=== PATIENT | female | born 1960 | race Caucasian/White ===

== ENCOUNTER 2025-04-16 14:17 | Outpatient (AMB) | payer MEDICAID, SELFPAY ==
--- OUTSIDE RECORDS SUMMARY | 2024-03-18 09:31 | XMS_ITS | Encounter Summary ---
Author Organization [facility] Address [address] [place] [address] Care Team Providers Care Salvationist Name Role Phone Lu Ibrahim MD Primary Care Prov ider Encounter Details Date Type Department Care Team (Late st Contact Info) Description 03/18/2024 10:31 AM EDT Hospital Encounter TH HISTORIC ENCOUNTERS EASTERN CONVERSION ONLY Social History Tobacco Use Types Packs/Day Years Used Date Smoking Tobacco: Never Smokeless Tobacco: Never Alcohol Use Standard Drinks/Week Comments Yes 0 (1 standard drink = 0.6 oz pur e alcohol) rare Housing Instability Answer Date Recorde d Are you worried that in the next 2 months you may not have stable housing? No 03/19/2025 Food Access & Nutrition Answer Date Rec orded Do you have access to a vari ety of food including fruits and vegetables? Yes 03/19/2025 Access to Healthcare Answer Date Record ed Within the last 3 months, ho w many times did you visit the emergency department for your medical care? 1 03/19/2025 Health Literacy Answer Date Recorded How often do you need to hav e someone help you when you read instructions, pamphlets, or other written material from your doctor or pharmacy? Never 03/19/2025 Caregiver: How often do you need to have someone help you when you read instructions, pamphlets, or other written material from your doctor or pharmacy? Not on file 03/19/2025 Financial Risk Answer Date Recorded How hard is it for you to pa y for the very basics like food, housing, medical care, and air conditioning / heating? Not very hard 03/19/2025 Transportation Answer Date Recorded Has the lack of transportati on kept you from meetings, work, or from getting things needed for daily living? No Has the lack of transportati on kept you from medical appointments or from getting medications? No 03/19/2025 Social Isolation Answer Date Recorded How often do you feel lonely or isolated from those around you? Not asked 03/19/2025 Food Risk Answer Date Recorded Within the past 12 months we worried whether our food would run out before we got money to buy more. Not asked 03/19/2025 Within the past 12 months th e food we bought just didn't last and we didn't have money to get more. Never true 03/19/2025 Dependent Care Answer Date Recorded Do you need help finding or paying for care for your loved ones. For example, child psychometrist or elderly care for an older adult? No 03/19/2025 Education Answer Date Recorded Do you think completing more education or training, like finishing a GED, going to college, or learning a trade, would be helpful for you? N/A 03/19/2025 Employment and Income Answer Date Recor ded During the last four weeks, have you been actively looking for work? No 03/19/2025 Living Situation Answer Date Recorded What is your living situation? Unrecognized valu e 03/19/2025 Interpersonal Safety Answer Date Record ed Physical Abuse Unrecognized value 04/13/2025 Verbal Abuse Unrecognized value 04/13/2025 Comments No Sex and Gender Information Value Date Recorded Sex Assigned at Female 04/01/2024 7:11 AM EST Legal Sex Female 8:40 PM EST Gender Identity Female 04/01/2024 7:11 AM EST Sexual Orientation Not on file documented as of this encounter Last Filed Vital Signs Vital Sign Reading Time Taken Comments Blood Pressure - - Pulse - - Temperature - - Respiratory Rate - - Oxygen Saturation - - Inhaled Oxygen Concentration - - Weight 96.2 kg (212 lb) 07/30/2023 9:08 AM EST Height 167.6 cm (5' 6 ) 07/30/2023 9:08 AM EST Body Mass Index 34.22 07/30/2023 9:08 AM EST documented in this encounter Functional Status * Calculated C-SSRS Risk Score (Lifetime/Recent) Answer Date of Assessment Author No Risk Indicated 04/05/2025 8:22 AM Lisa Lester, RN * [place] Suicide Severity Rating Scale (Screener/Recent Self-Report) Question Answer Date of Assessment Author 1. Wish to be (Past 1 Month) No 025 8:22 AM Lisa Lester, RN 2. Non-Specific Active Suici kinsey Thoughts (Past 1 Month) No 04/05/2025 8:22 AM Lisa Lester, RN 6. Suicidal Behavior (Lifetime) No 8:22 AM Lisa Lester, RN documented as of this encounter Progress Notes * Historical, Notes Results - 03/18/2024 10:30 AM EDT Patient arrives ambulatory to unit for a port flush. Patient sent in an urgent message to Dr. Souza regarding SOB that she's experienced the last 6 months. Patient feels that it could be anemia related, requesting to have labs drawn. Patient has a f/u appt with Dr. Souza on 03/31. Orders per Dr. Souza; cbcd, ferritan and iron studies. Lab results will be discussed at time of visit. Port accessed, +BR. Labs drawn per physician order. Port flushed per protocol. Next appt scheduled. Patient discharged stable, with steady gait. documented in this encounter Plan of Treatment Upcoming Encounters Date Type Department Care Team (Late st Contact Info) Description 04/17/2025 9:30 AM EST Appointment [facility] Center [address] [phone] 04/22/2025 10:30 AM EST Office Visit Adult Medicine [address] [phone] Lu Ibrahim MD [address] [place] [address] 07/01/2025 8:30 AM EST Office Visit Adult [address] [phone] Lu Ibrahim MD [address] [place] [address] 08/27/2025 8:45 AM EDT Office Visit [facility] Hematology Oncology [address] [place] [phone] Oswald Souza MD [address] [place] [address] documented as of this encounter Visit Diagnoses Not on filedocumented in this encounter Care Teams Salvationist Relationship Specialty Start Date End Date Lu Ibrahim MD PCP - General Internal Medicine 12/26/21 04/21/24 documented as of this encounter
--- OUTSIDE RECORDS SUMMARY | 2025-04-13 10:00 | XMS_ITS | Encounter Summary ---
Author Organization [facility] Address [address] [place] [address] Care Team Providers Care Chief Operator Synthesis Name Role Phone Lu Ibrahim MD Primary Care Prov ider Reason for Visit * Reason Comments Hospital Follow[facility] Encounter Details Date Type Department Care Team (Late st Contact Info) Description 04/13/2025 10:00 AM EST Office Visit Adult Medicine [address] [phone] Lu Ibrahim MD [address] [place] [address] Hospital discharge follow-up (Primary Dx); Complicated migraine; Positive Lyme disease serology; Brooks's palsy; Secondary malignant neoplasm of other specified sites (CMS/HCC V24, CMS/HCC V28); Moderate major depression (CMS/HCC V24, CMS/HCC V28) Social History Tobacco Use Types Packs/Day Years Used Date Smoking Tobacco: Never Smokeless Tobacco: Never Tobacco Cessation:Counseling Given: Not Answered Alcohol Use Standard Drinks/Week Comments Yes 0 [...] care for your loved ones. For example, teacher early childhood development or elderly care for an older adult? [...] Sign Reading Time Taken Comments Blood Pressure 117/75 04/13/2025 9:43 AM EST Pulse 79 04/13/2025 9:43 AM EST Temperature 36.6 C (97.9 F) 04/13/2025 9:43 AM EST Respiratory Rate 15 04/13/2025 9:43 AM EST Oxygen Saturation 99% 04/13/2025 9:43 AM EST Inhaled Oxygen Concentration - - Weight 100 kg (220 lb 12.8 oz) 04/13/2025 9:43 A M EST Height 167.6 cm (5' 6 ) 04/13/2025 9:43 AM EST Body Mass Index 35.64 04/13/2025 9:43 AM EST documented in this encounter Functional Status * Are you deaf or do you have serious difficulty hearing? Answer Date of Assessment Author No 04/04/2025 7:55 AM Sharla Gauthier RN * Are you blind or do you have serious difficulty seeing, even when wearing glasses? Answer Date of Assessment Author No 04/04/2025 7:55 AM Sharla Gauthier RN * Do you have serious difficulty walking or climbing stairs? Answer Date of Assessment Author No 04/04/2025 7:55 AM Sharla Gauthier RN * Do you have serious difficulty dressing or bathing? Answer Date of Assessment Author No 04/04/2025 7:55 AM Sharla Gauthier RN * Because of a physical, mental, or emotional condition, do you have serious difficulty doing errandsalone such as visiting the doctor? Answer Date of Assessment Author No 04/04/2025 7:55 AM Sharla Gauthier RN documented as of this encounter Mental Status * Because of a physical, mental, or emotional condition, do you have serious difficulty concentrating, remembering, or making decisions? (5 years old or older) Answer Entry Date Author No 04/04/2025 7:55 AM EST Sharla Love RN documented in this encounter Ordered Prescriptions Prescription Sig Dispense Quantity Refills Last Filled Start Date End Date doxycycline (VIBRAMYCIN) 100 mg capsule Take 1 capsule (100 mg total) by mouth 2 (two) times a day for 14 days. Take with at least 8 ounces (large glass) of water, do not lie down for 30 minutes after. Administer 2 hours before or after multivitamins, antacids, or other products containing polyvalent cations (i.e., calcium, iron, magnesium, selenium, zinc). 28 each 04/13/2025 documented in this encounter Progress Notes * Lu Ibrahim MD - 04/13/2025 10:00 AM ESTAssociated Problem(s): Secondary malignant neoplasm of other specified sites (CMS/HCC V24, CMS/HCC V 28) Patient with advance left breast malignancy. Initially there was concerned for metastatic disease given her neurological symptoms, however no evidence of it. * Lu Ibrahim MD - 04/13/2025 10:00 AM ESTAssociated Problem(s): Moderate major depression (CMS/HCC V24, CMS/HCC V28) Positive screening for depression. She is already established with and follows regularly. Continue Fluoxetine 10mg, Lorazepam as needed. * Lu Ibrahim MD - 04/13/2025 10:00 AM EST Images from the original note were not included. TRANSITIONAL CARE MANAGEMENT NOTE Meenakshi Bowden is a 64 y.o. (: 1960) female presents today for a transitional care appointment. The patient was discharged with a diagnosis of: complicated migraine with aura. Admit Date: Apr 05 Discharge Date: Apr 07 Date of Service: 04/13/2025 Facility: [facility] Date patient was contacted/or attempted to be contacted: 04/08/2025 (Unless visit is 2 days from discharge) The discharge summary and/or Transitional Care Management documentation was reviewed. As per ER notes, patient with a metastatic breast cancer, DVT, anxiety/depression, [facility], drooling and dysarthria. On evaluation came back she was found to have dysarthria. CT brain, MRI brain, MRI orbit/face/neck, head neck CT angiography with no acute abnormalities. Blood tests wnl, with the exception of lyme test that reported positive IgG, neg IgM. She does not remember any tick bite or recent exposure to outdoors. No fever or chills. She was evaluated by neurology, considered a complicated Migraine. Discharged home after deemed stable. Recommended to follow up with PCP and neurology. Comes today for a follow up. Dysarthria is persistent and some numbness on the left side of the tongue. Pending apt with neurology. No new symptoms. The following portions of the patient's history were reviewed by a provider in this encounter and updated as appropriate: Allergies[1] Current Outpatient Medications Medication Instructions apixaban (ELIQUIS) 2.5 mg, oral, 2 times daily anvojpu-hltbiokzieeii-fddjrxrf (EXCEDRIN MIGRAINE) 250-250-65 mg per tablet 1 tablet, Every 8 hoursPRN bisacodyL (DULCOLAX) 5 mg EC tablet Take 2 tablets by mouth right before beginning bowel prep. See instructions provided by the office calcium carbonate-vitamin D3 (Calcium 600 + D,3,) 600 mg-5 mcg (200 unit) per tablet 1 tablet, Daily diphenhydrAMINE (BENADRYL) 25 mg, Every 6 hours PRN diphenhydrAMINE-zinc acetate (BENADRYL) cream Apply topically 3 (three) times a day as needed for itching. doxycycline (VIBRAMYCIN) 100 mg, oral, 2 times daily, Take with at least 8 ounces (large glass) of water, do not lie down for 30 minutes after. Administer 2 hours before or after multivitamins, antacids, or other products containing polyvalent cations (i.e., calcium, iron, magnesium, selenium, zinc). FLUoxetine (PROZAC) 10 mg, oral, Daily letrozole (FEMARA) 2.5 mg, oral, Daily lidocaine-prilocaine (EMLA) 2.5-2.5 % cream Topical, As needed LORazepam (ATIVAN) 0.5 mg, oral, 2 times daily PRN, for anxiety meclizine (ANTIVERT) 25 mg, oral, 3 times daily PRN netvbreo-mgh-podn-FA-vit K-lut (Centrum Silver Women) 8 mg iron-400 mcg-50 mcg tablet Take by mouth. OMEGA-3 FATTY ACIDS ORAL Take by mouth. palbociclib (IBRANCE) 100 mg, oral, Daily, Take days 1-21 followed by 7 days off, repeat every 28 days. polyethylene glycol (Golytely) 236-22.74-6.74 -5.86 gram solution Take 4L by mouth once for one dose. May substitue any PEG. Starting at 2PM the day before your procedure drink 1 8oz glasses at your own pace until you complete half of the gallon. Finish 2nd half of the gallon at 8PM. rosuvastatin (CRESTOR) 10 mg, oral, Daily Depression Screening Over the last 2 weeks, how often have you been bothered by little interest or pleasure in doing things?: (Patient-Rptd) More than half the days Over the last 2 weeks, how often have you been bothered by feeling down, depressed, or hopeless?: (Patient-Rptd) Several days Depression Risk: (Patient-Rptd) 3 PHQ9 Full Set of Questions Over the last 2 weeks, how often have you been bothered by little interest or pleasure in doing things?: (Patient-Rptd) More than half the days Over the last 2 weeks, how often have you been bothered by feeling down, depressed, or hopeless?: (Patient-Rptd) Several days Over the last 2 weeks, how often have you been bothered by trouble falling or staying asleep, or sleeping too much?: (Patient-Rptd) Several days Over the last 2 weeks, how often have you been bothered by feeling tired or having little energy?: (Patient-Rptd) More than half the days Over the last 2 weeks, how often have you been bothered by poor appetite or overeating? : (Patient-Rptd) More than half the days Over the last 2 weeks, how often have you been bothered by feeling bad about yourself -- or that you are a failure or have let yourself or your family down?: (Patient-Rptd) Several days Over the last 2 weeks, how often have you been bothered by trouble concentrating on things, such asreading the newspaper or watching television?: (Patient-Rptd) Several days Over the last 2 weeks, how often have you been bothered by moving or speaking so slowly that other people could have noticed? Or the opposite -- being so fidgety or restless that you have been movingaround a lot more than usual?: (Patient-Rptd) Not at all Over the last 2 weeks, how often have you been bothered by thoughts that you would be better off or of hurting yourself in some way?: (Patient-Rptd) Not at all PHQ -9 Depression Risk Score: (Patient-Rptd) 10 Screening Result: (Patient-Rptd) Positive Risk Category: (Patient-Rptd) Moderate BP 117/75 Pulse 79 Temp 36.6 ??C (97.9 ??F) (Temporal) Resp 15 Ht 1.676 m (66 ) Wt 100 kg(220 lb 12.8 oz) BMI 35.64 kg/m?? SpO2: 99 % Physical Exam Vitals reviewed. Constitutional: Appearance: Normal appearance. Cardiovascular: Rate and Rhythm: Normal rate and regular rhythm. Heart sounds: Normal heart sounds. Pulmonary: Effort: Pulmonary effort is normal. Breath sounds: Normal breath sounds. Musculoskeletal: General: No swelling. Normal range of motion. Cervical back: Neck supple. Skin: General: Skin is warm. Neurological: Mental Status: She is alert. Comments: Dysartria and mild facial droop Assessment & Plan Hospital discharge follow-up Patient admitted to the hospital for an episode of dysarthria and facial droop. Images did not showany acute process. Blood tests unremarkable with the exception of Lyme test, positive for IgG, negative for IgM. No hx of exposure, and no other symptoms. Neurology evaluated her, considered a complicated migraine. She was discharged after deemed stable. Comes today for follow up, dysarthria is persistent and numbness on the left side of her tongue. Mild facial deviation. She will see neurology. We discussed about the lyme test, that could represent an old infection, but at this point is hard to know. Will recheck new levels in 2 weeks to confirm. However given her symptoms, we decided to start treatment with Doxycycline for 2 weeks. Will test for OSWALDO, and she would like her B12 levels tested. Order was placed today. Complicated migraine As above Positive Lyme disease serology As above Brooks's palsy As above Orders: Vitamin B2; Future OSWALDO IFA with titer and pattern; Future Borrelia burgdorferi antibody; Future Secondary malignant neoplasm of other specified sites ([facility] V24, [facility] V28) Patient with advance left breast malignancy. Initially there was concerned for metastatic disease given her neurological symptoms, however no evidence of it. Moderate major depression ([facility] V24, [facility] V28) Positive screening for depression. She is already established with and follows regularly. Continue Fluoxetine 10mg, Lorazepam as needed. The complexity of medical decision making for this patient's transitional care is moderate. As part of the TCM, I have: Reviewed discharge information, I.e.: discharge summary or jmktrfktts-hm-kjyd documents, Reviewed the patient's need for, or follow-up on, diagnostic tests and treatments,Educated the patient, family, guardian, or caregiver, and Established or re-establish referrals andarrange needed community resources Advance Care Planning Advance care planning is the process of planning for future medical care in case you are unable to make your own medical decisions. It involves choosing a health care franchise sales representative and reviewing future health care directives. The patient Advance Directives: does have advance directives and/or surrogate decision maker.. Lu Dickerson MD ADULT MEDICINE [address] [address] Dept: [phone] Dept [1] Allergies Allergen Reactions Adhesive Tape-Silicones Other Penicillins Hives Sulfa (Sulfonamide Antibiotics) Hives Vicodin [Hydrocodone-Acetaminophen] Other documented in this encounter Plan of Treatment Upcoming Encounters Date Type Department Care Team (Late st Contact Info) Description 04/17/2025 9:30 AM EST Appointment [facility] Center [address] [place] [phone] 04/22/2025 10:30 AM EST Office Visit Adult [address] [phone] Lu Ibrahim MD [address] [place] [address] 07/01/2025 8:30 AM EST Office Visit [address] [phone] Lu Ibrahim MD [address] [place] [address] 08/27/2025 8:45 AM EDT Office Visit [facility] Hematology Oncology [address] [place] [phone] Oswald Souza MD [address] [place] [address] Pending Results Name Type Priority Associated Diagnoses Date /Time Vitamin B2 Lab Routine Brooks's palsy 04/13/2025 11:42 AM EST Scheduled Orders Name Type Priority Associated Diagnoses Orde r Schedule Vitamin B2 Lab Routine Brooks's palsy 1 Occurrences starting 04/13/2025 until 04/13/2026 Borrelia burgdorferi antibody Lab Routine Brooks's palsy Expected: 04/27/2025, Expires: 04/13/2026 documented as of this encounter Results * OSWALDO IFA with titer and pattern (04/13/2025 11:42 AM EST) OSWALDO Negative Negative 04/14/2025 12:05 PM EST [facility] Comment:OSWALDO performed by ind irect immunofluorescence (IFA) using HEp-2 substrate. 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 ([facility] V24, [facility] V28) Moderate major depression ([facility] V24, [facility] V28) Major depressive disorder, single episode, moderate documented in this encounter Discontinued Medications Medication Sig Discontinue Reason Start Date End Da te calcium carbonate-vitamin D3 600 mg-20 mcg (800 unit) tablet TAKE 1 TABLET BY MOUTH THREE TIMES A DAY 03/03/2025 04/13/2025 documented as of this encounter Additional Health Concerns Active Problems Noted Date Diagnosed Date Autogenerated Problem 04/13/2025 Assessment Noted Time PHQ-9 Depression Total Score: 10 025 9:18 AM EST documented as of this encounter Care Teams Chief Operator Synthesis Relationship Specialty Start Date End Date Lu Ibrahim MD [address] [place] [address] PCP - General Internal Medicine 04/02/25 documented as of this encounter
--- OUTSIDE RECORDS SUMMARY | 2025-04-13 11:40 | XMS_ITS | Encounter Summary ---
Author Organization [facility] Address [address] [place] [address] Care Team Providers Care Solar Energy System Installer Helper Name Role Phone Lu Ibrahim MD Primary Care Prov ider Encounter Details Date Type Department Care Team (Late st Contact Info) Description 04/13/2025 11:40 AM EST Lab Draw Station - [address] [place] [phone] Brooks's palsy Social History Tobacco Use Types Packs/Day Years [...] Record ed Within the last 3 months, arturo w many times did you visit the [...] for your loved ones. For example, child welfare social worker or elderly care for an older adult? [...] on file documented as of this encounter Functional Status * Are you [...] Entry Date Author No 04/04/2025 7:55 AM Sharla Gauthier RN documented in this encounter Plan of Treatment Upcoming Encounters Date Type Department Care Team (Late st Contact Info) Description 04/17/2025 9:30 AM EST Appointment [facility] [address] [place] [phone] 04/22/2025 10:30 AM EST Office Visit Adult Medicine [address] [phone] Lu Ibrahim MD [address] [place] [address] 07/01/2025 8:30 AM EST Office Visit Adult Medicine [address] [phone] Lu Ibrahim MD [address] [place] [address] 08/27/2025 8:45 AM EDT Office Visit [facility] Hematology Oncology [address] [place] [phone] Oswald Souza MD [address] [place] [address] Pending Results Name Type Priority Associated Diagnoses Date /Time Vitamin B2 Lab Routine Brooks's palsy 04/13/2025 11:42 AM EST documented as of this encounter Procedures Procedure Name Priority Date/Time Associated Diagnosis Comments OSWALDO IFA WITH TITER AND PATTERN Routine 04/13/2025 11:42 AM EST Brooks's palsy documented in this encounter Results * OSWALDO IFA with titer and pattern (04/13/2025 11:42 AM EST) OSWALDO Negative Negative 04/14/2025 12:05 PM EST [facility] Comment:OSWALDO performed by ind irect immunofluorescence (IFA) using HEp-2 substrate. Blood Venous blood specimen / Unknown Venipuncture / Unknown 04/13/2025 11:42 AM EST 04/13/2025 11:57 AM EST us Lu Ibrahim MD LAB BLOOD ORDERABL ES Final Result [facility] [address] [place] [address], documented in this encounter Visit Diagnoses Diagnosis Brooks's palsy documented in this encounter Additional Health Concerns Active Problems Noted Date Diagnosed Date Autogenerated Problem 04/13/2025 Assessment Noted Time PHQ-9 Depression Total Score: 10 025 9:18 AM EST documented as of this encounter Care Teams Solar Energy System Installer Helper Relationship Specialty Start Date End Date Lu Ibrahim MD [address] [place] [phone] PCP - General Internal Medicine 04/02/25 documented as of this encounter
--- OUTSIDE RECORDS SUMMARY | 2025-04-13 12:27 | XMS_ITS | Encounter Summary ---
Author Organization [facility] Address [address] [place] [address] Care Team Providers Care Alterations Sewer Name Role Phone Lu Ibrahim MD Primary Care Prov ider Reason for Referral * Hospital - Outpatient (Routine) - Authorized Specialty Diagnoses / Procedures Referred By Contac t Referred To Contact Diagnoses Anemia, unspecified type Procedures EGD Anesthesia - MAC; [facility] Betito Dawson MD [address] [place] [phone] Phone: tel: fax: [facility] Referral ID Status Reason Start Date Expiration Date V isits Requested Visits Authorized [id number] Authorized 04/13/2025 04/13/2026 1 1 * Hospital - Outpatient (Routine) - Authorized Specialty Diagnoses / Procedures Referred By Contac t Referred To Contact Diagnoses Anemia, unspecified type Procedures COLONOSCOPY Anesthesia - MAC; [facility] Betito Dawson MD [address] [place] [phone] Phone: tel: fax: [facility] Referral ID Status Reason Start Date Expiration Date V isits Requested Visits Authorized [id number] Authorized 04/13/2025 04/13/2026 1 1 Reason for Visit * Hospital - Outpatient (Routine) - Authorized Specialty Diagnoses / Procedures Referred By Contac t Referred To Contact Diagnoses Anemia, unspecified type Procedures EGD Anesthesia - MAC; [facility] Betito Dawson MD [address] [address] Phone: tel: fax: [facility] Referral ID Status Reason Start Date Expiration Date V isits Requested Visits Authorized [id number] Authorized 04/13/2025 04/13/2026 1 1 Encounter Details Date Type Department Care Team (Latest Contact Info) Description 04/13/2025 12:27 PM EST Hospital Encounter [facility] Endoscopy [address] [place] [address] Betito Dawson MD [address] [address] Anemia, unspecified type Social History Tobacco Use Types Packs/Day Years [...] care for your loved ones. For example, childbirth and infant care teacher or elderly care for an older adult? [...] Sign Reading Time Taken Comments Blood Pressure 128/75 04/13/2025 1:51 PM EST Pulse 78 04/13/2025 1:51 PM EST Temperature 36.8 C (98.2 F) 04/13/2025 1:31 PM EST Respiratory Rate 16 04/13/2025 1:51 PM EST Oxygen Saturation 99% 04/13/2025 1:51 PM EST Inhaled Oxygen Concentration - - Weight 99.8 kg (220 lb) 04/13/2025 12:44 PM EST Height 167.6 cm (5' 6 ) 04/13/2025 12:44 PM EST Body Mass Index 35.51 04/13/2025 12:44 PM EST documented in this encounter Functional Status [...] Sharla Gauthier RN documented in this encounter Progress Notes * Micaela Perdomo RN - 04/13/2025 1:21 PM EST Colonoscopy complete at 1323 EGD started at 1326 documented in this encounter H&P Notes * Betito Dawson MD - 04/13/2025 3:00 PM EST Pre-Op Diagnosis: Melena, anemia, FH colon cancer Proposed Procedure: colon and EGD Performing Surgeon/MD/Endoscopist: Betito Dawson MD Medical/History: Medical History[1]Surgical History[2] Medications/Allergies: Prior to Admission medications Medication Sig Start Date End Date Taking? Authorizing Provider calcium carbonate-vitamin D3 (Calcium 600 + D,3,) 600 mg-5 mcg (200 unit) per tablet Take 1 tablet by mouth 1 (one) time each day. Yes Historical Provider, FLUoxetine (PROzac) 10 mg capsule Take 1 capsule (10 mg total) by mouth 1 (one) time each day. 01/13/25 Yes Lu Ibrahim MD letrozole (FEMARA) 2.5 mg tablet TAKE 1 TABLET BY MOUTH 1 TIME EACH DAY. 12/01/24 Yes Oswald Souza MD apquocwd-pmc-oyja-FA-vit K-lut (Centrum Silver Women) 8 mg iron-400 mcg-50 mcg tablet Take by mouth. Yes Historical Provider, palbociclib (IBRANCE) 100 mg Take 1 tablet (100 mg total) by mouth 1 (one) time each day. Take days1-21 followed by 7 days off, repeat every 28 days. 03/11/25 Yes Oswald Souza MD rosuvastatin (CRESTOR) 10 mg tablet TAKE 1 TABLET BY MOUTH ONCE A DAY 02/24/25 Yes Serenity Chatman MD apixaban (ELIQUIS) 2.5 mg tablet Take 1 tablet (2.5 mg total) by mouth 2 (two) times a day. Historical Provider, hrnxoik-nwdhqrnplnsvg-xwaqnhrr (EXCEDRIN MIGRAINE) 250-250-65 mg per tablet Take 1 tablet by mouth every 8 (eight) hours if needed for headaches. 03/25/25 Historical Provider, bisacodyL (DULCOLAX) 5 mg EC tablet Take 2 tablets by mouth right before beginning bowel prep. See instructions provided by the office 04/02/25 Betito Dawson MD diphenhydrAMINE (BENADRYL) 25 mg capsule Take 1 capsule (25 mg total) by mouth every 6 hours as needed. Historical Provider, diphenhydrAMINE-zinc acetate (BENADRYL) cream Apply topically 3 (three) times a day as needed for itching. Historical Provider, doxycycline (VIBRAMYCIN) 100 mg capsule Take 1 capsule (100 mg total) by mouth 2 (two) times a day for 14 days. Take with at least 8 ounces (large glass) of water, do not lie down for 30 minutes after. Administer 2 hours before or after multivitamins, antacids, or other products containing polyvalent cations (i.e., calcium, iron, magnesium, selenium, zinc). 04/13/25 04/27/25 Lu Ibrahim MD lidocaine-prilocaine (EMLA) 2.5-2.5 % cream Apply topically if needed for mild pain. 12/01/24 Oswald Riggs MD LORazepam (ATIVAN) 0.5 mg tablet Take 1 tablet (0.5 mg total) by mouth 2 (two) times a day if needed for anxiety. for anxiety 03/30/25 Lu Dickerson MD meclizine (ANTIVERT) 25 mg tablet Take 1 tablet (25 mg total) by mouth 3 (three) times a day if needed for dizziness. 04/14/24 Lu Ibrahim MD OMEGA-3 FATTY ACIDS ORAL Take by mouth. Historical Provider, polyethylene glycol (Golytely) 236-22.74-6.74 -5.86 gram solution Take 4L by mouth once for one dose. May substitue any PEG. Starting at 2PM the day before your procedure drink 1 8oz glasses at your own pace until you complete half of the gallon. Finish 2nd half of the gallon at 8PM. 04/02/25 Betito Dawson MD apixaban (Eliquis) 2.5 mg tablet Take 1 tablet (2.5 mg total) by mouth 2 (two) times a day. 03/30/2511 Lu Ibrahim MD calcium carbonate-vitamin D3 600 mg-20 mcg (800 unit) tablet TAKE 1 TABLET BY MOUTH THREE TIMES A DAY Patient taking differently: Take 1 each by mouth 2 (two) times a day. 03/03/25 04/13/25 Lu Ibrahim MD Patient Age:64 y.o. Vitals: Vitals: 04/13/25 1244 BP: 131/75 Pulse: 78 Resp: 16 Temp: 37.2 ??C (98.9 ??F) SpO2: 98% Physical Exam: Mental Status: Clear HEENT: WNL Heart: WNL Lungs: WNL Abdomen: WNL Extremities: WNL Neuro: WNL Labs: Imaging: Diagnosis/Plan: Colonoscopy and EGD [1] Past Medical History: Diagnosis Date Allergic rhinitis 06/18/2017 DX:Allergic rhinitis Anxiety and depression DX:Anxiety and depression At high risk for breast cancer 10/30/2017 DX:At high risk for breast cancer Breast cancer ([facility] V24, [facility] V28) Congenital renal anomaly DX:Congenital renal anomaly; COMMENT: Hydronephrosis Depression DX:Depression DVT (deep venous thrombosis) ([facility] V24, [facility] V28) Elevated liver enzymes 01/17/2022 DX:Elevated liver enzymes Endometrial cancer ([facility] V24, [facility] V28) Exercise-induced asthma DX:Exercise-induced asthma Family history of breast cancer DX:Family history of breast cancer Hemorrhoids DX:Hemorrhoids Lichen sclerosus DX:Lichen sclerosus [2] Past Surgical History: Procedure Laterality Date BLADDER SUSPENSION PROCEDURE: HISTORICAL BLADDER SUSPENSION OTHER SURGICAL HISTORY Left PROCEDURE: HISTORY OTHER; COMMENT: L breast ductectomy OTHER SURGICAL HISTORY Left 07/08/2013 PROCEDURE: MO LAPAROSCOPY SURG PYELOPLASTY; COMMENT: robotic assisted left pyeloplasty for UPJ obstruction STEREOTACTIC CORE BIOPSY Left documented in this encounter Procedure Notes * Zhang Reynaga RN - 04/13/2025 3:00 PM EST Pt alert and oriented Tolerating po intake well Md bedside to speak with pt Call [facility] All belongings returned to pt documented in this encounter Plan of Treatment Upcoming Encounters Date Type Department Care Team (Late st Contact Info) Description 04/17/2025 9:30 AM EST Appointment [facility] [address] [place] [address] [address] [place] [phone] 04/22/2025 10:30 AM EST Office Visit [address] [phone] Lu Ibrahim MD [address] [place] [address] 07/01/2025 8:30 AM EST Office Visit [address] [phone] Lu Ibrahim MD [address] [place] [address] 08/27/2025 8:45 AM EDT Office Visit [facility] Hematology Oncology [address] [place] [phone] Oswald Souza MD [address] [place] [address] documented as of this encounter Procedures Procedure Name Priority Date/Time Associated Diagnosis Comments COLONOSCOPY Routine 04/13/2025 1:30 PM EST Anemia, unspecified type EGD Routine 04/13/2025 1:30 PM EST Anemia, unspecified type documented in this encounter Results * EGD Anesthesia - MAC; [facility] (04/13/2025 1:30 PM EST) Anatomical Region Laterality Modality Endoscopy 04/13/2025 1:24 PM EST Impressions 04/13/2025 1:30 PM EST - Normal esophagus. - Normal stomach. - Normal examined duodenum. - No specimens collected. Recommendation: - Continue present medications. Narrative 04/13/2025 1:30 PM EST [facility] GI Patient Name: Meenakshi Bowden Procedure Date: 04/13/2025 1:24 PM Date of : 1960 Age: 64 Room: ROOM 15 Gender: Female Note Status: Finalized Attending MD: Betito Dawson MD, Procedure Date No Time: 04/13/2025 Procedure: Upper GI endoscopy Indications: Melena, Anemia Providers: Betito Dawson MD Referring MD: Betito Dawson MD Medicines: Propofol per Anesthesia Complications: No immediate complications. Estimated Blood Loss: Estimated blood loss: none. Procedure: Pre-Anesthesia Assessment: - ASA Grade Assessment: III - A patient with severe systemic disease. After obtaining informed consent, the endoscope was passed under direct vision. Throughout the procedure, the patient's blood pressure, pulse, and oxygen saturations were monitored continuously.The Olympus Gastroscope was introduced through the mouth, and advanced to the second part of duodenum. The upper GI endoscopy was accomplished without difficulty. The patient tolerated the procedure well. Findings: The esophagus was normal. The stomach was normal. The examined duodenum was normal. Procedure Code(s): --- Professional --- 84412, Esophagogastroduodenoscopy, flexible, transoral; diagnostic, including collection of specimen(s) by brushing or washing, when performed (separate procedure) Diagnosis Code(s): --- Professional --- K92.1, Melena (includes Hematochezia) D64.9, Anemia, unspecified CPT copyright 2020 [employer]. All rights reserved. The codes documented in this report are preliminary and upon office machine inspector review may be revised to meet current compliance requirements. Betito Dawson MD 04/13/2025 1:30:22 PM This report has been signed electronically.Betito Dawson MD Number of Addenda: 0 Note Initiated On: 04/13/2025 1:24 PM Scope In: Scope Out: Endoscopy Department at [facility] - [address] [place] [phone] Procedure Note Betito Dawson MD - 04/13/2025 [facility] GI Patient Name: Meenakshi Bowden Procedure Date: 04/13/2025 1:24 PM Date of : 1960 Age: 64 Room: ROOM 15 Gender: Female Note Status: Finalized Attending MD: Betito Dawson MD, Procedure Date No Time: 04/13/2025 Procedure: Upper GI endoscopy Indications: Melena, Anemia Providers: Betito Dawson MD Referring MD: Betito Dawson MD Medicines: Propofol per Anesthesia Complications: No immediate complications. Estimated Blood Loss: Estimated blood loss: none. Procedure: Pre-Anesthesia Assessment: - ASA Grade Assessment: III - A patient with severe systemic disease. After obtaining informed consent, the endoscope was passed under direct vision. Throughout theprocedure, the patient's blood pressure, pulse, and oxygen saturations were monitored continuously.The Olympus Gastroscope was introduced through the mouth, and advanced to the second part of duodenum. The upperGI endoscopy was accomplished without difficulty. The patient tolerated the procedure well. Findings: The esophagus was normal. The stomach was normal. The examined duodenum was normal. Procedure Code(s): --- Professional --- 62086, Esophagogastroduodenoscopy, flexible, transoral; diagnostic, including collection of specimen(s) by brushing or washing, when performed (separate procedure) Diagnosis Code(s): --- Professional --- K92.1, Melena (includes Hematochezia) D64.9, Anemia, unspecified CPT copyright 2020 [employer]. All rights reserved. The codes documented in this report are preliminary and upon office machine inspector reviewmay be revised to meet current compliance requirements. Betito Dawson MD 04/13/2025 1:30:22 PM This report has been signed electronically.Betito Dawson MD Number of Addenda: 0 Note Initiated On: 04/13/2025 1:24 PM Scope In: Scope Out: Endoscopy Department at [facility] - [address] [place] [phone] IMPRESSION: - Normal esophagus. - Normal stomach. - Normal examined duodenum. - No specimens collected. Recommendation: - Continue present medications. us Betito Dwason MD GI~PROCEDURE ORDERABLES Fin al Result * COLONOSCOPY Anesthesia - MAC; [facility] (04/13/2025 1:30 PM EST) Anatomical Region Laterality Modality Endoscopy 04/13/2025 1:04 PM EST Impressions 04/13/2025 1:24 PM EST - Preparation of the colon was fair. - The entire examined colon is normal on direct and retroflexion views. - No specimens collected. Recommendation: - Repeat colonoscopy in 5 years for screening purposes. Narrative 04/13/2025 1:24 PM EST [facility] Patient Name: Meenakshi Bowden Procedure Date: 04/13/2025 1:04 PM Date of : 1960 Age: 64 Room: ROOM 15 Gender: Female Note Status: Finalized Attending MD: Betito Dawson MD, Procedure Date No Time: 04/13/2025 Procedure: Colonoscopy Indications: Screening in patient at increased risk: Family history of 1st-degree relative with colorectal cancer before age 60 years Providers: Betito Dawson MD Referring MD: Betito Dawson MD Medicines: Propofol per Anesthesia Complications: No immediate complications. Estimated Blood Loss: Estimated blood loss: none. Procedure: Pre-Anesthesia Assessment: - ASA Grade Assessment: III - A patient with severe systemic disease. After I obtained informed consent, the scope was passed under direct vision. Throughout the procedure, the patient's blood pressure, pulse, and oxygen saturations were monitored continuously.The Colonoscope was introduced through the anus and advanced to the cecum, identified by appendiceal orifice and ileocecal valve. The colonoscopy was performed without difficulty. The patient tolerated the procedure well. The quality of the bowel preparation was adequate and fair. Findings: The perianal and digital rectal examinations were normal. The entire examined colon appeared normal on direct and retroflexion views. Procedure Code(s): --- Professional --- G0105, Colorectal cancer screening; colonoscopy on individual at high risk Diagnosis Code(s): --- Professional --- Z80.0, Family history of malignant neoplasm of digestive organs CPT copyright 2020 [employer]. All rights reserved. The codes documented in this report are preliminary and upon office machine inspector review may be revised to meet current compliance requirements. Betito Dawson MD 04/13/2025 1:24:31 PM This report has been signed electronically.Betito Dawson MD Number of Addenda: 0 Note Initiated On: 04/13/2025 1:04 PM Scope In: Scope Out: Endoscopy Department at [facility] - [address] [place] [phone] Procedure Note Betito Dawson MD - 04/13/2025 [facility] GI Patient Name: Meenakshi Bowden Procedure Date: 04/13/2025 1:04 PM Date of : 1960 Age: 64 Room: ROOM 15 Gender: Female Note Status: Finalized Attending MD: Betito Dawson MD, Procedure Date No Time: 04/13/2025 Procedure: Colonoscopy Indications: Screening in patient at increased risk: Familyhistory of 1st-degree relative with colorectal cancerbefore age 60 years Providers: Betito Dawson MD Referring MD: Betito Dawson MD Medicines: Propofol per Anesthesia Complications: No immediate complications. Estimated Blood Loss: Estimated blood loss: none. Procedure: Pre-Anesthesia Assessment: - ASA Grade Assessment: III - A patient with severe systemic disease. After I obtained informed consent, the scope was passed under direct vision. Throughout theprocedure, the patient's blood pressure, pulse, and oxygen saturations were monitored continuously.The Colonoscope was introduced through the anus and advanced to the cecum, identified by appendiceal orifice and ileocecal valve. The colonoscopy was performed without difficulty. The patient tolerated the procedure well. The quality of the bowel preparation was adequate and fair. Findings: The perianal and digital rectal examinations were normal. The entire examined colon appeared normal on direct and retroflexion views. Procedure Code(s): --- Professional --- G0105, Colorectal cancer screening; colonoscopy on individual at high risk Diagnosis Code(s): --- Professional --- Z80.0, Family history of malignant neoplasm of digestive organs CPT copyright 2020 [employer]. All rights reserved. The codes documented in this report are preliminary and upon office machine inspector reviewmay be revised to meet current compliance requirements. Betito Dawson MD 04/13/2025 1:24:31 PM This report has been signed electronically.Betito Dawson MD Number of Addenda: 0 Note Initiated On: 04/13/2025 1:04 PM Scope In: Scope Out: Endoscopy Department at [facility] - [address] [place] [phone] IMPRESSION: - Preparation of the colon was fair. - The entire examined colon is normal on direct and retroflexion views. - No specimens collected. Recommendation: - Repeat colonoscopy in 5 years for screeningpurposes. us Betito Dawson MD GI~PROCEDURE ORDERABLES Fin al Result documented in this encounter Visit Diagnoses Diagnosis Anemia, unspecified type documented in this encounter Historical Medications * This list may reflect changes made after this encounter. apixaban (ELIQUIS) 2.5 mg tablet Take 1 tablet (2.5 mg total) by mouth 2 (two) times a day. calcium carbonate-vitamin D3 (Calcium 600 + D,3,) 600 mg-5 mcg (200 unit) per tablet Take 1 tablet by mouth 1 (one) time each day. added in this encounter Orders Discharge Count Last Ordered Date First Orde red Date DISCHARGE PATIENT 1 04/13/2025 documented in this encounter Additional Health Concerns Active Problems Noted Date Diagnosed Date Autogenerated Problem 04/13/2025 Assessment Noted Time PHQ-9 Depression Total Score: 10 025 9:18 AM EST documented as of this encounter Care Teams Alterations Sewer Relationship Specialty Start Date End Date Lu Ibrahim MD [address] [place] [phone] PCP - General Internal Medicine 04/02/25 documented as of this encounter
--- OUTSIDE RECORDS SUMMARY | 2025-04-13 13:02 | XMS_ITS | Encounter Summary ---
Author Organization [facility] Address [address] [place] [address] Care Team Providers Care Market Survey Representative Name Role Phone Lu Ibrahim MD Primary Care Prov ider Encounter Details Date Type Department Care Team (Late st Contact Info) Description 04/13/2025 1:02 PM EST Anesthesia Event [facility] [address] [place] [address] Dominique Madrigal MD [address] [place] [address] Shraddha Elizabeth CRNA [address] [place] [address] Anesthesia Record Procedure Summary Procedure Name Responsible Anesthesiologist Anesthesia Start Time Anesthesia Stop Time COLONOSCOPY Dominique Madrigal MD 04/13/25 1302 1335 Events Date Time Event Comment 04/13/2025 1300 1302 In Room 1302 An Start 1302 An Start Data The patient wa s reevaluated immediately before moderate or deep sedation use and before anesthesia induction. 1316 Anesthesia Ready 1330 Out of Room 1335 an stop data 1335 Handoff to RN I completed my handoff to the receiving nurse during which we: 1. Identified the patient 2. Identified the responsible provider 3. Reviewed the pertinent medical history 4. Discussed the surgical course 5. Reviewed intra-op anesthesia management and issues during anesthesia 6. Set expectations for post-procedure period 7. Allowed opportunity for questions and acknowledgement of understanding. 1335 An Stop Meds Name Total propofol (DIPRIVAN) injection 10 mg/mL 3 00 mg lidocaine PF (XYLOCAINE-MPF) local injec tion 2% 100 mg lactated Ringer's infusion 300 mL * Agents No agents on file. * Blood No blood administrations on file. Lines, Drains, and Airways Type Details Placement Removal Implantable Port Single Lumen 06/29/21; 1443; Right; Chest; Jonh Page MD; Chest 06/29/21 1443 by Jqaueline Sainz RN Peripheral IV Placement Date: 04/13/25; Placement Time: 1246; Catheter Size: 20 G; Orientation: Anterior, Proximal, Right; Location: Forearm; Insertion Attempts: 1; Patient Tolerance: Tolerated well; Removal Date: 04/13/25; Removal Time: 1358 04/13/25 1246 by Lani Capone RN 04/13/25 1358 by Zhang Reynaga RN documented in this encounter Social History Tobacco Use Types Packs/Day Years [...] for your loved ones. For example, child care counselor or elderly care for an older adult? [...] Assessment Author No 04/04/2025 7:55 AM Sharla Gauthier, RN * Are you blind or do [...] documented in this encounter Progress Notes * Dominique Madrigal MD - 04/13/2025 3:03 PM EST Patient: Meenakshi Bowden Procedure Summary Date: 04/13/25 Room / Location: [facility] Anesthesia Start: 1302 Anesthesia Stop: 1335 Procedures: COLONOSCOPY EGD Diagnosis: Anemia, unspecified type (Screening in patient at increased risk/FH 1st-deg rel with colon cancer < 60 yo) (Melena) (Anemia) Scheduled Providers: Betito Dawson MD; Tyrone Patel MD Responsible Provider: Dominique Madrigal MD Anesthesia Type: MAC ASA Status: 3 Anesthesia Plan: MAC Last Vitals: Vitals Value Taken Time BP 128/75 04/13/25 13:51 Temp 36.8 ??C (98.2 ??F) 04/13/25 13:31 Pulse 78 04/13/25 13:51 Resp 16 04/13/25 13:51 SpO2 99 % 04/13/25 13:51 Pain Score: 0 - No pain Anesthesia Post Evaluation Patient location during evaluation: PACU Patient participation: complete - patient participated Level of consciousness: awake Pain management: adequate Airway patency: patent Anesthetic complications: no Cardiovascular status: acceptable Respiratory status: acceptable Hydration status: acceptable Comments: Patient seen and evaluated prior to discharge from PACU. Note may have been written at a later time due to clinical necessity. Nausea: No Vomiting: No No notable events documented. 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 V28) Clinical information reviewed: Allergies Meds OB Status Anesthesia Plan ASA 3 Anesthesia Plan: MAC Anesthesia Risks Discussed serious complications Induction method: intravenous Anesthetic plan and risks discussed with patient. Anesthesia Plan discussed with attending. Anesthesia Evaluation Airway Mallampati: III Thyromental distance: > 3 finger breadths Neck ROM: full Dental - normal exam Pulmonary breath sounds clear to auscultation (+) asthma Cardiovascular Rhythm: regular Rate: normal Neuro/Psych (+) CVA (ruled out) Comments: H/o recurrent DVT aphasia Mental Status: alert and oriented GI/Hepatic/Renal (+) chronic renal disease Endo/Other Abdominal PONV RISK SCORE: 2 Vitals: 04/13/25 1244 BP: 131/75 Pulse: 78 Resp: 16 Temp: 37.2 ??C (98.9 ??F) TempSrc: Temporal SpO2: 98% Weight: 99.8 kg (220 lb) Height: 1.676 m (66 ) SpO2 Readings from Last 1 Encounters: 04/13/25 98% WBC Date Value Ref Range Status 04/06/2025 3.1 (L) 4.8 - 10.8 K/mcL Final RBC Date Value Ref Range Status 04/06/2025 2.90 (L) 3.80 - 4.80 M/mcL Final Hemoglobin Date Value Ref Range Status 04/06/2025 10.5 (L) 11.5 - 16.0 g/dL Final Hematocrit Date Value Ref Range Status 04/06/2025 31.0 (L) 35.0 - 47.0 % Final Platelets Date Value Ref Range Status 04/06/2025 163 130 - 400 K/mcL Final MCV Date Value Ref Range Status 04/06/2025 106.9 (H) 79.0 - 98.0 FL Final Allergies[1] STOP BANG: No data recorded NPO Status: No data recorded [1] Allergies Allergen Reactions Adhesive Tape-Silicones Other Penicillins Hives Sulfa (Sulfonamide Antibiotics) Hives Vicodin [Hydrocodone-Acetaminophen] Other documented in this encounter Plan of Treatment Upcoming Encounters Date Type Department Care Team (Late st Contact Info) Description 04/17/2025 9:30 AM EST Appointment [facility] [address] [place] [phone] 04/22/2025 10:30 AM EST Office Visit Adult Medicine [address] [phone] Lu Ibrahim MD [address] [place] [address] 07/01/2025 8:30 AM EST Office Visit Adult [address] [phone] Lu Ibrahim MD [address] [place] [address] 08/27/2025 8:45 AM EDT Office Visit [facility] [address] [place] [phone] Oswald Souza MD [address] [place] [phone] documented as of this encounter Visit Diagnoses Not on filedocumented in this encounter Administered Medications Inactive Administered Medications - up to 3 most recent administrations Medication Order MAR Action Action Date Dose Rate Site lactated Ringer's infusion intravenous, Continuous PRN, Starting on Sun04/13/25 at 1301, Anesthesia Intraprocedure New Bag 04/13/2025 1:01 PM EST lidocaine (PF) (XYLOCAINE-MPF) 2 % injection injection, As needed, Starting on Sun04/13/25 at 1313, Anesthesia Intraprocedure Given 04/13/2025 1:18 PM EST 50 mg Given 04/13/2025 1:13 PM EST 50 mg propofoL (DIPRIVAN) injection intravenous, As needed, Starting on Sun04/13/25 at 1313, Anesthesia Intraprocedure Given 04/13/2025 1:[address] 100 mg Given 04/13/2025 1:18 PM EST 100 mg Given 04/13/2025 1:13 PM EST 100 mg documented in this encounter Additional Health Concerns Active Problems Noted Date Diagnosed Date Autogenerated Problem 04/13/2025 Assessment Noted Time PHQ-9 Depression Total Score: 10 025 9:18 AM EST documented as of this encounter Care Teams Market Survey Representative Relationship Specialty Start Date End Date Lu Ibrahim MD [address] [place] [phone] PCP - General Internal Medicine 04/02/25 documented as of this encounter
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
--- OUTSIDE RECORDS SUMMARY | 2025-04-16 19:42 | XMS_ITS | Encounter Summary ---
Author Organization [facility] Address [address] [address] [facility] [address] [place] [address] Phone Care Team Providers Care International Flight Attendant Name Role Phone Katrin Vivas MD Unavailable [phone] Cyndee Young MD, MPH Unavailable [phone] Rashida Weber MD Unavailable [phone] Oswald Souza MD Unavailable [phone] Katrin Mcgrath EPIDEMIOLOGIST Unavailable [phone] Lu Gomes MD Primary Care Prov ider Mary Ann Aiken MD Unavailable [phone] [address] PATROL DEPUTY SHERIFF Unavailable [phone] Reed Barnett DMD Unavailable [phone] Pacheco Whatley MD Unavailable [phone] Ulices Santana MD Unavailable Encounter Details Date Type Department Care Team (Late st Contact Info) Description 12/13/2022 Procedure Pass [facility], Ct Scan - [address] [address] Social History Tobacco Use Types Packs/Day Years Used Date Smoking Tobacco: Never Child or Family Care Answer Date Record ed Do you have problems with on e of the following making it difficult for you to work, study, or receive health care? No 09/01/2021 Education Answer Date Recorded Are you interested in help w ith more adult education (for example, completing high school, GED, job training, learning the [place] language, technical skills, or developing parenting skills)? No 09/01/2021 Are you concerned about learning? Not on file 09/01/2021 No 09/01/2021 Yes 09/01/2021 Food Answer Date Recorded Within the past 6 months we worried whether our food would run out before we got money to buy more. Never True 09/01/2021 Within the past 6 months the food we bought just didn't last and we didn't have enough money to get more. Never True Residential Stability Answer Date Recor ded What is your housing situation today? I have nato bell 09/01/2021 How many times have you move d in the past 12 months? Zero (I did not move) 09/01/2021 Paying for Meds Answer Date Recorded Do you have trouble paying for medicines? No 09/01/2021 Paying Utility Bills Answer Date Record ed Do you have trouble paying your heating or elect ricity bill? Yes 09/01/2021 Transportation Answer Date Recorded Has the lack of transportati on kept you from medical appointments or from getting medications? No 09/01/2021 Unemployment Answer Date Recorded Are you currently unemployed or working on a part-time or temporary basis, and looking for work? No 09/01/2021 Digital Access Answer Date Recorded No 10/20/2022 No 10/20/2022 No 10/20/2022 Reliable internet access at home? Not on file 10/20/2022 Device with a working camera? Not on file Comments Unknown Sex and Gender Information Value Date Recorded Sex Assigned at Female 07/01/2024 9:29 AM EST Legal Sex Female 9:12 AM EST Gender Identity Female 07/01/2024 9:29 AM EST Sexual Orientation Not on file documented as of this encounter Plan of Treatment Upcoming Encounters Date Type Department Care Team ([facility] st Contact Info) Description 06/09/2025 10:00 AM EST Office Visit [facility] Urology [address] [facility] [address] [place] [phone] Karolina Greco MD [address] [place] [phone] [email or web address] documented as of this encounter Visit Diagnoses Not on filedocumented in this encounter Care Teams International Flight Attendant Relationship Specialty Start Date End Date Lu Gomes MD [address] [place] [address] PCP - General Unknown Provider Specialty 03/29/22 Katrin Vivas MD [address] [place] [address] General Surgery 07/13/21 03/29/23 Cyndee Young MD, MPH [address] [place] [phone] [email or web address] 07/13/21 Rashida Weber MD [address] [place] [address] [email or web address] Surgeon Urology 07/21/21 Oswald Souza MD [address] [place] [phone] [email or web address] Internal Medicine 10/21/21 Katrin Mcgrath EPIDEMIOLOGIST [address] [place] [address] [place] [address] [email or web address] Medical Oncology 03/08/22 Mary Ann Aiken MD [address] [place] [address] Pulmonary Disease 10/16/[address], [facility] [address] [place] [address] [email or web address] Medical Oncology 02/19/23 Reed Barnett DMD [address] [place] [address] 03/30/23 Pacheco Whatley MD [address] [place] [address] Cardiology 03/30/23 Ulices Santana MD [address] [place] [address] [email or web address] Psychiatrist Psychiatry 04/09/23 documented as of this encounter Additional Source Comments The information contained in this document represents components of the legal health record. It is not the complete legal health record.[facility]
--- OUTSIDE RECORDS SUMMARY | 2025-04-16 19:42 | XMS_ITS | Clinical Summary ---
Author Organization [facility] Address [address] [address] Phone Care Team Providers Care Inspecting Engineer Name Role Phone Cyndee Young MD, MPH Unavailable [phone] Rashida Weber MD Unavailable [phone] Oswald Souza MD Unavailable DigeroniKatrin gomez W NANNY/HOUSEHOLD MANAGER Unavailable [phone] Lu Gomes MD Primary Care Prov ider Mary Ann Aiken MD Unavailable Sarina Cr RAIL SWITCH OPERATOR Unavailable Reed Barnett DMD Unavailable [phone] Pacheco Whatley MD Unavailable [phone] Ulices Santana MD Unavailable Allergies Active Allergy Reactions Criticality Noted Date Comments Adhesive 08/19/2021 Penicillins Hives 07/15/2021 Sulfa (Sulfonamide Antibiotics) Hives 06/28 Hydrocodone-Acetaminophen Rash Low 08/19/2021 Medications LORazepam (ATIVAN) 0.5 MG tablet Take 0.5 mg by mouth daily as needed. 2 Active aspirin-acetami nophen-caffeine (EXCEDRIN MIGRAINE) 250-250-65 mg per tablet Take 1 tablet by mouth every 6 (six) hours as needed for pain (specific location in comments). Active naproxen sodium (ALEVE) 220 MG tablet Take 220 mg by mouth every 12 (twelve) hours as needed for pain (specific location in comments). Active albuterol 90 mcg/actuation inhaler Inhale 2 puffs into the lungs every 6 (six) hours as needed for wheezing or shortness of breath/dyspnea . Active valACYclovir (VALTREX) 500 MG tablet Take 500 mg by mouth 2 (two) times a day as needed. 2 Active letrozole (FEMARA) 2.5 mg tabletIndicatio ns:Invasive lobular carcinoma of breast in female Take 1 tablet (2.5 mg total) by mouth daily. 90 tablet 3 3 Active rosuvastatin (CRESTOR) 5 MG tablet Take 1 tablet by mouth every morning. 3 Active ELIQUIS 2.5 mg Take 1 tablet by mouth 2 (two) times a day. 3 Active magnesium-alum- simeth(MAALOX)- diphenhydramine -lidocaine (MIRACLE MOUTHWASH) oral/mucosal solution 1:1:1 Swish and spit 5-10 mL every 4 (four) hours as needed. 15 minutes before meals. 240 mL 2 3 Active b complex vitamins capsule Take 1 capsule by mouth daily. Active palbociclib (IBRANCE) 100 mg tabletIndicatio ns:Invasive lobular carcinoma of breast in female Take 1 tablet (100 mg total) by mouth daily. Take one pill daily for 21 days followed by seven day rest then repeat. 21 tablet 11 4 Active FLUoxetine (PROZAC) 10 MG capsule Take 1 capsule (10 mg total) by mouth daily. 90 capsule 1 5 Active Active Problems Patient Care Coordination No te Formatting of this note migh t be different from the original. Pt is VERY anxious with needles and port access. Prefers to recline in chair. She has specific countdown routine for port access. She reports she is sensitive to adhesives, no specifics given. Gauze and paper tape dsg used over steri strips to stabilize port. Problem Noted Date Diagnosed Date Acute deep vein thrombosis (DVT) of right perone al vein 11/25/2021 Invasive lobular carcinoma of breast in female 0 07/13/2021 Encounters Date Type Department Care Team Description 03/13/2025 Ancillary Orders DF IMG OUTSIDE IMG [address] [place] [address] Cyndee Young MD, MPH 03/13/2025 Ancillary Orders DF IMG OUTSIDE IMG [address] [place] [address] Cyndee Young MD, MPH 03/04/2025 12:05 AM EDT Ancillary Procedure DF IMG OUTSIDE IMG [address] [place] [address] Cyndee Young MD, MPH 03/04/2025 Ancillary Procedure DF IMG OUTSIDE IMG [address] [place] [address] Cyndee Young MD, MPH from Last 3 Months Social History Tobacco Use Types Packs/Day Years Used Date Smoking Tobacco: Never Child or Family Care Answer Date Record ed Do you have problems with on e of the following making it difficult for you to work, study, or receive health care? No 09/01/2021 Education Answer Date Recorded Are you interested in more education? Not on shaka e 09/04/2023 Are you concerned about learning? Not on file 09/04/2023 No 09/04/2023 No 09/04/2023 Food Answer Date Recorded Within the past [...] your housing situation today? I have nato sing 09/01/2021 How many times have you move [...] with a working camera? Not on file Intimate Partner Violence Answer Date R ecorded Denied Basic Needs Not on file 04/08/2023 In the past 12 months have y ou been in a relationship with a person who hurts, threatens, or tries to control you? No 04/08/2023 Worried food would run out Not on file 04/08 In the past 12 months have y ou been in a relationship with a person who hurts, threatens, or tries to control you? No 04/08/2023 Comments Unknown Sex and Gender Information Value Date Recorded Sex Assigned at Female 07/01/2024 9:29 AM EST Legal Sex Female 9:12 AM EST Gender Identity Female 07/01/2024 9:29 AM EST Sexual Orientation Not on file Last Filed Vital Signs Vital Sign Reading Time Taken Comments Blood Pressure 122/78 03/30/2023 9:00 AM EDT Pulse 62 12/13/2022 10:23 AM EDT Temperature 36.7 C (98.1 F) 03/30/2023 9:00 AM EDT Respiratory Rate 18 03/30/2023 9:00 AM EDT Oxygen Saturation 100% 03/30/2023 9:00 AM EDT Inhaled Oxygen Concentration - - Weight 87.6 kg (193 lb 2 oz) 03/30/2023 9:00 AM EDT Height 167.3 cm (5' 5.87 ) 12/13/2022 10:23 AM E DT dfci Body Mass Index 31.3 12/13/2022 10:23 AM EDT Plan of Treatment Upcoming Encounters Date Type Department Care Team ([facility] st Contact Info) Description 06/09/2025 10:00 AM EST Office Visit [facility] Urology [facility] [address] [place] [address] Karolina Greco MD [address] [place] [address] [email or web address] Health Maintenance Due Date Last Done Comments HEPATITIS C SCREENING 1980 HIV ONE-TIME SCREENING (18-65 YEARS) 1980 SMOKING STATUS SCREENING (Once After 26 Yrs) 1988 COLOGUARD 2007 COLONOSCOPY 2007 COLORECTAL CANCER SCREENING 2007 FIT TEST 2007 FOBT 2007 SIGMOIDOSCOPY 2007 VIRTUAL COLONOSCOPY 2007 PNEUMOCOCCAL VACCINES (50+ years) (2 of 2 - PCV) 01/23/2023 01/23/2022 CREATININE LEVEL 03/26/2024 03/26/2023, , 08/07/2022, Additional history exists DEPRESSION SCREENING 04/08/2024 04/08/2023, 04/08/20 23 COVID-19 VACCINE ( season) 2025 11/09/2021, 06/08/2021, 07/20/2020, Additional history exists PAP SMEAR 05/05/2025 05/05/2022 SCREENING FOR DIABETES 03/26/2026 03/26/2023 MAMMOGRAM 03/04/2027 03/04/2025, 1012/2024, 03/04/2025, Additional history exists LIPID PANEL 05/06/2029 05/06/2024, 12/27, 01/16/2022, Additional history exists Adult Td,Tdap Booster 09/21/2030 09/21/2020, 002 RSV VACCINE (1 - 1-dose 75+ series) 2037 HEPATITIS A VACCINES Aged Out 07/22/2012, 06/28/19 10 No longer eligible based on patient's age to complete this topic ZOSTER VACCINES Completed 12/31/2023, 09/26/2023 INFLUENZA VACCINE Completed 03/09/2025, , 02/06/2023, Additional history exists HIB VACCINES Aged Out No longer eligi ble based on patient's age to complete this topic MENINGOCOCCAL VACCINES (ACWY) Aged Out No longer eligible based on patient's age to complete this topic MENINGOCOCCAL VACCINES (B) Aged Out N o longer eligible based on patient's age to complete this topic Medical Devices Not on file Procedures Procedure Name Priority Date/Time Associated Diagnosis Comments BI MAMMOGRAM OUTSIDE (NO INTERPRETATION) Routine 03/04/2025 12:05 AM EDT BI US BREAST OUTSIDE (NO INTERPRETATION) Routine 03/04/2025 12:00 AM EDT OUTSIDE IMAGING 03/04/2025 COMPREHENSIVE METABOLIC PANEL (CMP) Routine 03/26/2023 8:00 AM EDT Postmastectomy lymphangiosarcoma syndrome, unspecified laterality LIPID PANEL Routine 09/15/2021 10:03 AM EDT Invasive lobular carcinoma of breast in female from Last 3 Months or Most Recently Relevant to Health Maintenance Results * Mammogram Outside (No Interpretation) (03/04/2025 12:05 AM EDT) Other Narrative [facility] - 03/13/2025 12:35 PM EDT This study is for PACS storage only and not for interpretation. Cyndee Young MD, MPH IMG OUTSIDE IMAGING W/OUT I NTERPRETATION Final Result Performing Organization Address [facility] de Phone Number [email or web address] * Outside Imaging Report Only (03/04/2025) us Scanning Interface Provider IMG XR CHEST Nichole l Result * US Breast Outside (No Interpretation) (03/04/2025 12:00 AM EDT) Other Narrative [facility] - 03/13/2025 12:34 PM EDT This study is for PACS storage only and not for interpretation. Cyndee Young MD, MPH IMG OUTSIDE IMAGING W/OUT I NTERPRETATION Final Result Performing Organization Address [facility] Co de Phone Number [facility] * Comprehensive metabolic panel (03/26/2023 8:00 AM EDT) SODIUM 138 133 - 146 mmol/L [facility] POTASSIUM 4.0 3.3 - 5.1 mmol/L [facility] CHLORIDE 101 96 - 108 mmol/L [facility] CO2 26 21 - 35 mmol/L [facility] BUN 19 6 - 19 mg/dL [facility] CREATININE 1.00 0.5 - 1.5 mg/dL [facility] GLUCOSE 74 70 - 99 mg/dL [facility] ALBUMIN 4.3 3.9 - 4.8 g/dL [facility] TOTAL PROTEIN 7.7 6.5 - 8.0 g/dL [facility] CALCIUM 9.8 8.4 - 10.3 mg/dL [facility] ALKALINE PHOSPHATASE 48 39 - 117 U/L [facility] TOTAL BILIRUBIN 0.6 0.0 - 1.2 mg/dL [facility] AST 29 0 - 37 U/L [facility] ALT 19 0 - 40 U/L [facility] GLOBULIN 3.4 1 - 4.8 g/dL [facility] EGFR 64 >59 mL/min/1.7 3m2 [facility] Comment:Estimated glomerular filtration rate calculated using the CKD-EPI refit equation. ANION GAP 15 10 - 20 mmol/L [facility] Blood 03/26/2023 8:00 AM EDT 03/26/2023 8:03 AM EDT Oswald Souza MD LAB BLOOD BKR ORDERABLES Final Result [facility] [address] [place] [address] * (ABNORMAL) Lipid panel (09/15/2021 10:03 AM EDT) HDL 61 mg/dL [facility] Comment: Interpretation <40 mg/dL: Low HDL cholesterol (major risk factor for CHD) Greater than or equal to 60 mg/dL: High HDL cholesterol ( negative risk factor for CHD) HDL - cholesterol is affected by a number of factors, e.g. smoking, excerise, hormones, sex and age. CHOLESTEROL 158 0 - 240 mg/dL [facility] TRIGLYCERIDES 76 30 - 160 mg/dL [facility] LDL 82 50 - 129 mg/dL [facility] Comment: LDL levels in terms of risk for coronary heart disease: <100 mg/dL: Optimal 100-129 mg/dL: Near or above optimal 130-159 mg/dL: Borderline high 160-189 mg/dL: High >190 mg/dL: Very High CARDIAC RISK RATIO 2.6(L) 3.3 - 4.4 [facility] Blood 09/15/2021 10:0 3 AM EDT 09/15/2021 10:07 AM EDT us Cyndee Young MD, MPH LAB BLOOD BKR ORDERABLES Fi nal Result [facility] [address] [place] [address] from Last 3 Months or Most Recently Relevant to Health Maintenance [place] [address] [place] [address] MEDICARE PART A & B [place] & [place] & [place]IC[place] & [place] PART A & B [employer] [facility] MEDICARE PART A & B Care Teams Inspecting Engineer Relationship Specialty Start Date End Date Lu Gomes MD [address] [place] [address] PCP - General Unknown Provider Specialty 03/29/22 Cyndee Young MD, MPH [address] [place] [address] [email or web address] Medical Oncology 07/13/21 Rashida Weber MD [address] [place] [address] Surgeon Urology 07/21/21 Oswald Souza MD [address] [place] [address] [email or web address] Internal Medicine 10/21/21 Katrin Mcgrath CNP [address] [place] [address] [email or web address] Nurse Practitioner Medical Oncology 03/08/22 Mary Ann Aiken MD [address] [place] [address] Pulmonary Disease 10/16/22 Sarina Cr [address] [address] [email or web address] Strand And Binder Controller Medical Oncology 02/19/23 Reed Barnett DMD [address] [place] [address] 03/30/23 Pacheco Whatley MD [address] [place] [address] Cardiology 03/30/23 Ulices Santana MD [facility] [address] [place] [address] [email or web address] Psychiatrist Psychiatry 04/09/23 Additional Source Comments The information contained in this document represents components of the legal health record. It is not the complete legal health record.[facility]
--- OUTSIDE RECORDS SUMMARY | 2025-04-16 19:42 | XMS_ITS | Encounter Summary ---
Author Organization [facility] Address [address] [address] Phone Care Team Providers Care Senior Cyber Security Analyst Name Role Phone OrtegaKatrin MD Unavailable [phone] Cyndee Young MD, MPH Unavailable [phone] Rashida Weber MD Unavailable [phone] Osawld Souza MD Unavailable [phone] Katrin Mcgrath BULLET ASSEMBLY PRESS OPERATOR Unavailable [phone] Lu Gomes MD Primary Care Prov ider Mary Ann Aiken MD Unavailable Sarina Cr WOUND NURSE Unavailable [phone] Reed Barnett DMD Unavailable [phone] Pacheco Whatley MD Unavailable [phone] Ulices Santana MD Unavailable Encounter Details Date Type Department Care Team (Late st Contact Info) Description 12/13/2022 Ancillary Orders Outside Imaging Cyndee Young MD, MPH [address] [place] [address] [email or web address] Social History Tobacco Use Types Packs/Day Years [...] high school, GED, job training, learning the [place] language, technical skills, or developing parenting skills)? [...] Care Team (Late st Contact Info) Description 06/09/2025 10:00 AM EST Office Visit [facility] [address] [place] [address] Karolina Greco MD [address] [place] [address] [email or web address] documented as of this encounter Results * CT Face Outside (No Interpretation) (06/14/2022 12:00 AM EST) Other Narrative [facility] - 12/13/2022 10:24 AM EDT This study is for PACS storage only and not for interpretation. us Cyndee Young MD, MPH IMG OUTSIDE IMAGING W/OUT I NTERPRETATION Final Result [facility] documented in this encounter Visit Diagnoses Not on filedocumented in this encounter Care Teams Senior Cyber Security Analyst Relationship Specialty Start Date End Date Lu Gomes MD [address] [place] [address] PCP - General Unknown Provider Specialty 03/29/22 Katrin Vivas MD [address] [place] [address] General Surgery 07/13/21 03/29/23 Cyndee Young MD, MPH [address] [place] [address] [email or web address] Medical Oncology 07/13/21 Rashida Weber MD [address] [place] [address] Surgeon Urology 07/21/21 Oswald Souza MD [address] [place] [address] [email or web address] Medicine 10/21/21 Katrin Mcgrath CNP [address] [place] [address] [email or web address] Nurse Practitioner Medical Oncology 03/08/22 Mary Ann Aiken MD [address] [place] [address] Pulmonary Disease 10/16/22 Sarina Cr, [address] [address] [email or web address] Meat Stuffer Medical Oncology 02/19/23 Reed Barnett DMD [address] [facility] [address] [place] [address] 03/30/23 Pacheco Whatley MD [address] [place] [address] Cardiology 03/30/23 Ulices Santana MD [address] [place] [address] [place] [address] [email or web address] Psychiatrist Psychiatry 04/09/23 documented as of this encounter Additional Source Comments The information contained in this document represents components of the legal health record. It is not the complete legal health record.[facility]
--- OUTSIDE RECORDS SUMMARY | 2025-04-16 19:42 | XMS_ITS | Encounter Summary ---
Author Organization [facility] Address [address] [address] Phone Care Team Providers Care Gasser Machine Operator Name Role Phone Cyndee Young MD, MPH Unavailable [phone] Rashida Weber MD Unavailable [phone] Oswald Souza MD Unavailable [phone] Katrin Mcgrath SHUTTLER CAR Unavailable [phone] Lu Gomes MD Primary Care Prov ider Mary Ann Aiken MD Unavailable [phone] Sarina Cr MECHANICAL COMMISSIONING ENGINEER Unavailable [phone] Reed Barnett DMD Unavailable [phone] Pacheco Whatley MD Unavailable [phone] Ulices Santana MD Unavailable [phone] Reason for Visit * Reason Comments Medication Refill Encounter Details Date Type Department Care Team (Late st Contact Info) Description 06/21/2023 [facility]ill [facility], [facility]ida [facility], [facility] [address] [facility] 4th [place] [address] Cyndee Young MD, MPH [address] [place] [address] [email or web address] Medication Refill Social History Tobacco Use Types Packs/Day Years [...] high school, GED, job training, learning the Niuean language, technical skills, or developing parenting skills)? [...] Description 06/09/2025 10:00 AM EST Office Visit [facility] Urology [address] [facility] [address] [place] [address] Karolina Greco MD [address] [place] [address] [email or web address] documented as of this encounter Visit Diagnoses Diagnosis Invasive lobular carcinoma of breast in female documented in this encounter Additional Health Concerns Assessment Noted Time PHQ-9 Depression Total Score: 9 04/08/20 23 9:06 PM EST PHQ-2 Depression Total Score: 3 04/08/20 23 9:06 PM EST documented as of this encounter Care Teams Gasser Machine Operator Relationship Specialty Start Date End Date Lu Gomes MD [address] [place] [address] PCP - General Unknown Provider Specialty 03/29/22 Cyndee Young MD, MPH [address] [place] [address] [email or web address] Medical Oncology 07/13/21 Rashida Weber MD [address] [place] [address] Surgeon Urology 07/21/21 Oswald Souza MD [address] [place] [address] [email or web address] Medicine 10/21/21 Katrin Mcgrath CNP [address] [place] [address] [email or web address] Nurse Practitioner Medical Oncology 03/08/22 Mary Ann Aiken MD [address] [place] [address] Pulmonary Disease 10/16/22 Sarina Cr, [address] [address] [email or web address] 234 beds at [facility] Liberal Arts And Humanities Chair Medical Oncology 02/19/23 Reed Barnett DMD [address] [place] [address] 03/30/23 Pacheco Whatley MD [address] [place] [address] Cardiology 03/30/23 Ulices Santana MD 60 [facility] 4[address] [place] [address] [email or web address] Psychiatrist Psychiatry 04/09/23 documented as of this encounter Additional Source Comments The information contained in this document represents components of the legal health record. It is not the complete legal health record.[facility]
--- OUTSIDE RECORDS SUMMARY | 2025-04-16 19:42 | XMS_ITS | Encounter Summary ---
Author Organization [facility] Address [address] [facility] [address] [place] [address] Phone Care Team Providers Care Wood Furniture Assembler Name Role Phone Katrin Vivas MD Unavailable [phone] Cyndee Young MD, MPH Unavailable [phone] Rashida Weber MD Unavailable [phone] Oswald Souza MD Unavailable Katrin Mcgrath RISK ADVISOR Unavailable [phone] Lu Gomes MD Primary Care Prov ider Mary Ann Aiken MD Unavailable [phone] Sarina rC METAL ENGINEERING PROCESS WORKER Unavailable [phone] Reed Barnett DMD Unavailable [phone] Pacheco Whatley MD Unavailable [phone] Ulices Sanatna MD Unavailable [phone] Encounter Details Date Type Department Care Team (Late st Contact Info) Description 11/07/2022 Procedure Pass [facility], Ct Scan - [address] [address] Social History Tobacco Use Types [...] high school, GED, job training, learning the Honduran language, technical skills, or developing parenting skills)? [...] Upcoming Encounters Date Type Department Care Team ([facility] st Contact Info) Description 06/09/2025 10:00 AM EST Office Visit [facility] Urology 4S [address] [facility] [address] [place] [address] Karolina Greco MD [address] [place] [address] [email or web address] documented as of this encounter Visit Diagnoses Not on filedocumented in this encounter Care Teams Wood Furniture Assembler Relationship Specialty Start Date End Date Lu Gomes MD [address] [place] [address] PCP - General Unknown Provider Specialty 03/29/22 Katrin Vivas MD [address] [place] [address] General Surgery 07/13/21 03/29/23 Cyndee Young MD, MPH [address] [place] [address] [email or web address] Medical Oncology 07/13/21 Rashida Weber MD [address] [place] [address] [email or web address] Surgeon Urology 07/21/21 Oswald Souza MD [address] [place] [address] [email or web address] Internal Medicine 10/21/21 Katrin Mcgrath RISK ADVISOR [address] [place] [address] [place] [address] [email or web address] Nurse Practitioner Medical Oncology 03/08/22 Mary Ann Aiken MD [address] [place] [address] Pulmonary Disease 10/16/22 Sarina Cr, [facility] [address] [place] [address] [email or web address] Wire Dropper Medical Oncology 02/19/23 Reed Barnett DMD [address] [place] [address] 03/30/23 Pacheco Whatley MD [address] [place] [address] Cardiology 03/30/23 Ulices Santana MD [address] [place] [address] [email or web address] Psychiatrist Psychiatry 04/09/23 documented as of this encounter Additional Source Comments The information contained in this document represents components of the legal health record. It is not the complete legal health record.[facility]
--- OUTSIDE RECORDS SUMMARY | 2025-04-16 19:42 | XMS_ITS | Encounter Summary ---
Author Organization [facility] Address [address] [facility] [address] [place] [address] Phone Care Team Providers Care Insole Taper Name Role Phone Katrin Vivas MD Unavailable [phone] Cyndee Young MD, MPH Unavailable [phone] Rashida Weber MD Unavailable [phone] Oswald Souza MD Unavailable Katrin Mcgrath CIVIL ENGINEERING DESIGN DRAFTSPERSON Unavailable [phone] Lu Gomes MD Primary Care Prov ider Mary Ann Aiken MD Unavailable Sarina Cr FINANCIAL MANAGER Unavailable [phone] Reed Barnett DMD Unavailable [phone] Pacheco Whatley MD Unavailable [phone] Ulices Santana MD Unavailable Encounter Details Date Type Department Care Team (Late st Contact Info) Description 12/13/2022 Procedure Pass [facility], Ct Scan - [address] [address] Social History Tobacco Use Types [...] high school, GED, job training, learning the Paraguayan language, technical skills, or developing parenting skills)? [...] Upcoming Encounters Date Type Department Care Team ([facility] st Contact Info) Description 06/09/2025 10:00 AM EST Office Visit [facility] Urology 4S [address] [facility] [address] [place] [address] Karolina Greco MD [address] [place] [address] [email or web address] documented as of this encounter Visit Diagnoses Not on filedocumented in this encounter Care Teams Insole Taper Relationship Specialty Start Date End Date Lu Gomes MD [address] [place] [address] PCP - General Unknown Provider Specialty 03/29/22 Katrin Vivas MD [address] [place] [address] General Surgery 07/13/21 03/29/23 Cyndee Young MD, MPH [address] [place] [address] [email or web address] Medical Oncology 07/13/21 Rashida Weber MD [address] [place] [address] [email or web address] Surgeon Urology 07/21/21 Oswald Souza MD [address] [place] [address] [email or web address] Internal Medicine 10/21/21 Katrin Mcgrath CIVIL ENGINEERING DESIGN DRAFTSPERSON [address] [place] [address] [place] [address] Sharee@[email or web address] Nurse Practitioner Medical Oncology 03/08/22 Mary Ann Aiken MD [address] [place] [address] Pulmonary Disease 10/16/22 Sarina Cr, [facility] [address] [place] [address] [email or web address] Contracts Law Professor Medical Oncology 02/19/23 Reed Barnett DMD [address] [place] [address] 03/30/23 Pacheco Whatley MD [address] [place] [address] Cardiology 03/30/23 Ulices Santana MD [address] [place] [address] [email or web address] Psychiatrist Psychiatry 04/09/23 documented as of this encounter Additional Source Comments The information contained in this document represents components of the legal health record. It is not the complete legal health record.[facility]
--- OUTSIDE RECORDS SUMMARY | 2025-04-16 19:42 | XMS_ITS | Encounter Summary ---
Author Organization [facility] Address [address] [address] Phone Care Team Providers Care Rn Medicare Name Role Phone Cyndee Young MD, MPH Unavailable [phone] Rashida Weber MD Unavailable [phone] Oswald Souza MD Unavailable Katrin Mcgrath CLINICAL THERAPIST Unavailable [phone] Lu Gomes MD Primary Care Prov ider Mary Ann Aiken MD Unavailable [phone] Sarina Cr AGRICULTURAL TECHNICAL OFFICER Unavailable [phone] Reed Barnett DMD Unavailable [phone] Pacheco Whatley MD Unavailable [phone] Ulices Santana MD Unavailable [phone] Encounter Details Date Type Department Care Team (Latest Contact Info) Description 09/04/2023 Transcribe Orders Virtual Department 30 [place] [address] Oswald Souza MD [address] [place] [address] Joel@ [email or web address] Malignant neoplasm of female breast, unspecified estrogen receptor status, unspecified laterality, unspecified site of breast (Primary Dx) Social History Tobacco Use Types Packs/Day Years [...] Description 06/09/2025 10:00 AM EST Office Visit [facility] Urology 4S [address] [place] [address] Karolina Greco MD [address] [place] [address] TRISTON@[email or web address] documented as of this encounter Visit Diagnoses Diagnosis Malignant neoplasm of female breast, unspecified estrogen receptor status, unspecified laterality, unspecified site of breast- Primary documented in this encounter Additional Health Concerns Assessment Noted Time PHQ-9 Depression Total Score: 9 04/08/20 23 9:06 PM EST PHQ-2 Depression Total Score: 3 04/08/20 23 9:06 PM EST documented as of this encounter Care Teams Rn Medicare Relationship Specialty Start Date End Date Lu Gomes MD [address] [place] [address] PCP - General Unknown Provider Specialty 03/29/22 Cyndee Young MD, MPH [address] [place] [address] [email or web address] Medical Oncology 07/13/21 Rashida Weber MD [address] [place] [address] Surgeon Urology 07/21/21 Oswald Souza MD [address] [place] [address] [email or web address] Internal Medicine 10/21/21 Katrin Mcgrath CNP [address] [place] [address] [email or web address] Nurse Practitioner Medical Oncology 03/08/22 Mary Ann Aiken MD [address] [place] [address] Pulmonary Disease 10/16/22 Sarina Cr, [facility] [address] [place] [address] [email or web address] Polarity Tester Medical Oncology 02/19/23 Reed Barnett DMD [address] [place] [address] 03/30/23 Pacheco Whatley MD [address] [place] [address] Cardiology 03/30/23 Ulices Santana MD [address] [place] [address] [place] [address] [email or web address] Psychiatrist Psychiatry 04/09/23 documented as of this encounter Additional Source Comments The information contained in this document represents components of the legal health record. It is not the complete legal health record.[facility]
--- OUTSIDE RECORDS SUMMARY | 2025-04-16 19:42 | XMS_ITS | Encounter Summary ---
Author Organization [facility] Address [address] [facility] [address] [place] [address] Phone Care Team Providers Care Manager Fast Food Name Role Phone Katrin Vivas MD Unavailable [phone] Cyndee Young MD, MPH Unavailable [phone] Rashida Weber MD Unavailable [phone] Oswald Souza MD Unavailable Katrin Mcgrath STREAM CONTROL OFFICER Unavailable [phone] Lu Gomes MD Primary Care Prov ider Mary Ann Aiken MD Unavailable Sarina Cr PHD INTERN Unavailable [phone] Reed Barnett DMD Unavailable [phone] Pacheco Whatley MD Unavailable [phone] Ulices Santana MD Unavailable [phone] Encounter Details Date Type Department Care Team (Late st Contact Info) Description 03/29/2022 Procedure Pass [facility], Ct Scan - [address] [address] Social History Tobacco Use Types [...] high school, GED, job training, learning the Solomon Islander language, technical skills, or developing parenting skills)? [...] basis, and looking for work? No 09/01/2021 Comments Unknown Sex and Gender Information Value Date Recorded Sex Assigned at Female 07/01/2024 9:29 AM EST Legal Sex Female 9:12 AM EST Gender Identity Female 07/01/2024 9:29 AM EST Sexual Orientation Not on file documented as of this encounter Plan of Treatment Upcoming Encounters Date Type Department Care Team (Late st Contact Info) Description 06/09/2025 10:00 AM EST Office Visit [facility] Urology [address] [facility] [address] [place] [address] Karolina Greco MD [address] [place] [address] [email or web address] documented as of this encounter Visit Diagnoses Not on filedocumented in this encounter Care Teams Manager Fast Food Relationship Specialty Start Date End Date Lu Gomes MD [address] [place] [address] PCP - General Unknown Provider Specialty 03/29/22 Katrin Vivas MD [address] [place] [address] General Surgery 07/13/21 03/29/23 Cyndee Young MD, MPH [address] [place] [address] [email or web address] Medical Oncology 07/13/21 Rashida Weber MD [address] [place] [address] [email or web address] [email or web address] Surgeon Urology 07/21/21 Oswald Souza MD [address] [place] [address] [email or web address] Internal Medicine 10/21/21 Katrin Mcgrath CNP [address] [place] [address] [place] [address] Sharee@[email or web address] Nurse Practitioner Medical Oncology 03/08/22 Mary Ann Aiken MD [address] [place] [address] Pulmonary Disease 10/16/22 Sarina rC, [address] [address] [email or web address] Capsule Filling Machine Operator Medical Oncology 02/19/23 Reed Barnett DMD [address] [place] [address] 03/30/23 Pacheco Whatley MD [address] [place] [address] Cardiology 03/30/23 Ulices Santana MD [address] [place] [address] [email or web address] Psychiatrist Psychiatry 04/09/23 documented as of this encounter Additional Source Comments The information contained in this document represents components of the legal health record. It is not the complete legal health record.[facility]
--- OUTSIDE RECORDS SUMMARY | 2025-04-16 19:42 | XMS_ITS | Encounter Summary ---
Author Organization [facility] Address [address] [address] Phone Care Team Providers Care Fruit Dumper Name Role Phone Juliánebenezervaldemar Katrin Pulido MD Unavailable [phone] Cyndee Young MD, MPH Unavailable [phone] Rashida Weber MD Unavailable [phone] Oswald Souza MD Unavailable [phone] Katrin Mcgrath HEARING OFFICER Unavailable [phone] Lu Gomes MD Primary Care Prov ider Mary Ann Aiken MD Unavailable [phone] Sarina Cr PHYSICAL METEOROLOGIST Unavailable [phone] Reed Barnett DMD Unavailable [phone] Pacheco Whatley MD Unavailable [phone] Ulices Santana MD Unavailable [phone] Encounter Details Date Type Department Care Team (Late st Contact Info) Description 12/13/2022 Ancillary Orders [facility], Rashida [facility], [facility] [place] [address] [facility], 9th [place] [address] Cyndee Young MD, MPH [address] [place] [phone] [email or web address] Social History Tobacco Use Types Packs/Day Years [...] high school, GED, job training, learning the [place] language, technical skills, or developing parenting skills)? [...] Description 06/09/2025 10:00 AM EST Office Visit [facility] Urology [address]S [address] [place] [address] Karolina Greco MD [address] [place] [address] [email or web address] documented as of this encounter Visit Diagnoses Not on filedocumented in this encounter Care Teams Fruit Dumper Relationship Specialty Start Date End Date Lu Gomes MD [address] [place] [address] PCP - General Unknown Provider Specialty 03/29/22 Katrin Vivas MD [address] [place] [address] General Surgery 07/13/21 03/29/23 Cyndee Young MD, MPH [address] [place] [address] [email or web address] .[facility] Medical Oncology 07/13/21 Rashida Weber MD [address] [place] [address] [email or web address] Surgeon Urology 07/21/21 Oswald Souza MD [address] [place] [address] [email or web address] Internal Medicine 10/21/21 Katrin Mcgrath, HEARING OFFICER [address] [place] [address] [place] [address] Sharee@[facility] Nurse Practitioner Medical Oncology 03/08/22 Mary Ann Aiken MD [address] [place] [address] Pulmonary Disease 10/16/22 Sarina Cr, [facility] 35 [place] [address] Kari@[facility] Director Of Patient Care Medical Oncology 02/19/23 Reed Barnett DMD [address] [address] 03/30/23 Pacheco Whatley MD [address] [place] [address] Cardiology 03/30/23 Ulices Santana MD [address] [place] [address] [email or web address] Psychiatrist Psychiatry 04/09/23 documented as of this encounter Additional Source Comments The information contained in this document represents components of the legal health record. It is not the complete legal health record.[facility]
--- OUTSIDE RECORDS SUMMARY | 2025-04-16 19:42 | XMS_ITS | Encounter Summary ---
Author Organization [facility] Address 399 [facility] [address] [place] [address] Phone Care Team Providers Care Shrimp Picker Name Role Phone Katrin Vivas MD Unavailable [phone] Cyndee Young MD, MPH Unavailable [phone] Rsahida Weber MD Unavailable [phone] Oswald Souza MD Unavailable Katrin Mcgrath SUPERVISOR RESPIRATORY Unavailable [phone] Lu Gomes MD Primary Care Prov ider Mary Ann Aiken MD Unavailable [phone] Sarina Cr CARBON CAPTURE POWER PLANT MANAGER Unavailable [phone] Reed Barnett DMD Unavailable [phone] Pacheco Whatley MD Unavailable [phone] Ulices Santana MD Unavailable Encounter Details Date Type Department Care Team (Late st Contact Info) Description 03/29/2022 Procedure Pass [facility], Ct Scan - [address] [address] Social History Tobacco Use Types [...] high school, GED, job training, learning the Greenlandic language, technical skills, or developing parenting skills)? [...] Description 06/09/2025 10:00 AM EST Office Visit [facility] Urology 1153 [facility] [address] [place] [address] Karolina Greco MD 45 [place] [address] [email or web address] documented as of this encounter Visit Diagnoses Not on filedocumented in this encounter Care Teams Shrimp Picker Relationship Specialty Start Date End Date Lu Gomes MD [address] [place] [address] PCP - General Unknown Provider Specialty 03/29/22 Katrin Vivas MD [address] [place] [address] General Surgery 07/13/21 03/29/23 Cyndee Young MD, MPH [address] [place] [address] [email or web address] Medical Oncology 07/13/21 Rashida Weber MD [address] [place] [address] [email or web address] Surgeon Urology 07/21/21 Oswald Souza MD [address] [place] [address] [email or web address] Medicine 10/21/21 Katrin Mcgrath CNP [address] [place] [address] [place] [address] Sharee@[email or web address] Nurse Practitioner Medical Oncology 03/08/22 Mary Ann Aiken MD [address] [place] [address] Pulmonary Disease 10/16/22 Sarina Cr, [address] [address] [email or web address]@[email or web address] Final Finisher Medical Oncology 02/19/23 Reed Barnett DMD [address] [place] [address] 03/30/23 Pacheco Whatley MD [address] [place] [address] Cardiology 03/30/23 Ulices Santana MD [address] [place] [address] [email or web address]@[email or web address] Psychiatrist Psychiatry 04/09/23 documented as of this encounter Additional Source Comments The information contained in this document represents components of the legal health record. It is not the complete legal health record.[facility]
--- OUTSIDE RECORDS SUMMARY | 2025-04-16 19:42 | XMS_ITS | Encounter Summary ---
Author Organization [facility] Address [address] [address] Phone Care Team Providers Care Stretch Box Tender Name Role Phone JuliánebeenzerKatrin aldrich MD Unavailable [phone] Cyndee Young MD, MPH Unavailable [phone] Rashida Weber MD Unavailable [phone] Oswald Souza MD Unavailable Katrin Mcgrath FACILITY MAINTENANCE TECHNICIAN Unavailable [phone] Lu Gomes MD Primary Care Prov ider Mary Ann Aiken MD Unavailable Sarina Cr ONLINE MARKETING STRATEGIST Unavailable [phone] Reed Barnett DMD Unavailable [phone] Pacheco Whatley MD Unavailable [phone] Ulices Santana MD Unavailable [phone] Encounter Details Date Type Department Care Team (Late st Contact Info) Description 03/21/2023 Transcribe Orders [facility] Specimen Processing 30 [place], [place] [id number] Unknown, Unknown, Social History Tobacco Use Types Packs/Day Years [...] high school, GED, job training, learning the Rwandan language, technical skills, or developing parenting skills)? [...] Upcoming Encounters Date Type Department Care Team ([facility] st Contact Info) Description 06/09/2025 10:00 AM EST Office [facility] Urology 4S 1153 [facility] [address] [place] [address] Karolina Greco MD [address] [place] [address] TRISTON@[email or web address] documented as of this encounter Visit Diagnoses Not on filedocumented in this encounter Care Teams Stretch Box Tender Relationship Specialty Start Date End Date Lu Gomes MD [address] [place] [address] PCP - General Unknown Provider Specialty 03/29/22 Katrin Vivas MD [address] [place] [address] General Surgery 07/13/21 03/29/23 Cyndee Young MD, MPH [address] [place] [address] [email or web address] Medical Oncology 07/13/21 Rashida Weber MD [address] [place] [address] [email or web address] Surgeon Urology 07/21/21 Oswald Souza MD [address] [place] [address] [email or web address] Internal Medicine 10/21/21 Katrin Mcgrath FACILITY MAINTENANCE TECHNICIAN [address] [place] [address] [place] [address] Sharee@[email or web address] Nurse Practitioner Medical Oncology 03/08/22 Mary Ann Aiken MD [address] [place] [address] Pulmonary Disease 10/16/22 Sarina Cr, [facility] 35 [place] [address] [email or web address] Supervisor Pigment Making Medical Oncology 02/19/23 Reed Barnett DMD [address] [place] [address] 03/30/23 Pacheco Whatley MD [address] [place] [address] Cardiology 03/30/23 Ulices Santana MD [address] [place] [address] Geovanny@[email or web address] Psychiatrist Psychiatry 04/09/23 documented as of this encounter Additional Source Comments The information contained in this document represents components of the legal health record. It is not the complete legal health record.[facility]
--- OUTSIDE RECORDS SUMMARY | 2025-04-16 19:43 | XMS_ITS | Encounter Summary ---
Author Organization [facility] Address [address] [place] [address] Care Team Providers Care Office 365 Consultant Name Role Phone Lu Ibrahim MD Primary Care Prov ider Reason for Visit * Reason Onset Date Comments Hospital Follow-up 04/08/2025 Encounter Details Date Type Department Care Team ([facility] st Contact Info) Description 04/08/2025 Telephone Adult Medicine [address] [phone] Marie Maier MA Social History Tobacco Use Types Packs/Day Years [...] your loved ones. For example, child care director or elderly care for an older adult? [...] Date Record ed Physical Abuse Unrecognized value 04/05/2025 Verbal Abuse Unrecognized value 04/05/2025 Comments No Sex and Gender Information Value [...] documented in this encounter Progress Notes * Terrie Raygoza RN - 04/09/2025 8:26 AM EST [facility] TCM apt. Changed to 04/13. Pt. Aware and agrees * ANDREEA Camacho - 04/09/2025 7:50 AM EST Please call this patient and find out if she can come in at 10 am on 04/13/2025 with PCP this is a TCM appointment. * Vangie Desir RN - 04/08/2025 11:13 AM EST Call to pt. Spoke to pt , recently d/c , was admitted on Sunday am, R/o stroke or Brain mets, Labs showed up for pos lyme disease, left facial paralysis Hx of kidney problems Also stage 4 breast ca. Had mri Ct both with contrast,and labs Has f/u with Dr Avitia on 04/16/25 No new scripts given Pt concerned should she be on a med until seen Antibiotic or steriod, Please advise Hosp booked for 04/22/25 * Marie Maier MA - 04/08/2025 10:34 AM EST Hospital/ER follow up appointment needed Hospital patient was treated at: [facility] Was this only an ER visit or was the patient admitted to the hospital? Admitted to the hospital/kept overnight Date of visit if ER visit only: If patient was admitted what was the date of discharge? 04/07/25 Reason/diagnosis for visit or stay: possible stroke/drooling/numb tongue When was the patient told to follow up?1-2 days Was visit or stay related to an injury? If yes, what was the date of injury (DOI)? No If yes, was the injury due to: Not 3rd democrat related documented in this encounter Plan of Treatment Upcoming Encounters Date Type Department Care Team (Late st Contact Info) Description 04/17/2025 9:30 AM EST Appointment [facility] [address] [place] [phone] 04/22/2025 10:30 AM EST Office Visit Adult Medicine [address] [phone] Lu Ibrahim MD [address] [place] [address] 07/01/2025 8:30 AM EST Office Visit Adult Medicine [address] [phone] Lu Ibrahim MD [address] [place] [address] 08/27/2025 8:45 AM EDT Office Visit [facility] Hematology Oncology [address] [place] [phone] Oswald Souza MD [address] [place] [address] documented as of this encounter Visit Diagnoses Not on filedocumented in this encounter Additional Health Concerns Assessment Noted Time PHQ-9 Depression Total Score: 9 03/30/20 11:48 AM EST documented as of this encounter Care Teams Office 365 Consultant Relationship Specialty Start Date End Date Lu Ibrahim MD [address] [place] [phone] PCP - General Internal Medicine 04/02/25 documented as of this encounter
--- OUTSIDE RECORDS SUMMARY | 2025-04-16 19:43 | XMS_ITS | Clinical Summary ---
Author Organization [facility] Address [address] [place] [address] Care Team Providers Care Plant Assigner Name Role Phone Lu Gomes MD Primary Care Prov ider Allergies Active Allergy Reactions Criticality Noted Date Comments Penicillins Hives 12/28/2017 Sulfa Antibiotics Hives 12/28/2017 Medications Medication Sig Dispensed Refills Start Date End Date Status acetaminophen (TYLENOL EXTRA STRENGTH) 500 MG tablet Take 1 tablet (500 mg total) by mouth every 6 (six) hours as needed. 0 Active apixaban (ELIQUIS) 2.5 MG TABS tablet Take 1 tablet (2.5 mg total) by mouth every 12 (twelve) hours. 0 Active Calcium Carb-Cholecalciferol (CALCIUM 600+D HIGH POTENCY PO) Take by mouth 3 (three) times a day. 0 Active Probiotic Product (PROBIOTIC DAILY PO) Take by mouth. 0 Active diphenhydrAMINE-zinc acetate (BENADRYL) cream Apply topically 3 (three) times a day as needed for itching. 0 Active Albuterol Sulfate 108 (90 Base) MCG/ACT AEPB Inhale 1 puff into the lungs every 4 (four) hours. 0 Active Multiple Vitamins-Minerals (CENTRUM SILVER 50+WOMEN PO) Take by mouth. 0 Active fluticasone-salmeter ol (Advair HFA) 230-21 MCG/ACT inhaler Inhale 2 puffs into the lungs 2 (two) times a day. 0 Active valACYclovir (VALTREX) 500 MG tablet Take 1 tablet (500 mg total) by mouth 2 (two) times a day. 14 tablet 0 06/20/2023 Active LORazepam (ATIVAN) 0.5 MG tablet Take 1 tablet (0.5 mg total) by mouth every 6 (six) hours as needed. 30 tablet 0 06/20/2023 Active FLUoxetine (PROzac) 10 MG capsule Take 1 capsule (10 mg total) by mouth daily. 0 Active rosuvastatin (CRESTOR) tablet 10 mg Take 1 tablet (10 mg total) by mouth daily. 0 Active B Qyzzfun-Elnlfh-IZ (B-COMPLEX PO) Take by mouth. 0 Active Walnut-3 Fatty Acids (OMEGA 3 PO) Take by mouth. 0 Active diphenhydrAMINE (BENADRYL) 25 mg capsule Take 1 capsule (25 mg total) by mouth every 6 (six) hours as needed for itching. 0 Active Palbociclib 100 MG TABSIndications:Prim chiara malignant neoplasm of breast with metastasis (HCC) Take 100 mg by mouth daily Days 1-21 followed by 7 day rest then repeat. 21 tablet 7 01/24/2024 Active letrozole (FEMARA) 2.5 MG tabletIndications:Pr imary malignant neoplasm of breast with metastasis (HCC) Take 1 tablet (2.5 mg total) by mouth daily 30 tablet 6 02/11/2024 Active lidocaine-prilocaine (EMLA) cream Apply topically as needed. 30 g 2 02/11/2024 Active Active Problems Problem Noted Date Diagnosed Date Primary malignant neoplasm of breast with metast asis 12/13/2021 Overview: Inactive diagnosis replaced for August 2022 IMO Load Family History Medical History Relation Name Comments Cancer Father Colon Cancer Cancer Mother Breast Cancer Relation Name Status Comments Father Mother Social History Tobacco Use Types Packs/Day Years Used Date Smoking Tobacco: Never Smokeless Tobacco: Never Alcohol Use Standard Drinks/Week Comments Yes 0 (1 standard drink = 0.6 oz pur e alcohol) Occasional Sex and Gender Information Value Date Recorded Sex Assigned at Female 10/20/2021 11:00 AM EDT Gender Identity Not on file Sexual Orientation Not on file Job Start Date Occupation Industry Not on file Not on file Not on file Last Filed Vital Signs Vital Sign Reading Time Taken Comments Blood Pressure 134/86 09/26/2023 11:05 AM EDT Pulse 66 09/26/2023 11:05 AM EDT Temperature 36.6 C (97.8 F) 09/26/2023 11:05 AM EDT Respiratory Rate 16 11/13/2022 10:11 AM EDT Oxygen Saturation 100% 09/26/2023 11:05 AM EDT Inhaled Oxygen Concentration - - Weight 96.2 kg (212 lb) 07/30/2023 9:08 AM EST Height 167.6 cm (5' 6 ) 07/30/2023 9:08 AM EST Body Mass Index 34.22 07/30/2023 9:08 AM EST Plan of Treatment Health Maintenance Due Date Last Done Comments Hepatitis C Screening 1962 COVID-19 Vaccine (#1) 1967 Depression Screening 1974 BMI Counseling 1980 Preventative Health Evaluation 1980 Cervical Cancer Screening (Pap Smear) 1983 Colon Cancer Screening (Colonoscopy) 2007 Breast Cancer Screening (Mammogram) 2012 Pneumococcal Vaccine (2 of 2 - PCV) 01/23/2023 01/23/2022 Shingrix-Zoster Vaccine (2 o f 2) 02/25/2024 12/31/2023 Influenza Vaccine (#1) 2025 2, 02/08/2021 DTap / Tdap / Td (3 - Td or Tdap) 09/21/2030 09/21/2020, 11/03/2011 RSV Adult > 60+ Yrs or (1 - 1-dose 75+ series) 2037 Hepatitis B Vaccines Completed 06/28/2009, 01/27/2009, 11/17/2008 RSV Ped < 20 months Aged Out No longe r eligible based on patient's age to complete this topic Care Teams Plant Assigner Relationship Specialty Start Date End Date Lu Gomes MD [address] [place] [address] PCP - General Internal Medicine 08/10/22
--- OUTSIDE RECORDS SUMMARY | 2025-04-16 19:43 | XMS_ITS | Encounter Summary ---
Author Organization [facility] Address [address] [address] Phone Care Team Providers Care Outsole Compressor Name Role Phone Katrin Vivas MD Unavailable [phone] Oswald Souza MD Unavailable [phone] Cyndee Young MD, MPH Unavailable [phone] Rashida Weber MD Unavailable [phone] Oswald Souza MD Unavailable [phone] Shelia Rodríguez MD Primary Care Provider [phone] Katrin Mcgrath ENVIRONMENTAL MAINTENANCE WORKER Unavailable [phone] Lu Gomes MD Primary Care Prov ider Mary Ann Aiken MD Unavailable [phone] Sarina Cr MOTION PICTURE PROJECTIONIST Unavailable [phone] Reed Barnett DMD Unavailable [phone] Pacheco Whatley MD Unavailable [phone] Ulices Santana MD Unavailable [phone] Encounter Details Date Type Department Care Team (Late st Contact Info) Description 01/27/2022 Procedure Pass [facility] [place], Ct Scan - [address] [id number] Social History Tobacco Use Types Packs/Day Years [...] high school, GED, job training, learning the Wallisian language, technical skills, or developing parenting skills)? [...] Upcoming Encounters Date Type Department Care Team ([facility] st Contact Info) Description 06/09/2025 10:00 AM EST Office Visit [facility] Urology [address] [facility] [address] [place] [phone] Karolina Greco MD [address] [place] [phone] [email or web address] documented as of this encounter Visit Diagnoses Not on filedocumented in this encounter Care Teams Outsole Compressor Relationship Specialty Start Date End Date Shelia Rodríguez MD [address] [place] [address] PCP - General Internal Medicine 01/27/22 03/28/22 Lu Gomes MD [address] [place] [phone] PCP - General Unknown Provider Specialty 03/29/22 Katrin Vivas MD [address] [place] [phone] General Surgery 07/13/21 03/29/23 Oswald Souza MD [address] [phone] [email or web address] 07/13/21 2 Cyndee Young MD, MPH [address] [place] [phone] [email or web address] Medical [email or web address] 07/13/21 Rashida Weber MD [address] [place] [address] [email or web address] Surgeon Urology 07/21/21 Oswald Souza MD [address] [address] [email or web address] Internal Medicine 10/21/21 Katrin Mcgrath CNP [address] [place] [address] [email or web address] Nurse Practitioner Medical Oncology 03/08/22 Mary Ann Aiken MD [address] [place] [address] Pulmonary Disease 10/16/22 Sarina Cr, [address] [address] [email or web address] [employer] Medical Oncology 02/19/23 Reed Barnett DMD [address] [place] [address] 03/30/23 Pacheco Whatley MD [address] [place] [address] Cardiology 03/30/23 Ulices Santana MD [address] [place] [address] [place] [address] [email or web address] Psychiatrist Psychiatry 04/09/23 documented as of this encounter Additional Source Comments The information contained in this document represents components of the legal health record. It is not the complete legal health record.[facility]
--- OUTSIDE RECORDS SUMMARY | 2025-04-16 19:43 | XMS_ITS | Encounter Summary ---
Author Organization [facility] Address [address] [place] [address] Care Team Providers Care Primary Clinician Name Role Phone Lu Ibrahim MD Primary Care Prov ider Encounter Details Date Type Department Care Team ([facility] st Contact Info) Description 04/13/2025 Results Follow-Up Gastroenterology - [address] [phone] Betito Dawson MD [address] [place] [phone] Social History Tobacco Use Types Packs/Day Years [...] for your loved ones. For example, child & adolescent psychiatrist or elderly care for an older adult? [...] Info) Description 04/17/2025 9:30 AM EST Appointment [facility] [address] [place] [phone] 04/22/2025 10:30 AM EST Office Visit Adult Medicine [address] [phone] Lu Ibrahim MD [address] [place] [address] 07/01/2025 8:30 AM EST Office Visit Adult Medicine [address] [phone] Lu Ibrahim MD [address] [place] [address] 08/27/2025 8:45 AM EDT Office Visit [facility] Hematology Oncology [address] [place] [phone] Oswald Souza MD [address] [place] [address] documented as of this encounter Visit Diagnoses Not on filedocumented in this encounter Additional Health Concerns Active Problems Noted Date Diagnosed Date Autogenerated Problem 04/13/2025 Assessment Noted Time PHQ-9 Depression Total Score: 10 025 9:18 AM EST documented as of this encounter Care Teams Primary Clinician Relationship Specialty Start Date End Date Lu Ibrahim MD [address] [place] [phone] PCP - General Internal Medicine 04/02/25 documented as of this encounter
--- OUTSIDE RECORDS SUMMARY | 2025-04-16 19:43 | XMS_ITS | Clinical Summary ---
Author Organization [facility] Address [address] [facility] [address] [place] [address] Care Team Providers Care Business Continuity Strategy Director Name Role Phone Unavailable Primary Care Provider Unavailabl e Allergies Active Allergy Reactions Criticality Noted Date Comments Denture Adhesive 08/19/2021 Hydrocodone-Acetaminophen Rash Low 08/19/2021 Penicillins Hives 12/28/2017 Sulfa Antibiotics Hives 12/28/2017 Medications apixaban (Eliquis) 5 MG tablet Take 1 tablet by mouth 2 times daily. 2 Active Calcium + Vitamin D3 600-10 MG-MCG tablet Take 1 tablet by mouth with breakfast, with lunch, and with evening meal. 2 Active diphenhydrAMINE -zinc acetate (BENADryl) cream Apply topically if needed in the morning, at noon, and at bedtime. Active Advair HFA 230-21 MCG/ACT inhaler Inhale 2 puffs 2 times daily. 2 Active letrozole (Femara) 2.5 MG chemo tablet Take 2.5 mg by mouth in the morning. 3 Active LORazepam (Ativan) 0.5 MG tablet Take 0.5 mg by mouth 2 times daily. 3 Active Ibrance 100 MG chemo tablet 3 Active rosuvastatin (Crestor) 5 MG tablet Take 5 mg by mouth in the morning. 3 Active valACYclovir (Valtrex) 500 MG tablet Take 500 mg by mouth 2 times daily. 2 Active Zoledronic Acid (Zometa) 4 MG injection Infuse 4 mg into a venous catheter. Active lidocaine (Xylocaine) 2 % solution USE 15 ML IN THE MOUTH OR THROAT IF NEEDED IN THE MORNING, AT NOON, IN THE EVENING, AND AT BEDTIME FOR MUCOSITIS. 100 mL Active Active Problems Problem Noted Date Diagnosed Date Traumatic ulcer of oral mucosa 01/30/2023 Social History Tobacco Use Types Packs/Day Years Used Date Smoking Tobacco: Never Smokeless Tobacco: Never Tobacco Cessation:Counseling Given: Not Answered Comments Unknown Sex and Gender Information Value Date Recorded Sex Assigned at Female 09/26/2022 1:16 PM EDT Legal Sex Female 1:12 PM EDT Gender Identity Female 09/26/2022 1:16 PM EDT Sexual Orientation Choose not to disclose 2022 1:16 PM EDT Last Filed Vital Signs Vital Sign Reading Time Taken Comments Blood Pressure 111/66 12/04/2022 3:51 PM EDT Pulse 77 12/04/2022 3:51 PM EDT Temperature - - Respiratory Rate - - Oxygen Saturation - - Inhaled Oxygen Concentration - - Weight - - Height - - Body Mass Index - - Plan of Treatment Health Maintenance Due Date Last Done Comments CT Colonography 1962 Colonoscopy 1962 Colorectal Cancer Screening 1962 Dental Oral Exam 1962 Dental X-Ray: Full Mouth 1962 Depression Screening 1962 FIT DNA/Cologuard 1962 FIT 1962 FOBT 1962 HIV Screening 1962 SDOH Screening 1962 Sigmoidoscopy 1962 Disability Screening 1962 Alcohol/Substance Use Screening 1974 Hepatitis C Screening 1980 Pap Smear 1983 Cervical Cancer Screening 1992 HPV/Cotest 1992 Pneumococcal Vaccine: 50+ Years (2 of 2 - PCV) 01/23/2023 01/23/2022 Dental Prophylaxis 04/08/2023 10/05/2022 Tobacco Screening 02/06/2024 02/05/2023 Dental X-Ray: Bitewings 02/07/2024 02/05/2023 COVID-19 Vaccine ( season) 2025 11/09/2021, 06/08/2021, 07/20/2020, Additional history exists Influenza Vaccine (#1) 2025 4, 02/06/2023, 01/18/2022, Additional history exists DTaP/Tdap/Td Vaccines (3 - Td or Tdap) 09/21/2030 09/21/2020, 11/03/2011, 05/28/2001 RSV Patients and Patients Aged 60 years or older (1 - 1-dose 75+ series) 2037 Hepatitis B Vaccines Completed 06/28/2009, 01/27/2009, 11/17/2008 Hepatitis A Vaccines Aged Out 07/22/2012, 06/28/19 10 No longer eligible based on patient's age to complete this topic Zoster Vaccines Completed 12/31/2023, 09/26/2023 HIB Vaccines Aged Out No longer eligi ble based on patient's age to complete this topic HPV Vaccines Aged Out No longer eligi ble based on patient's age to complete this topic IPV Vaccines Aged Out No longer eligi ble based on patient's age to complete this topic Meningococcal B Vaccine Aged Out No l onger eligible based on patient's age to complete this topic Meningococcal Vaccine Aged Out No pamela raleigh eligible based on patient's age to complete this topic RSV under 20 months Aged Out No longe r eligible based on patient's age to complete this topic Rotavirus Vaccines Aged Out No longer eligible based on patient's age to complete this topic Procedures Procedure Name Priority Date/Time Associated Diagnosis Comments BITEWING - SINGLE RADIOGRAPHIC IMAGE Routine 02/05/2023 1:00 PM EDT PROPHYLAXIS - ADULT Routine 10/05/2022 3 :00 PM EDT Periodontal disease from Last 3 Months or Most Recently Relevant to Health Maintenance [place] [address] [place] [address] STANDARD MEDICARE D[facility]AL-[facility] MEDICAID [facility] ADULT
--- OUTSIDE RECORDS SUMMARY | 2025-04-16 19:43 | XMS_ITS | Encounter Summary ---
Author Organization [facility], Address [address] [place] [address] Phone Care Team Providers Care Director Telecommunications Name Role Phone Lu Gomes MD Primary Care Provider + Encounter Details Date Type Department Care Team (Late st Contact Info) Description 11/27/2024 Documentation Only [facility], [address] [place] [address] [place], [place] [address] [place] [address] Social History Tobacco Use Types Packs/Day Years Used Date Smoking Tobacco: Never Assessed Comments Unknown Sex and Gender Information Value Date Recorded Sex Assigned at Not on file Legal Sex Female 3:30 PM EDT Gender Identity Not on file Sexual Orientation Not on file documented as of this encounter Plan of Treatment Not on file documented as of this encounter Visit Diagnoses Not on filedocumented in this encounter Care Teams Director Telecommunications Relationship Specialty Start Date [place] [phone] PCP - General 11/27/24 documented as of this encounter
--- OUTSIDE RECORDS SUMMARY | 2025-04-16 19:43 | XMS_ITS | Clinical Summary ---
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 neoplasm of digestive organs CPT copyright 2020 [employer]. All rights reserved. The codes documented in this report are preliminary and upon lease picker review may be revised to meet current compliance requirements. Betito Dawson MD 04/13/2025 1:24:31 PM This report has been signed electronically.Betito Dawson MD Number of Addenda: 0 Note Initiated On: 04/13/2025 1:04 PM Scope In: Scope Out: Endoscopy Department at [facility] - [address] [place] [phone] Procedure Note Betito Dawson MD - 04/13/2025 [facility] Patient Name: Alfred Wagner Procedure Date: 04/13/2025 1:04 PM Date of [...] neoplasm of digestive organs CPT copyright 2020 [employer]. All rights reserved. The codes documented in this report are preliminary and upon lease picker reviewmay be revised to meet current compliance requirements. Betito Dawson MD 04/13/2025 1:24:31 PM This report has been signed electronically.Betito Dawson MD Number of Addenda: 0 Note Initiated On: 04/13/2025 1:04 PM Scope In: Scope Out: Endoscopy Department at [facility] - [address] [place] [phone] IMPRESSION: - Preparation of the colon was fair. - The entire examined colon is normal on direct and retroflexion views. - No specimens collected. Recommendation: - Repeat colonoscopy in 5 years for screeningpurposes. us Betito Dawson MD GI~PROCEDURE ORDERABLES Fin al Result * EGD Anesthesia - MAC; [facility] ENDOSCOPY (04/13/2025 1:30 PM EST) Anatomical Region Laterality Modality Endoscopy 04/13/2025 1:24 PM EST Impressions 04/13/2025 1:30 PM EST - Normal esophagus. - Normal stomach. - Normal examined duodenum. - No specimens collected. Recommendation: - Continue present medications. Narrative 04/13/2025 1:30 PM EST [facility] Patient Name: Alfred Wagner Procedure Date: 04/13/2025 1:24 PM Date of [...] was normal. Procedure Code(s): --- Professional --- 98475, Esophagogastroduodenoscopy, flexible, transoral; diagnostic, including collection of specimen(s) by brushing or washing, when performed (separate procedure) Diagnosis Code(s): --- Professional --- K92.1, Melena (includes Hematochezia) D64.9, Anemia, unspecified CPT copyright 2020 [employer]. All rights reserved. The codes documented in this report are preliminary and upon lease picker review may be revised to meet current compliance requirements. Betito Dawson MD 04/13/2025 1:30:22 PM This report has been signed electronically.Betito Dawson MD Number of Addenda: 0 Note Initiated On: 04/13/2025 1:24 PM Scope In: Scope Out: Endoscopy Department at [facility] - [address] [place] [id number] Procedure Note Betito Dawson MD - 04/13/2025 [facility] Patient Name: Alfred Wagner Procedure Date: 04/13/2025 1:24 PM Date of [...] was normal. Procedure Code(s): --- Professional --- 73633, Esophagogastroduodenoscopy, flexible, transoral; diagnostic, including collection of specimen(s) by brushing or washing, when performed (separate procedure) Diagnosis Code(s): --- Professional --- Ariane92.1, Melena (includes Hematochezia) D64.9, Anemia, unspecified CPT copyright 2020 [employer]. All rights reserved. The codes documented in this report are preliminary and upon lease picker reviewmay be revised to meet current compliance requirements. Betito Dawson MD 04/13/2025 1:30:22 PM This report has been signed electronically.Betito Dawson MD Number of Addenda: 0 Note Initiated On: 04/13/2025 1:24 PM Scope In: Scope Out: Endoscopy Department at [facility] - [address] [place] [phone] IMPRESSION: - Normal esophagus. - Normal stomach. - Normal examined duodenum. - No specimens collected. Recommendation: - Continue present medications. Betito Dawson MD GI~PROCEDURE ORDERABLES Fin al Result * OSWALDO IFA with titer and pattern (04/13/2025 11:42 AM EST) OSWALDO Negative Negative 04/14/2025 12:05 PM EST [facility] Comment:OSWALDO performed by ind irect immunofluorescence (IFA) using HEp-2 substrate. Blood Venous blood specimen / Unknown Venipuncture / Unknown 04/13/2025 11:42 AM EST 04/13/2025 11:57 AM EST Lu Ibrahim MD LAB BLOOD ORDERABL ES Final Result [facility] [address] [place] [address], * ECG-Annotated (04/08/2025) Only the most recent of3 resultswithin the time period is included. us Provider Onbase ECG ORDERABLES Final Result * MR Orbit/Face/Neck wo and w Contrast (04/06/2025 3:35 PM EST) Anatomical Region Laterality Modality Head and Neck Magnetic Resonan ce 04/06/2025 4:39 PM EST Impressions 04/06/2025 4:41 PM EST 1. No significant abnormality of the orbits. -------- FINAL REPORT -------- Dictated By: Brianne Tamez Dictated Date: 04/06/2025 16:39 ET Assigned Physician: Brianne Tamez Reviewed and Electronically Signed By: Brianne Tamez Signed Date: 04/06/2025 16:41 ET Workstation ID: [id number] Transcribed By: Self Edit Transcribed Date: 04/06/2025 16:39 ET Narrative 04/06/2025 4:41 PM EST MRI OF THE ORBITS WITH AND WITHOUT CONTRAST: TECHNIQUE: Multiplanar multisequence MRI of the orbits was performed with and without intravenous contrast. HISTORY: CVA headache PRIORS: None. FINDINGS: ORBITS: The anterior and posterior chambers of the globes are intact. The retrobulbar fat is unremarkable. Extraocular muscles are unremarkable. OPTIC NERVES: The intracranial and extracranial portions of the optic nerves are within normal limits. Optic chiasm is within normal limits. No MRI evidence of optic neuritis identified. SOFT TISSUES: The superior ophthalmic veins are unremarkable. Remaining soft tissues are unremarkable. ENHANCEMENT: No suspicious enhancement identified. VISUALIZED PARANASAL SINUSES/MASTOIDS: Clear. OTHER FINDINGS: None. Procedure Note Brianne Tmaez MD - 04/06/2025 MRI OF THE ORBITS WITH AND WITHOUT CONTRAST: TECHNIQUE: Multiplanar multisequence MRI of the orbits was performed with and withoutintravenous contrast. HISTORY: CVA headache PRIORS: None. FINDINGS: ORBITS: The anterior and posterior chambers of the globes are intact.The retrobulbar fat is unremarkable. Extraocular muscles areunremarkable. OPTIC NERVES: The intracranial and extracranial portions of the opticnerves are within normal limits. Optic chiasm is within normal limits.No MRI evidence of optic neuritis identified. SOFT TISSUES: The superior ophthalmic veins are unremarkable. Remainingsoft tissues are unremarkable. ENHANCEMENT: No suspicious enhancement identified. VISUALIZED PARANASAL SINUSES/MASTOIDS: Clear. OTHER FINDINGS: None. IMPRESSION: 1. No significant abnormality of the orbits. -------- FINAL REPORT -------- Dictated By: Brianne Tamez Dictated Date: 04/06/2025 16:39 ET Assigned Physician: Brianne Tamez Reviewed and Electronically Signed By: Brianne Tamez Signed Date: 04/06/2025 16:41 ET Workstation ID: [id number] Transcribed By: Self Edit Transcribed Date: 04/06/2025 16:39 ET us Osmin Swan MD IMG MRI PROCEDURES Final Result * MR Brain w Contrast (04/06/2025 3:35 PM EST) Anatomical Region Laterality Modality Head and Neck Magnetic Resonan ce 04/06/2025 4:01 PM EST Impressions 04/06/2025 4:04 PM EST No metastatic disease. -------- FINAL REPORT -------- Dictated By: Brianne Tamez Dictated Date: 04/06/2025 16:01 ET Assigned Physician: Brianne Tamez Reviewed and Electronically Signed By: Brianne Tamez Signed Date: 04/06/2025 16:04 ET Workstation ID: [id number] Transcribed By: Self Edit Transcribed Date: 04/06/2025 16:01 ET Narrative 04/06/2025 4:04 PM EST HISTORY: ? metastasis at brainstem. headache. TECHNIQUE: Routine MRI of the brain with and without contrast. Contrast: 20mL Dotarem COMPARISON: None available. FINDINGS: No acute territorial infarct, mass effect, or intracranial hemorrhage. No significant white matter disease No hydrocephalus. Visualized paranasal sinuses are clear. Mastoid air cells are clear. No calvarial fracture. Orbits unremarkable. Procedure Note Brianne Tamez MD - 04/06/2025 HISTORY: ? metastasis at brainstem. headache. TECHNIQUE: Routine MRI of the brain with and without contrast. Contrast: 20mL Dotarem COMPARISON: None available. FINDINGS: No acute territorial infarct, mass effect, or intracranial hemorrhage. No significant white matter disease No hydrocephalus. Visualized paranasal sinuses are clear. Mastoid air cells are clear. No calvarial fracture. Orbits unremarkable. IMPRESSION: No metastatic disease. -------- FINAL REPORT -------- Dictated By: Brianne Tamez Dictated Date: 04/06/2025 16:01 ET Assigned Physician: Brianne Tamez Reviewed and Electronically Signed By: Brianne Tamez Signed Date: 04/06/2025 16:04 ET Workstation ID: [id number] Transcribed By: Self Edit Transcribed Date: 04/06/2025 16:01 ET us Sadie DORAN IMG MRI PROCEDURES Final Result * Occult blood stool, guaiac (04/06/2025 11:00 AM EST) Pathologist [facility] Occult Blood, Stool #1 Negative Negative 04/06/2025 11:47 AM EST [facility] Stool Rectum structure / Unknown Non-blood Collection / Unknown 04/06/2025 11:00 AM EST 04/06/2025 11:24 AM EST us Sadie DORAN LAB BODY FLUIDS AND STOOLS ORDE RABLES Final Result Performing Organization Address [facility]/ZIP Co de Phone Number [facility] [address] [place] [address], [place] [phone] * (ABNORMAL) Vitamin B12 and folate (04/06/2025 10:36 AM EST) Only the most recent of2 resultswithin the time period is included. [facility] Vitamin B-12 684 250 - 900 pcg/mL LAB CHEMISTRY METHOD 04/06/2025 12:15 PM [facility] Folate >20.0(H) 2.8 - 17.0 ng/ml LAB CHEMISTRY METHOD 04/06/2025 12:15 PM [facility] Blood Venous blood specimen / Unknown Venipuncture / Unknown 04/06/2025 10:36 AM EST 04/06/2025 11:19 AM EST us Sadie DORAN LAB BLOOD ORDERABLES Final Resu lt Performing Organization Address City/[facility]/ZIP Co de Phone Number [facility] [address] [place] [address], [place] [phone] * Lipid panel with reflex to direct LDL (04/06/2025 10:36 AM EST) Cholesterol 166 0 - 200 mg/dL LAB CHEMISTRY METHOD 04/06/2025 11:52 AM EST [facility] Triglycerides 80 0 - 150 mg/dL LAB CHEMISTRY METHOD 04/06/2025 11:52 AM [facility] HDL 65 >=40 mg/dL LAB CHEMISTRY METHOD 04/06/2025 11:52 AM EST [facility] LDL Calculated 85 0 - 100 mg/dL LAB CHEMISTRY METHOD 04/06/2025 11:52 AM [facility] Comment:Estimated LDL Calcul ated using equation: Total cholesterol - HDL cholesterol - (Triglycerides/5) VLDL Cholesterol Hussain 16 mg/dL LAB CHEMISTRY METHOD 04/06/2025 11:52 AM [facility] Non HDL Chol. (LDL+VLDL) 101 <145 mg/dL LAB CHEMISTRY METHOD 04/06/2025 11:52 AM [facility] Chol/HDL Ratio 2.6 0.0 - 4.4 LAB CHEMISTRY METHOD 04/06/2025 11:52 AM [facility] Blood Venous blood specimen / Unknown Venipuncture / Unknown 04/06/2025 10:36 AM EST 04/06/2025 11:19 AM EST Sadie DORAN LAB BLOOD ORDERABLES Final Resu lt [facility] [address] [place] [address], * Apolipoprotein B (04/06/2025 10:36 AM EST) Apolipoprotein B 75 55 - 125 mg/dL 04/09/2025 3:47 AM EST [facility] Comment: Test performed at [facility], [address] , [place] [phone] Felisa Castillo MD, PhD - [employer] Blood Venous blood specimen / Unknown Venipuncture / Unknown 04/06/2025 10:36 AM EST 04/06/2025 11:19 AM EST Sadie DORAN LAB BLOOD ORDERABLES Final Resu lt Performing Organization Address City/[facility]/ZIP Co de Phone Number [facility] [address] [place] [address] * Iron and TIBC (04/06/2025 10:36 AM EST) [facility] Iron 89 40 - 150 mcg/dL LAB CHEMISTRY METHOD 04/06/2025 11:52 AM EST [facility] TIBC 275 250 - 450 mcg/dL LAB CHEMISTRY METHOD 04/06/2025 11:52 AM EST [facility] Iron Saturation 32 15 - 50 % LAB CHEMISTRY METHOD 04/06/2025 11:52 AM EST [facility] Blood Venous blood specimen / Unknown Venipuncture / Unknown 04/06/2025 10:36 AM EST 04/06/2025 11:19 AM EST Sadie DORAN LAB BLOOD ORDERABLES Final Resu lt Performing Organization Address City/[facility]/ZIP Co de Phone Number [facility] [address] [place] [address], [place] [phone] * Reticulocyte count (04/06/2025 10:36 AM EST) Retic Ct Abs 0.048 0.030 - 0.090 M/mcL LAB HEMETOLOGY METHOD 04/06/2025 11:32 AM EST [facility] Retic Ct Pct 1.6 0.7 - 1.7 % LAB HEMETOLOGY METHOD 04/06/2025 11:32 AM EST [facility] Immature Retic Fract 12.5 2.3 - 15.9 % LAB HEMETOLOGY METHOD 04/06/2025 11:32 AM EST [facility] Reticulocyte Hemoglobin 40.2 >29.0 pcg LAB HEMETOLOGY METHOD 04/06/2025 11:32 AM [facility] Blood Venous blood specimen / Unknown Venipuncture / Unknown 04/06/2025 10:36 AM EST 04/06/2025 11:19 AM EST Sadie DORAN LAB BLOOD ORDERABLES Final Resu lt [facility] [address] [place] [address], * (ABNORMAL) Complete blood count (04/06/2025 10:36 AM EST) WBC 3.1(L) 4.8 - 10.8 K/mcL LAB HEMETOLOGY METHOD 04/06/2025 11:31 AM [facility] RBC 2.90(L) 3.80 - 4.80 M/mcL LAB HEMETOLOGY METHOD 04/06/2025 11:31 AM [facility] Hemoglobin 10.5(L) 11.5 - 16.0 g/dL LAB HEMETOLOGY METHOD 04/06/2025 11:31 AM [facility] Hematocrit 31.0(L) 35.0 - 47.0 % LAB HEMETOLOGY METHOD 04/06/2025 11:31 AM [facility] MCV 106.9(H) 79.0 - 98.0 FL LAB HEMETOLOGY METHOD 04/06/2025 11:31 AM [facility] MCH 36.2(H) 27.0 - 32.0 pcg LAB HEMETOLOGY METHOD 04/06/2025 11:31 AM [facility] MCHC 33.9 32.0 - 37.0 g/dL LAB HEMETOLOGY METHOD 04/06/2025 11:31 AM EST [facility] RDW 12.9 11.0 - 15.0 % LAB HEMETOLOGY METHOD 04/06/2025 11:31 AM EST [facility] Platelets 163 130 - 400 K/mcL LAB HEMETOLOGY METHOD 04/06/2025 11:31 AM EST [facility] MPV 9.0 7.0 - 11.0 FL LAB HEMETOLOGY METHOD 04/06/2025 11:31 AM EST [facility] NRBC 0.0 <1.0 % LAB HEMETOLOGY METHOD 04/06/2025 11:31 AM EST [facility] NRBC Absolute 0.00 <0.10 K/mcL LAB HEMETOLOGY METHOD 04/06/2025 11:31 AM EST [facility] Blood Venous blood specimen / Unknown Venipuncture / Unknown 04/06/2025 10:36 AM EST 04/06/2025 11:19 AM EST us Brenda Brown MD LAB BLOOD ORDERABLES Final Res ult [facility] [address] [place] [address], [place] [phone] * Transferrin (04/06/2025 10:36 AM EST) Transferrin 232 200 - 360 mg/dL 04/09/2025 3:27 AM EST [facility] Comment: Test performed at [facility], [address], [place] [address] Felisa Castillo MD, PhD - [employer] Blood Venous blood specimen / Unknown Venipuncture / Unknown 04/06/2025 10:36 AM EST 04/06/2025 11:19 AM EST us Sadie DORAN LAB BLOOD ORDERABLES Final Resu lt [facility] [address] [place] [address] * Lactate dehydrogenase (04/06/2025 10:36 AM EST) Pathologist [facility] LDH 225 120 - 246 unit/L LAB CHEMISTRY METHOD 04/06/2025 11:52 AM EST [facility] Blood Venous blood specimen / Unknown Venipuncture / Unknown 04/06/2025 10:36 AM EST 04/06/2025 11:19 AM EST Sadie DORAN LAB BLOOD ORDERABLES Final Resu lt [facility] [address] [place] [address], [place] [phone] * Homocysteine, total (04/06/2025 10:36 AM EST) [facility] Homocysteine 10.3 3.2 - 10.7 mcmol/L LAB CHEMISTRY METHOD 04/06/2025 12:15 PM EST [facility] Blood Venous blood specimen / Unknown Venipuncture / Unknown 04/06/2025 10:36 AM EST 04/06/2025 11:19 AM EST Sadie DORAN LAB BLOOD ORDERABLES Final Resu lt [facility] [address] [place] [address], [place] [phone] * Hemoglobin A1c (04/06/2025 10:36 AM EST) Pathologist [facility] Hemoglobin A1C 5.2 <6.5 % LAB CHEMISTRY METHOD 04/06/2025 5:07 PM EST [facility] Mean Bld Glu Estim. 103 mg/dL LAB CHEMISTRY METHOD 04/06/2025 5:07 PM EST [facility] Blood Venous blood specimen / Unknown Venipuncture / Unknown 04/06/2025 10:36 AM EST 04/06/2025 11:19 AM EST us Sadie DORAN LAB BLOOD ORDERABLES Final Resu lt Performing Organization Address [facility]/ZIP Co de Phone Number [facility] [address] [place] [address], [place] [phone] * Haptoglobin (04/06/2025 10:36 AM EST) Pathologist [facility] Haptoglobin 58 16 - 200 mg/dL LAB CHEMISTRY METHOD 04/06/2025 11:52 AM EST [facility] Blood Venous blood specimen / Unknown Venipuncture / Unknown 04/06/2025 10:36 AM EST 04/06/2025 11:19 AM EST us Sadie DORAN LAB BLOOD ORDERABLES Final Resu lt Performing Organization Address [facility] de Phone Number [facility] [address] [place] [address], [place] [phone] * Ferritin (04/06/2025 10:36 AM EST) [facility] Ferritin 166 8 - 252 ng/mL LAB CHEMISTRY METHOD 04/06/2025 12:15 PM EST [facility] Blood Venous blood specimen / Unknown Venipuncture / Unknown 04/06/2025 10:36 AM EST 04/06/2025 11:19 AM EST us Sadie DORAN LAB BLOOD ORDERABLES Final Resu lt Performing Organization Address [facility] de Phone Number [facility] [address] [place] [address], [place] [phone] * (ABNORMAL) Basic metabolic panel (04/06/2025 10:36 AM EST) Only the most recent of2 resultswithin the time period is included. [facility] Sodium 141 133 - 145 mmol/L LAB CHEMISTRY METHOD 04/06/2025 11:52 AM [facility] Potassium 3.8 3.5 - 5.5 mmol/L LAB CHEMISTRY METHOD 04/06/2025 11:52 AM [facility] Chloride 108 96 - 110 mmol/L LAB CHEMISTRY METHOD 04/06/2025 11:52 AM [facility] CO2 25 21 - 32 mmol/L LAB CHEMISTRY METHOD 04/06/2025 11:52 AM [facility] Anion Gap 8 3 - 11 LAB CHEMISTRY METHOD 04/06/2025 11:52 AM [facility] Glucose 116(H) 70 - 100 mg/dL LAB CHEMISTRY METHOD 04/06/2025 11:52 AM [facility] BUN 19 5 - 25 mg/dL LAB CHEMISTRY METHOD 04/06/2025 11:52 AM [facility] Creatinine 1.04 0.50 - 1.10 mg/dL LAB CHEMISTRY METHOD 04/06/2025 11:52 AM [facility] eGFR 61 >=60 mL/min/1. 73m2 LAB CHEMISTRY METHOD 04/06/2025 11:52 AM [facility] Comment:Calculation based on the Chronic Kidney Disease Epidemiology Collaboration (CKD-EPI) equation refit without adjustment for race. BUN/Creatinine Ratio 18.3 LAB CHEMISTRY METHOD 04/06/2025 11:52 AM [facility] Calcium 8.9 8.5 - 10.5 mg/dL LAB CHEMISTRY METHOD 04/06/2025 11:52 AM [facility] Blood Venous blood specimen / Unknown Venipuncture / Unknown 04/06/2025 10:36 AM EST 04/06/2025 11:19 AM EST us Brenda Brown MD LAB BLOOD ORDERABLES Final Res ult [facility] [address] [place] [address], * POCT Glucose, blood (04/05/2025 8:29 PM EST) Only the most recent of2 resultswithin the time period is included. Glucose POCT 98 70 - 100 mg/dL 04/05/2025 8:29 PM EST [facility] Blood Capillary blood specimen / Unknown 04/05/2025 8:29 PM EST 04/05/2025 8:30 PM EST us Brenda Brown MD LAB POINT OF CARE TE ST DOCKED DEVICE UNSOLICITED RESULTS Final Result [facility] [address] [place] [address], [place] [phone] * XR Chest 1 View (04/05/2025 1:08 PM EST) Anatomical Region Laterality Modality Body Radiographic Rashmi ging 04/05/2025 1:42 PM EST Impressions 04/05/2025 1:42 PM EST FINDINGS/IMPRESSION: Low lung volumes. No consolidation or effusion. No congestive heart failure. Right chest wall port. -------- FINAL REPORT -------- Dictated By: Brianne Tamez Dictated Date: 04/05/2025 13:42 ET Assigned Physician: Brianne Tamez Reviewed and Electronically Signed By: Brianne Tamez Signed Date: 04/05/2025 13:42 ET Workstation ID: [id number] Transcribed By: Self Edit Transcribed Date: 04/05/2025 13:42 ET Narrative 04/05/2025 1:42 PM EST XR CHEST 1 VIEW INDICATION: general weakness TECHNIQUE: XR CHEST 1 VIEW COMPARISON: None Procedure Note Brianne Tamez MD - 04/05/2025 XR CHEST 1 VIEW INDICATION: general weakness TECHNIQUE: XR CHEST 1 VIEW COMPARISON: None IMPRESSION: FINDINGS/IMPRESSION: Low lung volumes. No consolidation or effusion. Nocongestive heart failure. Right chest wall port. -------- FINAL REPORT -------- Dictated By: Brianne Tamez Dictated Date: 04/05/2025 13:42 ET Assigned Physician: Brianne Tamez Reviewed and Electronically Signed By: Brianne Tamez Signed Date: 04/05/2025 13:42 ET Workstation ID: [id number] Transcribed By: Self Edit Transcribed Date: 04/05/2025 13:42 ET us Brenda Brown MD IMG XR PROCEDURES Final Result * MR Brain wo Contrast (04/05/2025 12:08 PM EST) Anatomical Region Laterality Modality Head and Neck Magnetic Resonan ce 04/05/2025 12:5 5 PM EST Impressions 04/05/2025 12:55 PM EST No acute territorial infarct, mass effect, or intracranial hemorrhage. -------- FINAL REPORT -------- Dictated By: Brianne Tamez Dictated Date: 04/05/2025 12:55 ET Assigned Physician: Brianne Tamez Reviewed and Electronically Signed By: Brianne Tamez Signed Date: 04/05/2025 12:55 ET Workstation ID: [id number] Transcribed By: Self Edit Transcribed Date: 04/05/2025 12:55 ET Narrative 04/05/2025 12:55 PM EST HISTORY: CVA. TECHNIQUE: Routine MRI of the brain without contrast. COMPARISON: None available. FINDINGS: No acute territorial infarct, mass effect, or intracranial hemorrhage. Mild scattered periventricular and subcortical white matter T2/FLAIR hyperintensities are most likely related to chronic small vessel ischemic change. No hydrocephalus. Visualized paranasal sinuses are clear. Mastoid air cells are clear. No calvarial fracture. Orbits unremarkable. Procedure Note Brianne Tamez MD - 04/05/2025 HISTORY: CVA. TECHNIQUE: Routine MRI of the brain without contrast. COMPARISON: None available. FINDINGS: No acute territorial infarct, mass effect, or intracranial hemorrhage. Mild scattered periventricular and subcortical white matter T2/FLAIRhyperintensities are most likely related to chronic small vessel ischemicchange. No hydrocephalus. Visualized paranasal sinuses are clear. Mastoid air cells are clear. No calvarial fracture. Orbits unremarkable. IMPRESSION: No acute territorial infarct, mass effect, or intracranial hemorrhage. -------- FINAL REPORT -------- Dictated By: Brianne Tamez Dictated Date: 04/05/2025 12:55 ET Assigned Physician: Brianne Tamez Reviewed and Electronically Signed By: Brianne Tamez Signed Date: 04/05/2025 12:55 ET Workstation ID: [id number] Transcribed By: Self Edit Transcribed Date: 04/05/2025 12:55 ET us Brenda Brown MD IMG MRI PROCEDURES Final Resul t * (ABNORMAL) CBC auto differential (04/05/2025 9:16 AM EST) Only the most recent of6 resultswithin the time period is included. WBC 3.8(L) 4.8 - 10.8 K/mcL LAB HEMETOLOGY METHOD 04/05/2025 9:29 AM [facility] RBC 3.00(L) 3.80 - 4.80 M/mcL LAB HEMETOLOGY METHOD 04/05/2025 9:29 AM [facility] Hemoglobin 10.7(L) 11.5 - 16.0 g/dL LAB HEMETOLOGY METHOD 04/05/2025 9:29 AM [facility] Hematocrit 32.0(L) 35.0 - 47.0 % LAB HEMETOLOGY METHOD 04/05/2025 9:29 AM [facility] MCV 107.0(H) 79.0 - 98.0 FL LAB HEMETOLOGY METHOD 04/05/2025 9:29 AM [facility] MCH 35.8(H) 27.0 - 32.0 pcg LAB HEMETOLOGY METHOD 04/05/2025 9:29 AM [facility] MCHC 33.4 32.0 - 37.0 g/dL LAB HEMETOLOGY METHOD 04/05/2025 9:29 AM [facility] RDW 13.1 11.0 - 15.0 % LAB HEMETOLOGY METHOD 04/05/2025 9:29 AM [facility] Platelets 189 130 - 400 K/mcL LAB HEMETOLOGY METHOD 04/05/2025 9:29 AM [facility] MPV 8.9 7.0 - 11.0 FL LAB HEMETOLOGY METHOD 04/05/2025 9:29 AM [facility] NRBC 0.0 <1.0 % LAB HEMETOLOGY METHOD 04/05/2025 9:29 AM [facility] NRBC Absolute 0.00 <0.10 K/mcL LAB HEMETOLOGY METHOD 04/05/2025 9:29 AM [facility] Neutrophils Relative 50.6 % LAB HEMETOLOGY METHOD 04/05/2025 9:29 AM [facility] Lymphocytes Relative 36.3 % LAB HEMETOLOGY METHOD 04/05/2025 9:29 AM [facility] Monocytes Relative 6.8 % LAB HEMETOLOGY METHOD 04/05/2025 9:29 AM [facility] Eosinophils Relative 3.4 % LAB HEMETOLOGY METHOD 04/05/2025 9:29 AM [facility] Basophils Relative 2.4 % LAB HEMETOLOGY METHOD 04/05/2025 9:29 AM [facility] Immature Granulocytes Relative 0.5 % LAB HEMETOLOGY METHOD 04/05/2025 9:29 AM [facility] Neutrophils Absolute 1.92 1.50 - 7.00 K/mcL LAB HEMETOLOGY METHOD 04/05/2025 9:29 AM [facility] Lymphocytes Absolute 1.38 1.00 - 5.00 K/mcL LAB HEMETOLOGY METHOD 04/05/2025 9:29 AM [facility] Monocytes Absolute 0.26 0.20 - 1.00 K/mcL LAB HEMETOLOGY METHOD 04/05/2025 9:29 AM EST [facility] Eosinophils Absolute 0.13 0.00 - 0.50 K/mcL LAB HEMETOLOGY METHOD 04/05/2025 9:29 AM EST [facility] Basophils Absolute 0.09 0.00 - 0.20 K/mcL LAB HEMETOLOGY METHOD 04/05/2025 9:29 AM EST [facility] Immature Granulocytes Absolute 0.02 0.00 - 0.03 K/mcL LAB HEMETOLOGY METHOD 04/05/2025 9:29 AM EST [facility] Blood Venous blood specimen / Unknown Venipuncture / Unknown 04/05/2025 9:16 AM EST 04/05/2025 9:23 AM EST Bobbi Xie NP LAB BLOOD ORDERABLES Nichole pink Result [facility] [address] [place] [address], * (ABNORMAL) Borrelia burgdorferi antibody (04/05/2025 9:16 AM EST) Lyme IgG Antibody Positive(A) Negative LAB CHEMISTRY METHOD 04/06/2025 11:00 AM [facility] Comment: This is an appended report. These results have been appended to a previously final verified report. Result component has been updated to reportable to [facility]. Lyme IgM Antibody Negative Negative LAB CHEMISTRY METHOD 04/06/2025 11:00 AM EST [facility] Comment:This is an appended report. These results have been appended to a previously final verified report. 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 IgG-class antibodies may remain detectable for months to years following resolution of infection. Results SHOULD NOT be used to monitor or establish adequate response to therapy. Response to therapy is confirmed through resolution of clinical symptoms; additional laboratory testing SHOULD NOT be performed. If both tests are equivocal consider repeat testing in 7-14 days if clinically warranted Blood Venous blood specimen / Unknown Venipuncture / Unknown 04/05/2025 9:16 AM EST 04/05/2025 9:23 AM EST Brenda Brown MD LAB BLOOD ORDERABLES Edited Re sult - Final Performing Organization Address [facility]/ZIP Co de Phone Number [facility] [address] [place] [address], [place] [phone] * (ABNORMAL) Activated partial thromboplastin time (04/05/2025 9:16 AM EST) [facility] aPTT 50.7(H) 24.1 - 39.3 sec LAB COAGULATION METHOD 04/05/2025 9:48 AM EST [facility] Blood Venous blood specimen / Unknown Venipuncture / Unknown 04/05/2025 9:16 AM EST 04/05/2025 9:23 AM EST Bobbi Xie NP LAB BLOOD ORDERABLES Nichole l Result Performing Organization Address [facility] Co de Phone Number [facility] [address] [place] [address], [place] [phone] * Prothrombin time with INR (04/05/2025 9:16 AM EST) Pathologist [facility] Protime 11.8 10.6 - 13.9 sec LAB COAGULATION METHOD 04/05/2025 9:36 AM EST [facility] INR 0.9 LAB COAGULATION METHOD 04/05/2025 9:36 AM EST [facility] Blood Venous blood specimen / Unknown Venipuncture / Unknown 04/05/2025 9:16 AM EST 04/05/2025 9:23 AM EST Bobbi Xie NP LAB BLOOD ORDERABLES Nichole l Result Performing Organization Address City/[facility]/ZIP Co de Phone Number [facility] [address] [place] [address], * C reactive protein, high sensitivity (04/05/2025 9:16 AM EST) [facility] CRP, High Sensitivity 0.97 mg/L LAB CHEMISTRY METHOD 04/05/2025 2:36 PM EST [facility] Comment: Cardio CRP Relative Risk Categories Low <1.0 mg/L Average 1.0 - 3.0 mg/L High >3.0 mg/L Levels >10.0 mg/L should be ignored and repeated when the patient is stable and infection or inflammation is ruled out. HRT (estrogens) consistently increase cardio CRP levels. Risk estimates for women on HRT may need to be calibrated downward. Blood Venous blood specimen / Unknown Venipuncture / Unknown 04/05/2025 9:16 AM EST 04/05/2025 9:23 AM EST us Brenda Brown MD LAB BLOOD ORDERABLES Final Res ult Performing Organization Address [facility] Co de Phone Number [facility] [address] [place] [address], * ECG 12 lead (04/05/2025 8:48 AM EST) Only the most recent of4 resultswithin the time period is included. [facility] Ventricular Rate ECG 82 BPM GEMUSE Atrial Rate 82 BPM GEMUSE P-R Interval 156 ms GEMUSE QRS Duration 82 ms GEMUSE Q-T Interval 372 ms GEMUSE QTc 434 ms GEMUSE P Wave [place] 30 degrees GEMUSE R [place] 0 degrees GEMUSE T [place] 18 degrees GEMUSE ECG Interpretation Normal sinus rhythm Possible Anterior infarct (cited on or before 19-MAR-2025) Abnormal ECG When compared with ECG of 04-APR-2025 08:17, (unconfirmed ) Vent. rate has increased BY 27 BPM Confirmed by MARY LOUISE ([id number]) on 04/05/2025 5:10:45 PM GEMUSE 04/05/2025 8:48 AM EST 04/05/2025 5:10 PM EST Bobbi Xie PATIENT REGISTRATION CLERK ECG ORDERABLES Final Res ult GEMUSE * (ABNORMAL) POC glucose manually resulted (04/05/2025 8:43 AM EST) Glucose POC 113(A) 70 - 110 mg/dL Blood Capillary blood specimen / Unknown 04/05/2025 8:43 AM EST Bobbi Xie PATIENT REGISTRATION CLERK POINT OF CARE TEST ENTER/ EDIT ORDERABLES Final Result * CT Head Stroke wo Contrast (04/05/2025 8:42 AM EST) Anatomical Region Laterality Modality Head and Neck Computed Tomogra phy 04/05/2025 8:41 AM EST Impressions 04/05/2025 8:43 AM EST No acute intracranial abnormality. Findings communicated to Bobbi Xie at approximately [phone] via secure text. -------- FINAL REPORT -------- Dictated By: Brianne Tamez Dictated Date: 04/05/2025 08:41 ET Assigned Physician: Brianne Tamez Reviewed and Electronically Signed By: Brianne Tamez Signed Date: 04/05/2025 08:43 ET Workstation ID: [id number] Transcribed By: Self Edit Transcribed Date: 04/05/2025 08:41 ET Narrative 04/05/2025 8:43 AM EST PROCEDURE: HEAD CT INDICATION: general weakness TECHNIQUE: CT of the head without intravenous contrast. Multiplanar reformats. The examination was performed utilizing dose reduction techniques. Total DLP 809 COMPARISON: No priors available. FINDINGS: No acute territorial infarct, mass effect, or intracranial hemorrhage. Mild scattered periventricular and subcortical white matter hypodensities are most likely related to chronic small vessel ischemic change. No hydrocephalus. Visualized paranasal sinuses are clear. Mastoid air cells are clear. No calvarial fracture. Procedure Note Brianne Tamez MD - 04/05/2025 PROCEDURE: HEAD CT INDICATION: general weakness TECHNIQUE: CT of the head without intravenous contrast. Multiplanarreformats. The examination was performed utilizing dose reductiontechniques. Total DLP 809 COMPARISON: No priors available. FINDINGS: No acute territorial infarct, mass effect, or intracranial hemorrhage. Mild scattered periventricular and subcortical white matter hypodensitiesare most likely related to chronic small vessel ischemic change. No hydrocephalus. Visualized paranasal sinuses are clear. Mastoid air cells are clear. No calvarial fracture. IMPRESSION: No acute intracranial abnormality. Findings communicated to Bobbi Xie at approximately 842 via securetext. -------- FINAL REPORT -------- Dictated By: Brianne Tamez Dictated Date: 04/05/2025 08:41 ET Assigned Physician: Brianne Tamez Reviewed and Electronically Signed By: Brianne Tamez Signed Date: 04/05/2025 08:43 ET Workstation ID: [id number] Transcribed By: Self Edit Transcribed Date: 04/05/2025 08:41 ET us Bobbi Xie PATIENT REGISTRATION CLERK IMG CT PROCEDURES Final R esult * CT Angio Head/Neck Stroke wo and/or w Contrast (04/05/2025 8:42 AM EST) Anatomical Region Laterality Modality Head and Neck Computed Tomogra phy 04/05/2025 9:27 AM EST Impressions 04/05/2025 9:31 AM EST NO ACUTE INTRACRANIAL ABNORMALITY. -------- FINAL REPORT -------- Dictated By: Brianne Tamez Dictated Date: 04/05/2025 09:27 ET Assigned Physician: Brianne Tamez Reviewed and Electronically Signed By: Brianne Tamez Signed Date: 04/05/2025 09:31 ET Workstation ID: [id number] Transcribed By: Self Edit Transcribed Date: 04/05/2025 09:27 ET Narrative 04/05/2025 9:31 AM EST PROCEDURE: CTA HEAD AND NECK INDICATION: general weakness TECHNIQUE: CTA of the head and neck with intravenous contrast. Multiplanar reformats. The examination was performed utilizing dose reduction techniques.3-D or MIP images were produced with postprocessing on an independent computer workstation. 90cc Omnipaque 370 injected. Scan was analyzed using [employer] based computer aided triage software. Total DLP: 2730 mGy/cm COMPARISON: No priors available. FINDINGS: Noncon Brain: Cerebral hemispheres are symmetric without evidence for mass, hemorrhage or CT evidence for acute territorial infarct. CTA Neck: There is a left-sided aortic arch. Great vessels are patent with conventional anatomy. Common carotid and internal carotid arteries are patent in the neck. Cervical vertebral arteries are patent. Visualized lung apices are clear. Soft tissues of the neck are normal. CTA Head: Intracranial portions of the internal carotid arteries are patent. Proximal middle and anterior circulation is patent. Vertebrobasilar system is patent. Proximal ell tutor are patent. Major dural venous sinuses opacify normally with contrast. Extracranial structures are unremarkable. Degenerative changes in the bones. Procedure Note Brianne Tamez MD - 04/05/2025 PROCEDURE: CTA HEAD AND NECK INDICATION: general weakness TECHNIQUE: CTA of the head and neck with intravenous contrast. Multiplanarreformats. The examination was performed utilizing dose reductiontechniques.3-D or MIP images were produced with postprocessing on anindependent computer workstation. 90cc Omnipaque 370 injected. Scan wasanalyzed using [employer] based computer aided triage software. Total DLP: 2730 mGy/cm COMPARISON: No priors available. FINDINGS: Noncon Brain: Cerebral hemispheres are symmetric without evidence for mass, hemorrhageor CT evidence for acute territorial infarct. CTA Neck: There is a left-sided aortic arch. Great vessels are patent withconventional anatomy. Common carotid and internal carotid arteries arepatent in the neck. Cervical vertebral arteries are patent. Visualized lung apices are clear. Soft tissues of the neck are normal. CTA Head: Intracranial portions of the internal carotid arteries are patent. Proximal middle and anterior circulation is patent. Vertebrobasilar system is patent. Proximal ell tutor are patent. Major dural venous sinuses opacify normally with contrast. Extracranial structures are unremarkable. Degenerative changes in thebones. IMPRESSION: NO ACUTE INTRACRANIAL ABNORMALITY. -------- FINAL REPORT -------- Dictated By: Brianne Tamez Dictated Date: 04/05/2025 09:27 ET Assigned Physician: Brianne Tamez Reviewed and Electronically Signed By: Brianne Tamez Signed Date: 04/05/2025 09:31 ET Workstation ID: [id number] Transcribed By: Self Edit Transcribed Date: 04/05/2025 09:27 ET us Bobbi De Jesus Anne-Marie PATIENT REGISTRATION CLERK IMG CT PROCEDURES Final R esult * CT Head wo Contrast (04/04/2025 9:21 AM EST) Anatomical Region Laterality Modality Head and Neck Computed Tomogra phy 04/04/2025 9:32 AM EST Impressions 04/04/2025 9:32 AM EST NO ACUTE INTRACRANIAL ABNORMALITY. -------- FINAL REPORT -------- Dictated By: Brianne Tamez Dictated Date: 04/04/2025 09:32 ET Assigned Physician: Brianne Tamez Reviewed and Electronically Signed By: Brianne Tamez Signed Date: 04/04/2025 09:32 ET Workstation ID: [id number] Transcribed By: Self Edit Transcribed Date: 04/04/2025 09:32 ET Narrative 04/04/2025 9:32 AM EST PROCEDURE: HEAD CT INDICATION: dizziness TECHNIQUE: CT of the head without intravenous contrast. Multiplanar reformats. The examination was performed utilizing dose reduction techniques. Total DLP 809 COMPARISON: No priors available. FINDINGS: No acute territorial infarct, mass effect, or intracranial hemorrhage. No significant white matter disease No hydrocephalus. Visualized paranasal sinuses are clear. Mastoid air cells are clear. No calvarial fracture. Procedure Note Brianne Tamez MD - 04/04/2025 PROCEDURE: HEAD CT INDICATION: dizziness TECHNIQUE: CT of the head without intravenous contrast. Multiplanarreformats. The examination was performed utilizing dose reductiontechniques. Total DLP 809 COMPARISON: No priors available. FINDINGS: No acute territorial infarct, mass effect, or intracranial hemorrhage. No significant white matter disease No hydrocephalus. Visualized paranasal sinuses are clear. Mastoid air cells are clear. No calvarial fracture. IMPRESSION: NO ACUTE INTRACRANIAL ABNORMALITY. -------- FINAL REPORT -------- Dictated By: Brianne Tamez Dictated Date: 04/04/2025 09:32 ET Assigned Physician: Brianne Tamez Reviewed and Electronically Signed By: Brianne Tamez Signed Date: 04/04/2025 09:32 ET Workstation ID: [id number] Transcribed By: Self Edit Transcribed Date: 04/04/2025 09:32 ET Luis F Quan MD IMG CT PROCEDURES Final Result * Troponin I High Sensitivity (04/04/2025 8:57 AM EST) Only the most recent of3 resultswithin the time period is included. High Sensitivity Troponin I 12 <=54 ng/L LAB CHEMISTRY METHOD 04/04/2025 11:03 AM EST [facility] Blood Venous blood specimen / Unknown Venipuncture / Unknown 04/04/2025 8:57 AM EST 04/04/2025 10:31 AM EST Narrative [facility] - 04/04/2025 11:03 AM EST High levels of biotin in samples may falsely decrease hsTroponin values. Use caution when interpreting hsTroponin results in patients taking biotin who exhibit renal impairment (eGFR <60) or in patients taking more than 20 mg/day of biotin. Luis F Quan MD LAB BLOOD ORDERABLES Final Res ult [facility] [address] [place] [address], [place] [phone] * Magnesium (04/04/2025 8:57 AM EST) Only the most recent of2 resultswithin the time period is included. Pathologist [facility] Magnesium 1.9 1.9 - 2.6 mg/dL LAB CHEMISTRY METHOD 04/04/2025 11:03 AM EST [facility] Blood Venous blood specimen / Unknown Venipuncture / Unknown 04/04/2025 8:57 AM EST 04/04/2025 10:31 AM EST us Luis F Quan MD LAB BLOOD ORDERABLES Final Res ult [facility] [address] [place] [address], * (ABNORMAL) Comprehensive Metabolic Panel (CMP) (04/04/2025 8:57 AM EST) Only the most recent of5 resultswithin the time period is included. Sodium 137 133 - 145 mmol/L LAB CHEMISTRY METHOD 04/04/2025 11:06 AM [facility] Potassium 4.4 3.5 - 5.5 mmol/L LAB CHEMISTRY METHOD 04/04/2025 11:06 AM [facility] Chloride 104 96 - 110 mmol/L LAB CHEMISTRY METHOD 04/04/2025 11:06 AM [facility] CO2 24 21 - 32 mmol/L LAB CHEMISTRY METHOD 04/04/2025 11:06 AM [facility] Anion Gap 9 3 - 11 LAB CHEMISTRY METHOD 04/04/2025 11:06 AM [facility] Glucose 90 70 - 100 mg/dL LAB CHEMISTRY METHOD 04/04/2025 11:06 AM [facility] BUN 25 5 - 25 mg/dL LAB CHEMISTRY METHOD 04/04/2025 11:06 AM [facility] Creatinine 1.14(H) 0.50 - 1.10 mg/dL LAB CHEMISTRY METHOD 04/04/2025 11:06 AM [facility] eGFR 55(L) >=60 mL/min/1. 73m2 LAB CHEMISTRY METHOD 04/04/2025 11:06 AM [facility] Comment:Calculation based on the Chronic Kidney Disease Epidemiology Collaboration (CKD-EPI) equation refit without adjustment for race. BUN/Creatinine Ratio 21.9 LAB CHEMISTRY METHOD 04/04/2025 11:06 AM [facility] Calcium 9.5 8.5 - 10.5 mg/dL LAB CHEMISTRY METHOD 04/04/2025 11:06 AM [facility] AST (SGOT) 22 10 - 42 unit/L LAB CHEMISTRY METHOD 04/04/2025 11:06 AM [facility] ALT (SGPT) 27 10 - 60 unit/L LAB CHEMISTRY METHOD 04/04/2025 11:06 AM [facility] Alkaline Phosphatase 59 42 - 121 unit/L LAB CHEMISTRY METHOD 04/04/2025 11:06 AM [facility] Total Protein 7.1 6.0 - 8.0 g/dL LAB CHEMISTRY METHOD 04/04/2025 11:06 AM [facility] Albumin 3.7 3.2 - 5.0 g/dL LAB CHEMISTRY METHOD 04/04/2025 11:06 AM [facility] Total Bilirubin 0.6 0.0 - 1.4 mg/dL LAB CHEMISTRY METHOD 04/04/2025 11:06 AM [facility] Blood Venous blood specimen / Unknown Venipuncture / Unknown 04/04/2025 8:57 AM EST 04/04/2025 10:31 AM EST us Luis F Quan MD LAB BLOOD ORDERABLES Final Res ult [facility] [address] [place] [address], * Intrinsic factor blocking antibody (04/02/2025 8:41 AM EST) Intrinsic Factor Blocking Antibody Negative Negative 04/06/2025 10:47 PM EST [facility] Comment: Positive in 50% of persons with pernicious anemia. Very high serum levels of vitamin B12 may give false positive results for intrinsic factor antibody. No sample should be collected from a patient who has received vitamin B12 injection therapy within the past week. Test performed at [facility], [address], [place] [address] Felisa Castillo MD, PhD - [employer] Blood Venous blood specimen / Unknown Venipuncture / Unknown 04/02/2025 8:41 AM EST 04/02/2025 9:32 AM EST Tiara Doyle PATIENT REGISTRATION CLERK LAB BLOOD ORDERABLES Final Resu lt [facility] [address] [place] [address] * Anti-parietal antibody (04/02/2025 8:41 AM EST) Gastric Parietal Cell Ab 1.8 <=20 UNITS 04/10/2025 12:06 PM EST [facility] Comment: Interpretation: Negative Test performed at [facility], [address] , [place] [address] Felisa Castillo MD, PhD - [employer] Blood Venous blood specimen / Unknown Venipuncture / Unknown 04/02/2025 8:41 AM EST 04/02/2025 9:31 AM EST Tiara Doyle PATIENT REGISTRATION CLERK LAB BLOOD ORDERABLES Final Resu lt Performing Organization Address City/[facility]/ZIP Co de Phone Number [facility] [address] [place] [address] * hCG, serum, qualitative (03/19/2025 6:19 AM EDT) hCG Qual Negative Negative 03/19/2025 8:02 AM EDT [facility] Blood Venous blood specimen / Unknown Venipuncture / Unknown 03/19/2025 6:19 AM EDT 03/19/2025 6:28 AM EDT Micheal DORAN LAB BLOOD ORDERABLES Final Result [facility] ([facility] [address] [place] [address], [place] [phone] * B-type natriuretic peptide (03/19/2025 6:19 AM EDT) BNP 63 <=100 pcg/mL LAB CHEMISTRY METHOD 03/19/2025 7:35 AM EDT [facility] Blood Venous blood specimen / Unknown Venipuncture / Unknown 03/19/2025 6:19 AM EDT 03/19/2025 6:28 AM EDT Ori Yadav MD LAB BLOOD ORDERABLES Final Resu lt Performing Organization Address [facility]/ZIP Co de Phone Number [facility] [address] [place] [address], [place] [phone] * Lipase (03/19/2025 6:19 AM EDT) Lipase 44 13 - 75 unit/L LAB CHEMISTRY METHOD 03/19/2025 7:01 AM EDT [facility] Blood Venous blood specimen / Unknown Venipuncture / Unknown 03/19/2025 6:19 AM EDT 03/19/2025 6:28 AM EDT Ori Yadav MD LAB BLOOD ORDERABLES Final Resu lt Performing Organization Address [facility]/ZIP Co de Phone Number [facility] [address] [place] [address], [place] [phone] * XR Chest 2 Views (03/19/2025 6:12 AM EDT) Anatomical Region Laterality Modality Body Radiographic Rashmi ging 03/19/2025 8:42 AM EDT Impressions 03/19/2025 8:44 AM EDT No evidence of active pulmonary disease. No significant change from the prior study. -------- FINAL REPORT -------- Dictated By: Saturnino Diego Dictated Date: 03/19/2025 08:42 ET Assigned Physician: Saturnino Diego Reviewed and Electronically Signed By: Saturnino Diego Signed Date: 03/19/2025 08:44 ET Workstation ID: [id number] Transcribed By: Self Edit Transcribed Date: 03/19/2025 08:42 ET Narrative 03/19/2025 8:44 AM EDT INDICATION: Chest pain FINDINGS: Two views of the chest were obtained. Compared to multiple prior studies most recent from November 05, 2021. Lung mariano are clear. Cardiomediastinal silhouette is normal in size and shape. Bony structures are within normal limits for the patient's age. Similar Port-A-Cath with tip in the mid SVC. Procedure Note Saturnino Diego MD - 03/19/2025 INDICATION: Chest pain FINDINGS: Two views of the chest were obtained. Compared to multiple priorstudies most recent from November 05, 2021. Lung mariano are clear. Cardiomediastinal silhouette is normal in size and shape. Bony structures are within normal limits for the patient's age. Similar Port-A-Cath with tip in the mid SVC. IMPRESSION: No evidence of active pulmonary disease. No significant change from theprior study. -------- FINAL REPORT -------- Dictated By: Saturnino Diego Dictated Date: 03/19/2025 08:42 ET Assigned Physician: Saturnino Diego Reviewed and Electronically Signed By: Saturnino Diego Signed Date: 03/19/2025 08:44 ET Workstation ID: [id number] Transcribed By: Self Edit Transcribed Date: 03/19/2025 08:42 ET us Ori Yadav MD IMG XR PROCEDURES Final Result * Cancer antigen 27-29 (03/05/2025 9:43 AM EDT) Only the most recent of2 resultswithin the time period is included. CA 27.29 26.9 <38.6 U/mL 03/09/2025 1:23 PM EDT [facility] Comment: The Siemens [employer] [id number] Chemiluminescent Immunoassay is used. Results obtained with different assay methods or kits cannot be used interchangeably. Results cannot be interpreted as absolute evidence of the presence or absence of malignant disease. Test performed at [facility], [address] , [place] [address] Felisa Castillo MD, PhD - [employer] Blood Blood sample taken from central line / Unknown Existing Catheter / Unknown 03/05/2025 9:43 AM EDT 03/05/2025 10:01 AM EDT Oswald Souza MD LAB BLOOD ORDERABLES Final R esult [facility] [address] [place] [address] * Cancer antigen 15-3 (03/05/2025 9:43 AM EDT) Only the most recent of2 resultswithin the time period is included. CA 15-3 16 <32 U/mL 03/10/2025 7:37 PM EDT [facility] Comment: This test was performed using the Siemens Chemiluminescent method. Values obtained from different assay methods cannot be used interchangeably. CA 15-3 levels, regardless of value, should not be interpreted as absolute evidence of the presence or absence of disease. Test Performed at: [facility] [address] [address] Joseph Singh MD, PhD, [place] Blood Blood sample taken from central line / Unknown Existing Catheter / Unknown 03/05/2025 9:43 AM EDT 03/05/2025 10:01 AM EDT Oswald Souza MD LAB BLOOD ORDERABLES Final R esult [facility] [address] [place] [address] * US Breast Limited Left (03/04/2025 4:23 PM EDT) Anatomical Region Laterality Modality Breast Left Ultrasound 03/04/2025 3:43 PM EDT Impressions 03/04/2025 4:31 PM EDT Complex case. The imaging findings and clinical scenario are challenging to correlate and diagnose There has been bilateral breast surgery. The patient has been treated for metastatic breast cancer by medical oncology. At the biopsy site marker in the 7 o'clock position there is some residual tissue but there is no measurable mass by ultrasound. There is no measurable mass surrounding the immediate vicinity of the wing- shaped marker in the axilla. There are 2 irregular high density masses in the axilla on mammography which correlate to irregular hypoechoic sound attenuating areas of altered echotexture on ultrasound. These 2 findings are nonspecific. This could be related to posttreatment fibrosis but the exact etiology cannot be determined by imaging alone. I had a long (greater than 30 minutes) discussion with the patient. We reviewed the findings. We reviewed potential management options. Ultimately a decision to intervene would depend upon how it might alter patient management. The patient desires consultation at the [facility] [place]. We will make images and reports available. I recommend the patient consult with Dr. Souza to determine if ultrasound- guided sampling in the axilla would add clinical value. The patient postulates that sampling might identify a 3rd area of cancer or a change in the cancer morphology/molecular features. A short interval follow-up mammogram and ultrasound in 6 months would determine if there is any aggressive interval changes. ASSESSMENT: BI-RADS 3: PROBABLY BENIGN History of known biopsy-proven left breast cancer treated by medical oncology. The areas in the axilla would be amenable to sampling if it would alter patient management. Specifically, it is technically possible. I shared with the patient my opinion that short interval follow-up imaging is a reasonable option. The patient will consult with her breast care team to determine next appropriate steps RECOMMENDATION(S): 1: Clinical correlation recommended LEFT [facility] [address], [address] -------- FINAL REPORT -------- Dictated By: Marco Ortiz Dictated Date: 03/04/2025 15:43 ET Assigned Physician: Marco Ortiz Reviewed and Electronically Signed By: Marco Ortiz Signed Date: 03/04/2025 16:31 ET Workstation ID: [id number] Transcribed By: Self Edit Transcribed Date: 03/04/2025 15:51 ET Narrative 03/04/2025 4:31 PM EDT EXAM: DIAGNOSTIC MAMMOGRAPHY, BILATERAL ULTRASOUND: DIAGNOSTIC ULTRASOUND, UNILATERAL LEFT HISTORY: Hormone positive metastatic breast cancer. The patient has been treated with medical therapy. The patient reports having had lumpectomy. The report of ultrasound guided biopsy 06/14/21 includes the need for moderate sedation including IV FENTANYL and VERSED. The report at the time of biopsy indicates preliminary scanning in the 7 o'clock region at the time of biopsy 1 cm from the nipple a mass measures 2.4 x 2.5 x 2.7 cm The report at the time of biopsy indicates preliminary scanning of the axillary mass reportedly measured 3.5 x 4.0 x 5.2 cm. The biopsy report indicates a ribbon-shaped marker was placed at the site of biopsy in the anterior inferior left breast mass. The report of the biopsy indicates an axillary tail spiculated mass was sampled and a wing-shaped tissue marker was placed. There is no evidence of a post procedure mammogram having been performed. The patient reports having had ductectomy. The breast MRI report indicates previous bilateral excisional biopsies (right breast microcalcifications 2013 and left breast excisional biopsy 2001) COMPARISON: The most recent mammogram available 06/07/21 Brief targeted review of portions of MRI 05/05/21. TECHNIQUE: Synthesized CC and MLO projections of each breast. Tomosynthesis of each breast in the CC and MLO projections. ADDITIONAL IMAGING: None High-frequency linear transducer ultrasound of the left breast targeted to the area(s) of clinical concern. Computer-aided detection was employed with the [employer] 3-D. TISSUE DENSITY: The breasts are heterogeneously dense, which may obscure small masses. (BI-RADS category C) FINDINGS: MAMMOGRAPHY: RIGHT BREAST: The architecture is unchanged. Distortion in the anterior slightly outer right breast is likely related to prior excision. There is an asymmetry in the medial breast which is unchanged. There is a reservoir associated with the vascular catheter which obscures some of the anatomy. No definite new suspicious right breast finding. LEFT BREAST: There is a vague area of fibroglandular tissue in the region of the ribbon- shaped biopsy site marker in the 7 o'clock position 6 cm from the left nipple. This is somewhat less prominent than 2021. There is architectural distortion consistent with prior excision. There is a wing-shaped tissue marker in the axilla which has a nearby nonenlarged lymph node. There are 2 irregular hypodensities in the axilla. I cannot confirm stability. The larger measures approximately 1 cm. ULTRASOUND: LEFT BREAST 7 o'clock position, 1 cm from left nipple There is no discrete measurable mass. The biopsy site marker is not discretely identified. This correlates to the area of original biopsy-proven malignancy. 5 o'clock position, 1 cm from left nipple Scar region There is irregular altered echotexture and a homogeneous hypoechoic round area. This correlates to area of remote excision. Left axilla Area of pain There is an irregular hypoechoic area of altered echotexture with attenuation of sound. This measures up to 1.1 cm and likely correlates to the high density irregular finding on the mammogram. I cannot distinguish fibrosis and posttreatment change from recurrent or residual disease. There is an adjacent smaller area of altered echotexture with similar features measuring approximately 0.6 cm. This likely correlates to the smaller abnormality on the mammogram. Procedure Note Marco Ortiz MD - 03/04/2025 EXAM: DIAGNOSTIC MAMMOGRAPHY, BILATERAL ULTRASOUND: DIAGNOSTIC ULTRASOUND, UNILATERAL LEFT HISTORY: Hormone positive metastatic breast cancer. The patient has beentreated with medical therapy. The patient reports having had lumpectomy. The report of ultrasound guided biopsy 06/14/21 includes the need formoderate sedation including IV FENTANYL and VERSED. The report at the time of biopsy indicates preliminary scanning in the 7o'clock region at the time of biopsy 1 cm from the nipple a mass measures2.4 x 2.5 x 2.7 cm The report at the time of biopsy indicates preliminary scanning of theaxillary mass reportedly measured 3.5 x 4.0 x 5.2 cm. The biopsy report indicates a ribbon-shaped marker was placed at the siteof biopsy in the anterior inferior left breast mass. The report of the biopsy indicates an axillary tail spiculated mass wassampled and a wing-shaped tissue marker was placed. There is no evidence of a post procedure mammogram having beenperformed. The patient reports having had ductectomy. The breast MRI report indicates previous bilateral excisional biopsies(right breast microcalcifications 2013 and left breast excisional [id number]) COMPARISON: The most recent mammogram available 06/07/21 Brief targeted review of portions of MRI 05/05/21. TECHNIQUE: Synthesized CC and MLO projections of each breast.Tomosynthesis of each breast in the CC and MLO projections. ADDITIONAL IMAGING: None High-frequency linear transducer ultrasound of the left breast targeted tothe area(s) of clinical concern. Computer-aided detection was employed with the [employer] 3-D. TISSUE DENSITY: The breasts are heterogeneously dense, which may obscuresmall masses. (BI-RADS category C) FINDINGS: MAMMOGRAPHY: RIGHT BREAST: The architecture is unchanged. Distortion in the anterior slightly outerright breast is likely related to prior excision. There is an asymmetryin the medial breast which is unchanged. There is a reservoir associatedwith the vascular catheter which obscures some of the anatomy. No definite new suspicious right breast finding. LEFT BREAST: There is a vague area of fibroglandular tissue in the region of theribbon-shaped biopsy site marker in the 7 o'clock position 6 cm from theleft nipple. This is somewhat less prominent than 2021. There is architectural distortion consistent with prior excision. There is a wing-shaped tissue marker in the axilla which has a nearbynonenlarged lymph node. There are 2 irregular hypodensities in the axilla. I cannot confirmstability. The larger measures approximately 1 cm. ULTRASOUND: LEFT BREAST 7 o'clock position, 1 cm from left nipple There is no discrete measurable mass. The biopsy site marker is notdiscretely identified. This correlates to the area of original biopsy-proven malignancy. 5 o'clock position, 1 cm from left nipple Scar region There is irregular altered echotexture and a homogeneous hypoechoic roundarea. This correlates to area of remote excision. Left axilla Area of pain There is an irregular hypoechoic area of altered echotexture withattenuation of sound. This measures up to 1.1 cm and likely correlates to the high densityirregular finding on the mammogram. I cannot distinguish fibrosis andposttreatment change from recurrent or residual disease. There is an adjacent smaller area of altered echotexture with similarfeatures measuring approximately 0.6 cm. This likely correlates to the smaller abnormality on the mammogram. IMPRESSION: Complex case. The imaging findings and clinical scenario are challenging to correlateand diagnose There has been bilateral breast surgery. The patient has been treated for metastatic breast cancer by medicaloncology. At the biopsy site marker in the 7 o'clock position there is some residualtissue but there is no measurable mass by ultrasound. There is no measurable mass surrounding the immediate vicinity of thewing-shaped marker in the axilla. There are 2 irregular high density masses in the axilla on mammographywhich correlate to irregular hypoechoic sound attenuating areas of alteredechotexture on ultrasound. These 2 findings are nonspecific. This could be related to posttreatmentfibrosis but the exact etiology cannot be determined by imaging alone. I had a long (greater than 30 minutes) discussion with the patient. Wereviewed the findings. We reviewed potential management options. Ultimately a decision to intervene would depend upon how it might alterpatient management. The patient desires consultation at the [facility] [place]. We will make images and reports available. I recommend the patient consult with Dr. Souza to determine ifultrasound- guided sampling in the axilla would add clinical value. The patient postulates that sampling might identify a 3rd area of canceror a change in the cancer morphology/molecular features. A short interval follow-up mammogram and ultrasound in 6 months woulddetermine if there is any aggressive interval changes. ASSESSMENT: BI-RADS 3: PROBABLY BENIGN History of known biopsy-proven left breast cancer treated by medicaloncology. The areas in the axilla would be amenable to sampling if it would alterpatient management. Specifically, it is technically possible. I shared with the patient my opinion that short interval follow-up imagingis a reasonable option. The patient will consult with her breast care team to determine nextappropriate steps RECOMMENDATION(S): 1: Clinical correlation recommended LEFT [facility] [address], [address] -------- FINAL REPORT -------- Dictated By: Marco Ortiz Dictated Date: 03/04/2025 15:43 ET Assigned Physician: Marco Ortiz Reviewed and Electronically Signed By: Marco Ortiz Signed Date: 03/04/2025 16:31 ET Workstation ID: [id number] Transcribed By: Self Edit Transcribed Date: 03/04/2025 15:51 ET us Oswald Souza MD IMG US PROCEDURES Final Resu lt * MG Mammo Digital Diagnostic w Dago bilat (03/04/2025 3:31 PM EDT) Anatomical Region Laterality Modality Breast Bilateral Mammography 03/04/2025 3:43 PM EDT Impressions 03/04/2025 4:31 PM EDT Complex case. The imaging findings and clinical scenario are challenging to correlate and diagnose There has been bilateral breast surgery. The patient has been treated for metastatic breast cancer by medical oncology. At the biopsy site marker in the 7 o'clock position there is some residual tissue but there is no measurable mass by ultrasound. There is no measurable mass surrounding the immediate vicinity of the wing- shaped marker in the axilla. There are 2 irregular high density masses in the axilla on mammography which correlate to irregular hypoechoic sound attenuating areas of altered echotexture on ultrasound. These 2 findings are nonspecific. This could be related to posttreatment fibrosis but the exact etiology cannot be determined by imaging alone. I had a long (greater than 30 minutes) discussion with the patient. We reviewed the findings. We reviewed potential management options. Ultimately a decision to intervene would depend upon how it might alter patient management. The patient desires consultation at the [facility] [place]. We will make images and reports available. I recommend the patient consult with Dr. Souza to determine if ultrasound- guided sampling in the axilla would add clinical value. The patient postulates that sampling might identify a 3rd area of cancer or a change in the cancer morphology/molecular features. A short interval follow-up mammogram and ultrasound in 6 months would determine if there is any aggressive interval changes. ASSESSMENT: BI-RADS 3: PROBABLY BENIGN History of known biopsy-proven left breast cancer treated by medical oncology. The areas in the axilla would be amenable to sampling if it would alter patient management. Specifically, it is technically possible. I shared with the patient my opinion that short interval follow-up imaging is a reasonable option. The patient will consult with her breast care team to determine next appropriate steps RECOMMENDATION(S): 1: Clinical correlation recommended LEFT [facility]amm[facility] [address], [address] -------- FINAL REPORT -------- Dictated By: Marco Ortiz Dictated Date: 03/04/2025 15:43 ET Assigned Physician: Marco Ortiz Reviewed and Electronically Signed By: Marco Ortiz Signed Date: 03/04/2025 16:31 ET Workstation ID: [id number] Transcribed By: Self Edit Transcribed Date: 03/04/2025 15:51 ET Narrative 03/04/2025 4:31 PM EDT EXAM: DIAGNOSTIC MAMMOGRAPHY, BILATERAL ULTRASOUND: DIAGNOSTIC ULTRASOUND, UNILATERAL LEFT HISTORY: Hormone positive metastatic breast cancer. The patient has been treated with medical therapy. The patient reports having had lumpectomy. The report of ultrasound guided biopsy 06/14/21 includes the need for moderate sedation including IV FENTANYL and VERSED. The report at the time of biopsy indicates preliminary scanning in the 7 o'clock region at the time of biopsy 1 cm from the nipple a mass measures 2.4 x 2.5 x 2.7 cm The report at the time of biopsy indicates preliminary scanning of the axillary mass reportedly measured 3.5 x 4.0 x 5.2 cm. The biopsy report indicates a ribbon-shaped marker was placed at the site of biopsy in the anterior inferior left breast mass. The report of the biopsy indicates an axillary tail spiculated mass was sampled and a wing-shaped tissue marker was placed. There is no evidence of a post procedure mammogram having been performed. The patient reports having had ductectomy. The breast MRI report indicates previous bilateral excisional biopsies (right breast microcalcifications 2013 and left breast excisional biopsy 2001) COMPARISON: The most recent mammogram available 06/07/21 Brief targeted review of portions of MRI 05/05/21. TECHNIQUE: Synthesized CC and MLO projections of each breast. Tomosynthesis of each breast in the CC and MLO projections. ADDITIONAL IMAGING: None High-frequency linear transducer ultrasound of the left breast targeted to the area(s) of clinical concern. Computer-aided detection was employed with the [employer] 3-D. TISSUE DENSITY: The breasts are heterogeneously dense, which may obscure small masses. (BI-RADS category C) FINDINGS: MAMMOGRAPHY: RIGHT BREAST: The architecture is unchanged. Distortion in the anterior slightly outer right breast is likely related to prior excision. There is an asymmetry in the medial breast which is unchanged. There is a reservoir associated with the vascular catheter which obscures some of the anatomy. No definite new suspicious right breast finding. LEFT BREAST: There is a vague area of fibroglandular tissue in the region of the ribbon- shaped biopsy site marker in the 7 o'clock position 6 cm from the left nipple. This is somewhat less prominent than 2021. There is architectural distortion consistent with prior excision. There is a wing-shaped tissue marker in the axilla which has a nearby nonenlarged lymph node. There are 2 irregular hypodensities in the axilla. I cannot confirm stability. The larger measures approximately 1 cm. ULTRASOUND: LEFT BREAST 7 o'clock position, 1 cm from left nipple There is no discrete measurable mass. The biopsy site marker is not discretely identified. This correlates to the area of original biopsy-proven malignancy. 5 o'clock position, 1 cm from left nipple Scar region There is irregular altered echotexture and a homogeneous hypoechoic round area. This correlates to area of remote excision. Left axilla Area of pain There is an irregular hypoechoic area of altered echotexture with attenuation of sound. This measures up to 1.1 cm and likely correlates to the high density irregular finding on the mammogram. I cannot distinguish fibrosis and posttreatment change from recurrent or residual disease. There is an adjacent smaller area of altered echotexture with similar features measuring approximately 0.6 cm. This likely correlates to the smaller abnormality on the mammogram. Procedure Note Marco Ortiz MD - 03/04/2025 EXAM: DIAGNOSTIC MAMMOGRAPHY, BILATERAL ULTRASOUND: DIAGNOSTIC ULTRASOUND, UNILATERAL LEFT HISTORY: Hormone positive metastatic breast cancer. The patient has beentreated with medical therapy. The patient reports having had lumpectomy. The report of ultrasound guided biopsy 06/14/21 includes the need formoderate sedation including IV FENTANYL and VERSED. The report at the time of biopsy indicates preliminary scanning in the 7o'clock region at the time of biopsy 1 cm from the nipple a mass measures2.4 x 2.5 x 2.7 cm The report at the time of biopsy indicates preliminary scanning of theaxillary mass reportedly measured 3.5 x 4.0 x 5.2 cm. The biopsy report indicates a ribbon-shaped marker was placed at the siteof biopsy in the anterior inferior left breast mass. The report of the biopsy indicates an axillary tail spiculated mass wassampled and a wing-shaped tissue marker was placed. There is no evidence of a post procedure mammogram having beenperformed. The patient reports having had ductectomy. The breast MRI report indicates previous bilateral excisional biopsies(right breast microcalcifications 2013 and left breast excisional [id number]) COMPARISON: The most recent mammogram available 06/07/21 Brief targeted review of portions of MRI 05/05/21. TECHNIQUE: Synthesized CC and MLO projections of each breast.Tomosynthesis of each breast in the CC and MLO projections. ADDITIONAL IMAGING: None High-frequency linear transducer ultrasound of the left breast targeted tothe area(s) of clinical concern. Computer-aided detection was employed with the [employer] 3-D. TISSUE DENSITY: The breasts are heterogeneously dense, which may obscuresmall masses. (BI-RADS category C) FINDINGS: MAMMOGRAPHY: RIGHT BREAST: The architecture is unchanged. Distortion in the anterior slightly outerright breast is likely related to prior excision. There is an asymmetryin the medial breast which is unchanged. There is a reservoir associatedwith the vascular catheter which obscures some of the anatomy. No definite new suspicious right breast finding. LEFT BREAST: There is a vague area of fibroglandular tissue in the region of theribbon-shaped biopsy site marker in the 7 o'clock position 6 cm from theleft nipple. This is somewhat less prominent than 2021. There is architectural distortion consistent with prior excision. There is a wing-shaped tissue marker in the axilla which has a nearbynonenlarged lymph node. There are 2 irregular hypodensities in the axilla. I cannot confirmstability. The larger measures approximately 1 cm. ULTRASOUND: LEFT BREAST 7 o'clock position, 1 cm from left nipple There is no discrete measurable mass. The biopsy site marker is notdiscretely identified. This correlates to the area of original biopsy-proven malignancy. 5 o'clock position, 1 cm from left nipple Scar region There is irregular altered echotexture and a homogeneous hypoechoic roundarea. This correlates to area of remote excision. Left axilla Area of pain There is an irregular hypoechoic area of altered echotexture withattenuation of sound. This measures up to 1.1 cm and likely correlates to the high densityirregular finding on the mammogram. I cannot distinguish fibrosis andposttreatment change from recurrent or residual disease. There is an adjacent smaller area of altered echotexture with similarfeatures measuring approximately 0.6 cm. This likely correlates to the smaller abnormality on the mammogram. IMPRESSION: Complex case. The imaging findings and clinical scenario are challenging to correlateand diagnose There has been bilateral breast surgery. The patient has been treated for metastatic breast cancer by medicaloncology. At the biopsy site marker in the 7 o'clock position there is some residualtissue but there is no measurable mass by ultrasound. There is no measurable mass surrounding the immediate vicinity of thewing-shaped marker in the axilla. There are 2 irregular high density masses in the axilla on mammographywhich correlate to irregular hypoechoic sound attenuating areas of alteredechotexture on ultrasound. These 2 findings are nonspecific. This could be related to posttreatmentfibrosis but the exact etiology cannot be determined by imaging alone. I had a long (greater than 30 minutes) discussion with the patient. Wereviewed the findings. We reviewed potential management options. Ultimately a decision to intervene would depend upon how it might alterpatient management. The patient desires consultation at the [facility]. We will make images and reports available. I recommend the patient consult with Dr. Souza to determine ifultrasound- guided sampling in the axilla would add clinical value. The patient postulates that sampling might identify a 3rd area of canceror a change in the cancer morphology/molecular features. A short interval follow-up mammogram and ultrasound in 6 months woulddetermine if there is any aggressive interval changes. ASSESSMENT: BI-RADS 3: PROBABLY BENIGN History of known biopsy-proven left breast cancer treated by medicaloncology. The areas in the axilla would be amenable to sampling if it would alterpatient management. Specifically, it is technically possible. I shared with the patient my opinion that short interval follow-up imagingis a reasonable option. The patient will consult with her breast care team to determine nextappropriate steps RECOMMENDATION(S): 1: Clinical correlation recommended LEFT Mamm[facility] [address], [address] -------- FINAL REPORT -------- Dictated By: Marco Ortiz Dictated Date: 03/04/2025 15:43 ET Assigned Physician: Marco rOtiz Reviewed and Electronically Signed By: Marco Ortiz Signed Date: 03/04/2025 16:31 ET Workstation ID: [id number] Transcribed By: Self Edit Transcribed Date: 03/04/2025 15:51 ET [facility] BI PROCEDURES Final Resu lt * XR Toes 2+ Views Right (02/03/2025 9:21 PM EDT) Anatomical Region Laterality Modality Lower Extremities, Toes Left Radiogra phic Imaging 02/04/2025 9:38 AM EDT Impressions 02/04/2025 9:38 AM EDT FINDINGS/IMPRESSION: Acute, nondisplaced fracture at the distal tuft of the 1st distal phalanx medially with surrounding soft tissue swelling. No additional fractures. Degenerative changes at the 1st metatarsophalangeal joint with mild hallux valgus and overlying bunion. -------- FINAL REPORT -------- Dictated By: DAVID KENDRICK Dictated Date: 02/04/2025 09:38 ET Assigned Physician: DAVID KENDRICK Reviewed and Electronically Signed By: DAVID KENDRICK Signed Date: 02/04/2025 09:38 ET Workstation ID: [id number] Transcribed By: Self Edit Transcribed Date: 02/04/2025 09:38 ET Narrative 02/04/2025 9:38 AM EDT XR TOES 2+ VIEWS RIGHT INDICATION: Pain TECHNIQUE: XR TOES 2+ VIEWS RIGHT COMPARISON: No priors available. Procedure Note David Kendrick MD - 02/04/2025 XR TOES 2+ VIEWS RIGHT INDICATION: Pain TECHNIQUE: XR TOES 2+ VIEWS RIGHT COMPARISON: No priors available. IMPRESSION: FINDINGS/IMPRESSION: Acute, nondisplaced fracture at the distal tuft ofthe 1st distal phalanx medially with surrounding soft tissue swelling. Noadditional fractures. Degenerative changes at the 1st metatarsophalangealjoint with mild hallux valgus and overlying bunion. -------- FINAL REPORT -------- Dictated By: DAVID KENDRICK Dictated Date: 02/04/2025 09:38 ET Assigned Physician: DAVID KENDRICK Reviewed and Electronically Signed By: DAVID KENDRICK Signed Date: 02/04/2025 09:38 ET Workstation ID: [id number] Transcribed By: Self Edit Transcribed Date: 02/04/2025 09:38 ET us Jeimy DORAN IMG XR PROCEDURES Final Result * External Diabetic Retina Eye Exam Report (01/21/2025 3:12 PM EDT) Only the most recent of2 resultswithin the time period is included. Anatomical Region Laterality Modality Ultrasound Historical Provider IMG US PROCEDURES Final R esult * HPV with reflex genotype (07/10/2024 10:52 AM EST) HPV Negative Negative LAB MICROBIOLOGY METHOD 07/11/2024 1:08 PM EST [facility] Brushing/Spatula Cervix uteri structure / Unknown 07/10/2024 10:52 AM EST 07/11/2024 6:59 AM EST Hilda Murillo MD LAB MOLECULAR DIAGNOSTICS O RDERABLES Final Result [facility] [address] [place] [address], from Last 3 Months or Most Recently Relevant to Health Maintenance Additional Health Concerns Active Problems Noted Date Diagnosed Date Autogenerated Problem 04/13/2025 Insurance MEDICARE MEDICAID - [place] Advance Directives Documents on File Type Date 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 Health Care Decision (hx) 07/29/2013 AD ANDREWS DIRECTIVE Health Care Decision (hx) 07/29/2013 AD ANDREWS DIRECTIVE Health Care Decision (hx) 07/29/2013 AD ANDREWS DIRECTIVE Health Care Decision (hx) 07/29/2013 AD ANDREWS DIRECTIVE Health Care Decision (hx) 07/29/2013 AD ANDREWS DIRECTIVE Health Care Decision (hx) 07/29/2013 AD ANDREWS DIRECTIVE Health Care Decision (hx) 07/29/2013 AD ANDREWS DIRECTIVE Health Care Decision (hx) 07/29/2013 AD ANDREWS DIRECTIVE Health Care Decision (hx) 07/29/2013 AD ANDREWS DIRECTIVE Health Care Decision (hx) 07/29/2013 AD ANDREWS DIRECTIVE Health Care Decision (hx) 07/29/2013 AD ANDREWS DIRECTIVE Health Care Decision (hx) 07/29/2013 AD ANDREWS DIRECTIVE Health Care Decision (hx) 07/29/2013 AD ANDREWS DIRECTIVE Health Care Decision (hx) 07/29/2013 AD ANDREWS DIRECTIVE Health Care Decision (hx) 07/29/2013 AD ANDREWS DIRECTIVE Health Care Decision (hx) 07/29/2013 AD ANDREWS DIRECTIVE Health Care Decision (hx) 07/29/2013 AD ANDREWS DIRECTIVE Health Care Decision (hx) 07/29/2013 AD ANDREWS DIRECTIVE Health Care Decision (hx) 07/29/2013 AD ANDREWS DIRECTIVE Health Care Decision (hx) 07/29/2013 AD ANDREWS DIRECTIVE Health Care Decision (hx) 07/29/2013 AD ANDREWS DIRECTIVE Health Care Decision (hx) 07/29/2013 AD ANDREWS DIRECTIVE Health Care Decision (hx) 07/29/2013 AD ANDREWS DIRECTIVE Health Care Decision (hx) 07/29/2013 AD ANDREWS DIRECTIVE Health Care Decision (hx) 07/29/2013 AD ANDREWS DIRECTIVE Health Care Decision (hx) 07/29/2013 AD ANDREWS DIRECTIVE Health Care Decision (hx) 07/29/2013 AD ANDREWS DIRECTIVE Health Care Decision (hx) 07/29/2013 AD ANDREWS DIRECTIVE Health Care Decision (hx) 07/29/2013 AD ANDREWS DIRECTIVE Health Care Decision (hx) 07/29/2013 AD ANDREWS DIRECTIVE Health Care Decision (hx) 07/29/2013 AD ANDREWS DIRECTIVE Health Care Decision (hx) 07/29/2013 AD ANDREWS DIRECTIVE Health Care Decision (hx) 07/29/2013 AD ANDREWS DIRECTIVE Health Care Decision (hx) 07/29/2013 AD ANDREWS DIRECTIVE Health Care Decision (hx) 07/29/2013 AD ANDREWS DIRECTIVE Health Care Decision (hx) 07/29/2013 AD ANDREWS DIRECTIVE Health Care Decision (hx) 07/29/2013 AD ANDREWS DIRECTIVE Health Care Decision (hx) 07/29/2013 AD ANDREWS DIRECTIVE Health Care Decision (hx) 07/29/2013 AD ANDREWS DIRECTIVE Health Care Decision (hx) 07/29/2013 AD ANDREWS DIRECTIVE Health Care Decision (hx) 07/29/2013 AD ANDREWS DIRECTIVE Health Care Decision (hx) 07/29/2013 AD ANDREWS DIRECTIVE Health Care Decision (hx) 07/29/2013 AD ANDREWS DIRECTIVE Health Care Decision (hx) 07/29/2013 AD ANDREWS DIRECTIVE Health Care Decision (hx) 07/29/2013 AD ANDREWS DIRECTIVE Health Care Decision (hx) 07/29/2013 AD ANDREWS DIRECTIVE Health Care Decision (hx) 07/29/2013 AD ANDREWS DIRECTIVE Health Care Decision (hx) 07/29/2013 AD ANDREWS DIRECTIVE Health Care Decision (hx) 07/29/2013 AD ANDREWS DIRECTIVE Health Care Decision (hx) 07/29/2013 AD ANDREWS DIRECTIVE Health Care Decision (hx) 07/29/2013 AD ANDREWS DIRECTIVE Health Care Decision (hx) 07/29/2013 AD ANDREWS DIRECTIVE Health Care Decision (hx) 07/29/2013 AD ANDREWS DIRECTIVE Health Care Decision (hx) 07/29/2013 AD ANDREWS DIRECTIVE Health Care Decision (hx) 07/29/2013 AD ANDREWS DIRECTIVE Health Care Decision (hx) 07/29/2013 AD ANDREWS DIRECTIVE Health Care Decision (hx) 07/29/2013 AD ANDREWS DIRECTIVE Health Care Decision (hx) 07/29/2013 AD ANDREWS DIRECTIVE Health Care Decision (hx) 07/29/2013 AD ANDREWS DIRECTIVE Health Care Decision (hx) 07/29/2013 AD ANDREWS DIRECTIVE Health Care Decision (hx) 07/29/2013 AD ANDREWS DIRECTIVE Health Care Decision (hx) 07/29/2013 AD ANDREWS DIRECTIVE Health Care Decision (hx) 07/29/2013 AD ANDREWS DIRECTIVE Health Care Decision (hx) 07/29/2013 AD ANDRESW DIRECTIVE Health Care Decision (hx) 07/29/2013 AD ANDREWS DIRECTIVE Health Care Decision (hx) 07/29/2013 AD ANDREWS DIRECTIVE Health Care Decision (hx) 07/29/2013 AD ANDREWS DIRECTIVE Health Care Decision (hx) 07/29/2013 AD ANDREWS DIRECTIVE Health Care Decision (hx) 07/29/2013 AD ANDREWS DIRECTIVE Health Care Decision (hx) 07/29/2013 AD ANDREWS DIRECTIVE Health Care Decision (hx) 07/29/2013 AD ANDREWS DIRECTIVE Health Care Decision (hx) 07/29/2013 AD ANDREWS DIRECTIVE Health Care Decision (hx) 07/29/2013 AD ANDREWS DIRECTIVE Health Care Decision (hx) 07/29/2013 AD ANDREWS DIRECTIVE Health Care Decision (hx) 07/29/2013 AD ANDREWS DIRECTIVE Health Care Decision (hx) 07/29/2013 AD ANDREWS DIRECTIVE Health Care Decision (hx) 07/29/2013 AD ANDREWS DIRECTIVE Health Care Decision (hx) 07/29/2013 AD ANDREWS DIRECTIVE Health Care Decision (hx) 07/29/2013 AD ANDREWS DIRECTIVE Health Care Decision (hx) 07/29/2013 AD ANDREWS DIRECTIVE Health Care Decision (hx) 07/29/2013 AD ANDREWS DIRECTIVE Health Care Decision (hx) 07/29/2013 AD ANDREWS DIRECTIVE Health Care Decision (hx) 07/29/2013 AD ANDREWS DIRECTIVE Health Care Decision (hx) 07/29/2013 AD ANDREWS DIRECTIVE Health Care Decision (hx) 07/29/2013 AD ANDREWS DIRECTIVE Health Care Decision (hx) 07/29/2013 AD ANDREWS DIRECTIVE Health Care Decision (hx) 07/29/2013 AD ANDREWS DIRECTIVE Health Care Decision (hx) 07/29/2013 AD ANDREWS DIRECTIVE Health Care Decision (hx) 07/29/2013 AD ANDREWS DIRECTIVE Health Care Decision (hx) 07/29/2013 AD ANDREWS DIRECTIVE Health Care Decision (hx) 07/29/2013 AD ANDREWS DIRECTIVE Health Care Decision (hx) 07/29/2013 Sharla Carroll AD ANDREWS DIRECTIVE Health Care Decision (hx) 07/21/2013 AD ANDREWS DIRECTIVE Health Care Decision (hx) 07/21/2013 AD ANDREWS DIRECTIVE Health Care Decision (hx) 07/21/2013 AD ANDREWS DIRECTIVE Health Care Decision (hx) 07/21/2013 AD ANDREWS DIRECTIVE Health Care Decision (hx) 07/21/2013 AD ANDREWS DIRECTIVE Health Care Decision (hx) 07/21/2013 AD ANDREWS DIRECTIVE Health Care Decision (hx) 07/21/2013 AD ANDREWS DIRECTIVE Health Care Decision (hx) 07/21/2013 AD ANDREWS DIRECTIVE Health Care Decision (hx) 07/21/2013 AD ANDREWS DIRECTIVE Health Care Decision (hx) 07/21/2013 AD ANDREWS DIRECTIVE Health Care Decision (hx) 07/21/2013 AD ANDREWS DIRECTIVE Health Care Decision (hx) 07/21/2013 AD ANDREWS DIRECTIVE Health Care Decision (hx) 07/21/2013 AD ANDREWS DIRECTIVE Health Care Decision (hx) 07/21/2013 AD ANDREWS DIRECTIVE Health Care Decision (hx) 07/21/2013 AD ANDREWS DIRECTIVE Health Care Decision (hx) 07/21/2013 AD ANDREWS DIRECTIVE Health Care Decision (hx) 07/21/2013 AD ANDREWS DIRECTIVE Health Care Decision (hx) 07/21/2013 AD ANDREWS DIRECTIVE Health Care Decision (hx) 07/21/2013 AD ANDREWS DIRECTIVE Health Care Decision (hx) 07/21/2013 AD ANDREWS DIRECTIVE Health Care Decision (hx) 07/21/2013 AD ANDREWS DIRECTIVE Health Care Decision (hx) 07/21/2013 AD ANDREWS DIRECTIVE Health Care Decision (hx) 07/21/2013 AD ANDREWS DIRECTIVE Health Care Decision (hx) 07/21/2013 AD ANDREWS DIRECTIVE Health Care Decision (hx) 07/21/2013 AD ANDREWS DIRECTIVE Health Care Decision (hx) 07/21/2013 AD ANDREWS DIRECTIVE Health Care Decision (hx) 07/21/2013 AD ANDREWS DIRECTIVE Health Care Decision (hx) 07/21/2013 AD ANDREWS DIRECTIVE Health Care Decision (hx) 07/21/2013 AD ANDREWS DIRECTIVE Health Care Decision (hx) 07/21/2013 AD ANDREWS DIRECTIVE Health Care Decision (hx) 07/21/2013 AD ANDREWS DIRECTIVE Health Care Decision (hx) 07/21/2013 AD ANDREWS DIRECTIVE Health Care Decision (hx) 07/21/2013 AD ANDREWS DIRECTIVE Health Care Decision (hx) 07/21/2013 AD ANDREWS DIRECTIVE Health Care Decision (hx) 07/21/2013 AD ANDREWS DIRECTIVE Health Care Decision (hx) 07/21/2013 AD ANDREWS DIRECTIVE Health Care Decision (hx) 07/21/2013 AD ANDREWS DIRECTIVE Health Care Decision (hx) 07/21/2013 AD ANDREWS DIRECTIVE Health Care Decision (hx) 07/21/2013 AD ANDREWS DIRECTIVE Health Care Decision (hx) 07/21/2013 AD ANDREWS DIRECTIVE Health Care Decision (hx) 07/21/2013 AD ANDREWS DIRECTIVE Health Care Decision (hx) 07/21/2013 AD ANDREWS DIRECTIVE Health Care Decision (hx) 07/21/2013 AD ANDREWS DIRECTIVE Health Care Decision (hx) 07/21/2013 AD ANDREWS DIRECTIVE Health Care Decision (hx) 07/21/2013 AD ANDREWS DIRECTIVE Health Care Decision (hx) 07/21/2013 AD ANDREWS DIRECTIVE Health Care Decision (hx) 07/21/2013 AD ANDREWS DIRECTIVE Health Care Decision (hx) 07/21/2013 AD ANDREWS DIRECTIVE Health Care Decision (hx) 07/21/2013 AD ANDREWS DIRECTIVE Health Care Decision (hx) 07/21/2013 AD ANDREWS DIRECTIVE Health Care Decision (hx) 07/21/2013 AD ANDREWS DIRECTIVE Health Care Decision (hx) 07/21/2013 AD ANDREWS DIRECTIVE Health Care Decision (hx) 07/21/2013 AD ANDREWS DIRECTIVE Health Care Decision (hx) 07/21/2013 AD ANDREWS DIRECTIVE Health Care Decision (hx) 07/21/2013 AD ANDREWS DIRECTIVE Health Care Decision (hx) 07/21/2013 AD ANDREWS DIRECTIVE Health Care Decision (hx) 07/21/2013 AD ANDREWS DIRECTIVE Health Care Decision (hx) 07/21/2013 AD ANDREWS DIRECTIVE Health Care Decision (hx) 07/21/2013 AD ANDREWS DIRECTIVE Health Care Decision (hx) 07/21/2013 AD ANDREWS DIRECTIVE Health Care Decision (hx) 07/21/2013 AD ANDREWS DIRECTIVE Health Care Decision (hx) 07/21/2013 AD ANDREWS DIRECTIVE Health Care Decision (hx) 07/21/2013 AD ANDREWS DIRECTIVE Health Care Decision (hx) 07/21/2013 AD ANDREWS DIRECTIVE Health Care Decision (hx) 07/21/2013 AD ANDREWS DIRECTIVE Health Care Decision (hx) 07/21/2013 AD ANDREWS DIRECTIVE Health Care Decision (hx) 07/21/2013 AD ANDREWS DIRECTIVE Health Care Decision (hx) 07/21/2013 AD ANDREWS DIRECTIVE Health Care Decision (hx) 07/21/2013 AD ANDREWS DIRECTIVE Health Care Decision (hx) 07/21/2013 AD ANDREWS DIRECTIVE Health Care Decision (hx) 07/21/2013 AD ANDREWS DIRECTIVE Health Care Decision (hx) 07/21/2013 AD ANDREWS DIRECTIVE Health Care Decision (hx) 07/21/2013 AD ANDREWS DIRECTIVE Health Care Decision (hx) 07/21/2013 AD ANDREWS DIRECTIVE Health Care Decision (hx) 07/21/2013 AD ANDREWS DIRECTIVE Health Care Decision (hx) 07/21/2013 AD ANDREWS DIRECTIVE Health Care Decision (hx) 07/21/2013 AD ANDREWS DIRECTIVE Health Care Decision (hx) 07/21/2013 AD ANDREWS DIRECTIVE Health Care Decision (hx) 07/21/2013 AD ANDREWS DIRECTIVE Health Care Decision (hx) 07/21/2013 AD ANDREWS DIRECTIVE Health Care Decision (hx) 07/21/2013 AD ANDREWS DIRECTIVE Health Care Decision (hx) 07/21/2013 AD ANDREWS DIRECTIVE Health Care Decision (hx) 07/21/2013 AD ANDREWS DIRECTIVE Health Care Decision (hx) 07/21/2013 AD ANDREWS DIRECTIVE Health Care Decision (hx) 07/21/2013 AD ANDREWS DIRECTIVE Health Care Decision (hx) 07/21/2013 AD ANDREWS DIRECTIVE Health Care Decision (hx) 07/21/2013 AD ANDREWS DIRECTIVE Health Care Decision (hx) 07/21/2013 AD ANDREWS DIRECTIVE Health Care Decision (hx) 07/21/2013 AD ANDREWS DIRECTIVE Health Care Decision (hx) 07/21/2013 AD ANDREWS DIRECTIVE Health Care Decision (hx) 07/21/2013 AD ANDREWS DIRECTIVE Health Care Decision (hx) 07/21/2013 AD ANDREWS DIRECTIVE Health Care Decision (hx) 07/18/2013 AD ANDREWS DIRECTIVE Health Care Decision (hx) 07/18/2013 AD ANDREWS DIRECTIVE Health Care Decision (hx) 07/18/2013 AD ANDREWS DIRECTIVE Health Care Decision (hx) 07/18/2013 AD ANDREWS DIRECTIVE Health Care Decision (hx) 07/18/2013 AD ANDREWS DIRECTIVE Health Care Decision (hx) 07/18/2013 AD ANDREWS DIRECTIVE Health Care Decision (hx) 07/18/2013 AD ANDREWS DIRECTIVE Health Care Decision (hx) 07/18/2013 AD ANDREWS DIRECTIVE Health Care Decision (hx) 07/18/2013 AD ANDREWS DIRECTIVE Health Care Decision (hx) 07/18/2013 AD ANDREWS DIRECTIVE Health Care Decision (hx) 07/18/2013 AD ANDREWS DIRECTIVE Health Care Decision (hx) 07/18/2013 AD ANDREWS DIRECTIVE Health Care Decision (hx) 07/18/2013 AD ANDREWS DIRECTIVE Health Care Decision (hx) 07/18/2013 AD ANDREWS DIRECTIVE Health Care Decision (hx) 07/18/2013 AD ANDREWS DIRECTIVE Health Care Decision (hx) 07/18/2013 AD ANDREWS DIRECTIVE Health Care Decision (hx) 07/18/2013 AD ANDREWS DIRECTIVE Health Care Decision (hx) 07/18/2013 AD ANDREWS DIRECTIVE Health Care Decision (hx) 07/18/2013 AD ANDREWS DIRECTIVE Health Care Decision (hx) 07/18/2013 AD ANDREWS DIRECTIVE Health Care Decision (hx) 07/18/2013 AD ANDREWS DIRECTIVE Health Care Decision (hx) 07/18/2013 AD ANDREWS DIRECTIVE Health Care Decision (hx) 07/18/2013 AD ANDREWS DIRECTIVE Health Care Decision (hx) 07/18/2013 AD ANDREWS DIRECTIVE Health Care Decision (hx) 07/18/2013 AD ANDREWS DIRECTIVE Health Care Decision (hx) 07/18/2013 AD ANDREWS DIRECTIVE Health Care Decision (hx) 07/18/2013 AD ANDREWS DIRECTIVE Health Care Decision (hx) 07/18/2013 AD ANDREWS DIRECTIVE Health Care Decision (hx) 07/18/2013 AD ANDREWS DIRECTIVE Health Care Decision (hx) 07/18/2013 AD ANDREWS DIRECTIVE Health Care Decision (hx) 07/18/2013 AD ANDREWS DIRECTIVE Health Care Decision (hx) 07/18/2013 AD ANDREWS DIRECTIVE Health Care Decision (hx) 07/18/2013 AD ANDREWS DIRECTIVE Health Care Decision (hx) 07/18/2013 AD ANDREWS DIRECTIVE Health Care Decision (hx) 07/18/2013 AD ANDREWS DIRECTIVE Health Care Decision (hx) 07/18/2013 AD ANDREWS DIRECTIVE Health Care Decision (hx) 07/18/2013 AD ANDREWS DIRECTIVE Health Care Decision (hx) 07/18/2013 AD ANDREWS DIRECTIVE Health Care Decision (hx) 07/18/2013 AD ANDREWS DIRECTIVE Health Care Decision (hx) 07/18/2013 AD ANDREWS DIRECTIVE Health Care Decision (hx) 07/18/2013 AD ANDREWS DIRECTIVE Health Care Decision (hx) 07/18/2013 AD ANDREWS DIRECTIVE Health Care Decision (hx) 07/18/2013 AD ANDREWS DIRECTIVE Health Care Decision (hx) 07/18/2013 AD ANDREWS DIRECTIVE Health Care Decision (hx) 07/18/2013 AD ANDREWS DIRECTIVE Health Care Decision (hx) 07/18/2013 AD ANDREWS DIRECTIVE Health Care Decision (hx) 07/18/2013 AD ANDREWS DIRECTIVE Health Care Decision (hx) 07/18/2013 AD ANDREWS DIRECTIVE Health Care Decision (hx) 07/18/2013 AD ANDREWS DIRECTIVE Health Care Decision (hx) 07/18/2013 AD ANDREWS DIRECTIVE Health Care Decision (hx) 07/18/2013 AD ANDREWS DIRECTIVE Health Care Decision (hx) 07/18/2013 AD ANDREWS DIRECTIVE Health Care Decision (hx) 07/18/2013 AD ANDREWS DIRECTIVE Health Care Decision (hx) 07/18/2013 AD ANDREWS DIRECTIVE Health Care Decision (hx) 07/18/2013 AD ANDREWS DIRECTIVE Health Care Decision (hx) 07/18/2013 AD ANDREWS DIRECTIVE Health Care Decision (hx) 07/18/2013 AD ANDREWS DIRECTIVE Health Care Decision (hx) 07/18/2013 AD ANDREWS DIRECTIVE Health Care Decision (hx) 07/18/2013 AD ANDREWS DIRECTIVE Health Care Decision (hx) 07/18/2013 AD ANDREWS DIRECTIVE Health Care Decision (hx) 07/18/2013 AD ANDREWS DIRECTIVE Health Care Decision (hx) 07/18/2013 AD ANDREWS DIRECTIVE Health Care Decision (hx) 07/18/2013 AD ANDREWS DIRECTIVE Health Care Decision (hx) 07/18/2013 AD ANDREWS DIRECTIVE Health Care Decision (hx) 07/18/2013 AD ANDREWS DIRECTIVE Health Care Decision (hx) 07/18/2013 AD ANDREWS DIRECTIVE Health Care Decision (hx) 07/18/2013 AD ANDREWS DIRECTIVE Health Care Decision (hx) 07/18/2013 AD ANDREWS DIRECTIVE Health Care Decision (hx) 07/18/2013 AD ANDREWS DIRECTIVE Health Care Decision (hx) 07/18/2013 AD ANDREWS DIRECTIVE Health Care Decision (hx) 07/18/2013 AD ANDREWS DIRECTIVE Health Care Decision (hx) 07/18/2013 AD ANDREWS DIRECTIVE Health Care Decision (hx) 07/18/2013 AD ANDREWS DIRECTIVE Health Care Decision (hx) 07/18/2013 AD ANDREWS DIRECTIVE Health Care Decision (hx) 07/18/2013 AD ANDREWS DIRECTIVE Health Care Decision (hx) 07/18/2013 AD ANDREWS DIRECTIVE Health Care Decision (hx) 07/18/2013 AD ANDREWS DIRECTIVE Health Care Decision (hx) 07/18/2013 AD ANDREWS DIRECTIVE Health Care Decision (hx) 07/18/2013 AD ANDREWS DIRECTIVE Health Care Decision (hx) 07/18/2013 AD ANDREWS DIRECTIVE Health Care Decision (hx) 07/18/2013 AD ANDREWS DIRECTIVE Health Care Decision (hx) 07/18/2013 AD ANDREWS DIRECTIVE Health Care Decision (hx) 07/18/2013 AD ANDREWS DIRECTIVE Health Care Decision (hx) 07/18/2013 AD ANDREWS DIRECTIVE Health Care Decision (hx) 07/18/2013 AD ANDREWS DIRECTIVE Health Care Decision (hx) 07/18/2013 AD ANDREWS DIRECTIVE Health Care Decision (hx) 07/18/2013 AD ANDREWS DIRECTIVE Health Care Decision (hx) 07/18/2013 AD ANDREWS DIRECTIVE Health Care Decision (hx) 07/18/2013 AD ANDREWS DIRECTIVE Health Care Decision (hx) 07/18/2013 AD ANDREWS DIRECTIVE Health Care Decision (hx) 07/18/2013 AD ANDREWS DIRECTIVE Health Care Decision (hx) 07/18/2013 AD ANDREWS DIRECTIVE Health Care Decision (hx) 06/27/2013 AD ANDREWS DIRECTIVE Health Care Decision (hx) 06/27/2013 AD ANDREWS DIRECTIVE Health Care Decision (hx) 06/27/2013 AD ANDREWS DIRECTIVE Health Care Decision (hx) 06/27/2013 AD ANDREWS DIRECTIVE Health Care Decision (hx) 06/27/2013 AD ANDREWS DIRECTIVE Health Care Decision (hx) 06/27/2013 AD ANDREWS DIRECTIVE Health Care Decision (hx) 06/27/2013 AD ANDREWS DIRECTIVE Health Care Decision (hx) 06/27/2013 AD ANDREWS DIRECTIVE Health Care Decision (hx) 06/27/2013 AD ANDREWS DIRECTIVE Health Care Decision (hx) 06/27/2013 AD ANDREWS DIRECTIVE Health Care Decision (hx) 06/27/2013 AD ANDREWS DIRECTIVE Health Care Decision (hx) 06/27/2013 AD ANDREWS DIRECTIVE Health Care Decision (hx) 06/27/2013 AD ANDREWS DIRECTIVE Health Care Decision (hx) 06/27/2013 AD ANDREWS DIRECTIVE Health Care Decision (hx) 06/27/2013 AD ANDREWS DIRECTIVE Health Care Decision (hx) 06/27/2013 AD ANDREWS DIRECTIVE Health Care Decision (hx) 06/27/2013 AD ANDREWS DIRECTIVE Health Care Decision (hx) 06/27/2013 AD ANDREWS DIRECTIVE Health Care Decision (hx) 06/27/2013 AD ANDREWS DIRECTIVE Health Care Decision (hx) 06/27/2013 AD ANDREWS DIRECTIVE Health Care Decision (hx) 06/27/2013 AD ANDREWS DIRECTIVE Health Care Decision (hx) 06/27/2013 AD ANDREWS DIRECTIVE Health Care Decision (hx) 06/27/2013 AD ANDREWS DIRECTIVE Health Care Decision (hx) 06/27/2013 AD ANDREWS DIRECTIVE Health Care Decision (hx) 06/27/2013 AD ANDREWS DIRECTIVE Health Care Decision (hx) 06/27/2013 AD ANDREWS DIRECTIVE Health Care Decision (hx) 06/27/2013 AD ANDREWS DIRECTIVE Health Care Decision (hx) 06/27/2013 AD ANDREWS DIRECTIVE Health Care Decision (hx) 06/27/2013 AD ANDREWS DIRECTIVE Health Care Decision (hx) 06/27/2013 AD ANDREWS DIRECTIVE Health Care Decision (hx) 06/27/2013 AD ANDREWS DIRECTIVE Health Care Decision (hx) 06/27/2013 AD ANDREWS DIRECTIVE Health Care Decision (hx) 06/27/2013 AD ANDREWS DIRECTIVE Health Care Decision (hx) 06/27/2013 AD ANDREWS DIRECTIVE Health Care Decision (hx) 06/27/2013 AD ANDREWS DIRECTIVE Health Care Decision (hx) 06/27/2013 AD ANDREWS DIRECTIVE Health Care Decision (hx) 06/27/2013 AD ANDREWS DIRECTIVE Health Care Decision (hx) 06/27/2013 AD ANDREWS DIRECTIVE Health Care Decision (hx) 06/27/2013 AD ANDREWS DIRECTIVE Health Care Decision (hx) 06/27/2013 AD ANDREWS DIRECTIVE Health Care Decision (hx) 06/27/2013 AD ANDREWS DIRECTIVE Health Care Decision (hx) 06/27/2013 AD ANDREWS DIRECTIVE Health Care Decision (hx) 06/27/2013 AD ANDREWS DIRECTIVE Health Care Decision (hx) 06/27/2013 AD ANDREWS DIRECTIVE Health Care Decision (hx) 06/27/2013 AD ANDREWS DIRECTIVE Health Care Decision (hx) 06/27/2013 AD ANDREWS DIRECTIVE Health Care Decision (hx) 06/27/2013 AD ANDREWS DIRECTIVE Health Care Decision (hx) 06/27/2013 AD ANDREWS DIRECTIVE Health Care Decision (hx) 06/27/2013 AD ANDREWS DIRECTIVE Health Care Decision (hx) 06/27/2013 AD ANDREWS DIRECTIVE Health Care Decision (hx) 06/27/2013 AD ANDREWS DIRECTIVE Health Care Decision (hx) 06/27/2013 AD ANDREWS DIRECTIVE Health Care Decision (hx) 06/27/2013 AD ANDREWS DIRECTIVE Health Care Decision (hx) 06/27/2013 AD ANDREWS DIRECTIVE Health Care Decision (hx) 06/27/2013 AD ANDREWS DIRECTIVE Health Care Decision (hx) 06/27/2013 AD ANDREWS DIRECTIVE Health Care Decision (hx) 06/27/2013 AD ANDREWS DIRECTIVE Health Care Decision (hx) 06/27/2013 AD ANDREWS DIRECTIVE Health Care Decision (hx) 06/27/2013 AD ANDREWS DIRECTIVE Health Care Decision (hx) 06/27/2013 AD ANDREWS DIRECTIVE Health Care Decision (hx) 06/27/2013 AD ANDREWS DIRECTIVE Health Care Decision (hx) 06/27/2013 AD ANDREWS DIRECTIVE Health Care Decision (hx) 06/27/2013 AD ANDREWS DIRECTIVE Health Care Decision (hx) 06/27/2013 AD ANDREWS DIRECTIVE Health Care Decision (hx) 06/27/2013 AD ANDREWS DIRECTIVE Health Care Decision (hx) 06/27/2013 AD ANDREWS DIRECTIVE Health Care Decision (hx) 06/27/2013 AD ANDREWS DIRECTIVE Health Care Decision (hx) 06/27/2013 AD ANDREWS DIRECTIVE Health Care Decision (hx) 06/27/2013 AD ANDREWS DIRECTIVE Health Care Decision (hx) 06/27/2013 AD ANDREWS DIRECTIVE Health Care Decision (hx) 06/27/2013 AD ANDREWS DIRECTIVE Health Care Decision (hx) 06/27/2013 AD ANDREWS DIRECTIVE Health Care Decision (hx) 06/27/2013 AD ANDREWS DIRECTIVE Health Care Decision (hx) 06/27/2013 AD ANDREWS DIRECTIVE Health Care Decision (hx) 06/27/2013 AD ANDREWS DIRECTIVE Health Care Decision (hx) 06/27/2013 AD ANDREWS DIRECTIVE Health Care Decision (hx) 06/27/2013 AD ANDREWS DIRECTIVE Health Care Decision (hx) 06/27/2013 AD ANDREWS DIRECTIVE Health Care Decision (hx) 06/27/2013 AD ANDREWS DIRECTIVE Health Care Decision (hx) 06/27/2013 AD ANDREWS DIRECTIVE Health Care Decision (hx) 06/27/2013 AD ANDREWS DIRECTIVE Health Care Decision (hx) 06/27/2013 AD ANDREWS DIRECTIVE Health Care Decision (hx) 06/27/2013 AD ANDREWS DIRECTIVE Health Care Decision (hx) 06/27/2013 AD ANDREWS DIRECTIVE Health Care Decision (hx) 06/27/2013 AD ANDREWS DIRECTIVE Health Care Decision (hx) 06/27/2013 AD ANDREWS DIRECTIVE Health Care Decision (hx) 06/27/2013 AD ANDREWS DIRECTIVE Health Care Decision (hx) 06/27/2013 AD ANDREWS DIRECTIVE Health Care Decision (hx) 06/27/2013 AD ANDREWS DIRECTIVE Health Care Decision (hx) 06/27/2013 AD ANDREWS DIRECTIVE Health Care Decision (hx) 06/27/2013 AD ANDREWS DIRECTIVE Health Care Decision (hx) 06/27/2013 AD ANDREWS DIRECTIVE Health Care Decision (hx) 06/19/2013 AD ANDREWS DIRECTIVE Health Care Decision (hx) 06/19/2013 AD ANDREWS DIRECTIVE Health Care Decision (hx) 06/19/2013 AD ANDREWS DIRECTIVE Health Care Decision (hx) 06/19/2013 AD ANDREWS DIRECTIVE Health Care Decision (hx) 06/19/2013 AD ANDREWS DIRECTIVE Health Care Decision (hx) 06/19/2013 AD ANDREWS DIRECTIVE Health Care Decision (hx) 06/19/2013 AD ANDREWS DIRECTIVE Health Care Decision (hx) 06/19/2013 AD ANDREWS DIRECTIVE Health Care Decision (hx) 06/19/2013 AD ANDREWS DIRECTIVE Health Care Decision (hx) 06/19/2013 AD ANDREWS DIRECTIVE Health Care Decision (hx) 06/19/2013 AD ANDREWS DIRECTIVE Health Care Decision (hx) 06/19/2013 AD ANDREWS DIRECTIVE Health Care Decision (hx) 06/19/2013 AD ANDREWS DIRECTIVE Health Care Decision (hx) 06/19/2013 AD ANDREWS DIRECTIVE Health Care Decision (hx) 06/19/2013 AD ANDREWS DIRECTIVE Health Care Decision (hx) 06/19/2013 AD ANDREWS DIRECTIVE Health Care Decision (hx) 06/19/2013 AD ANDREWS DIRECTIVE Health Care Decision (hx) 06/19/2013 AD ANDREWS DIRECTIVE Health Care Decision (hx) 06/19/2013 AD ANDREWS DIRECTIVE Health Care Decision (hx) 06/19/2013 AD ANDREWS DIRECTIVE Health Care Decision (hx) 06/19/2013 AD ANDREWS DIRECTIVE Health Care Decision (hx) 06/19/2013 AD ANDREWS DIRECTIVE Health Care Decision (hx) 06/19/2013 AD ANDREWS DIRECTIVE Health Care Decision (hx) 06/19/2013 AD ANDREWS DIRECTIVE Health Care Decision (hx) 06/19/2013 AD ANDREWS DIRECTIVE Health Care Decision (hx) 06/19/2013 AD ANDREWS DIRECTIVE Health Care Decision (hx) 06/19/2013 AD ANDREWS DIRECTIVE Health Care Decision (hx) 06/19/2013 AD ANDREWS DIRECTIVE Health Care Decision (hx) 06/19/2013 AD ANDREWS DIRECTIVE Health Care Decision (hx) 06/19/2013 AD ANDREWS DIRECTIVE Health Care Decision (hx) 06/19/2013 AD ANDREWS DIRECTIVE Health Care Decision (hx) 06/19/2013 AD ANDREWS DIRECTIVE Health Care Decision (hx) 06/19/2013 AD ANDREWS DIRECTIVE Health Care Decision (hx) 06/19/2013 AD ANDREWS DIRECTIVE Health Care Decision (hx) 06/19/2013 AD ANDREWS DIRECTIVE Health Care Decision (hx) 06/19/2013 AD ANDREWS DIRECTIVE Health Care Decision (hx) 06/19/2013 AD ANDREWS DIRECTIVE Health Care Decision (hx) 06/19/2013 AD ANDREWS DIRECTIVE Health Care Decision (hx) 06/19/2013 AD ANDREWS DIRECTIVE Health Care Decision (hx) 06/19/2013 AD ANDREWS DIRECTIVE Health Care Decision (hx) 06/19/2013 AD ANDREWS DIRECTIVE Health Care Decision (hx) 06/19/2013 AD ANDREWS DIRECTIVE Health Care Decision (hx) 06/19/2013 AD ANDREWS DIRECTIVE Health Care Decision (hx) 06/19/2013 AD ANDREWS DIRECTIVE Health Care Decision (hx) 06/19/2013 AD ANDREWS DIRECTIVE Health Care Decision (hx) 06/19/2013 AD ANDREWS DIRECTIVE Health Care Decision (hx) 06/19/2013 AD ANDREWS DIRECTIVE Health Care Decision (hx) 06/19/2013 AD ANDREWS DIRECTIVE Health Care Decision (hx) 06/19/2013 AD ANDREWS DIRECTIVE Health Care Decision (hx) 06/19/2013 AD ANDREWS DIRECTIVE Health Care Decision (hx) 06/19/2013 AD ANDREWS DIRECTIVE Health Care Decision (hx) 06/19/2013 AD ANDREWS DIRECTIVE Health Care Decision (hx) 06/19/2013 AD ANDREWS DIRECTIVE Health Care Decision (hx) 06/19/2013 AD ANDREWS DIRECTIVE Health Care Decision (hx) 06/19/2013 AD ANDREWS DIRECTIVE Health Care Decision (hx) 06/19/2013 AD ANDREWS DIRECTIVE Health Care Decision (hx) 06/19/2013 AD ANDREWS DIRECTIVE Health Care Decision (hx) 06/19/2013 AD ANDREWS DIRECTIVE Health Care Decision (hx) 06/19/2013 AD ANDREWS DIRECTIVE Health Care Decision (hx) 06/19/2013 AD ANDREWS DIRECTIVE Health Care Decision (hx) 06/19/2013 AD ANDREWS DIRECTIVE Health Care Decision (hx) 06/19/2013 AD ANDREWS DIRECTIVE Health Care Decision (hx) 06/19/2013 AD ANDREWS DIRECTIVE Health Care Decision (hx) 06/19/2013 AD ANDREWS DIRECTIVE Health Care Decision (hx) 06/19/2013 AD ANDREWS DIRECTIVE Health Care Decision (hx) 06/19/2013 AD ANDREWS DIRECTIVE Health Care Decision (hx) 06/19/2013 AD ANDREWS DIRECTIVE Health Care Decision (hx) 06/19/2013 AD ANDREWS DIRECTIVE Health Care Decision (hx) 06/19/2013 AD ANDREWS DIRECTIVE Health Care Decision (hx) 06/19/2013 AD ANDREWS DIRECTIVE Health Care Decision (hx) 06/19/2013 AD ANDREWS DIRECTIVE Health Care Decision (hx) 06/19/2013 AD ANDREWS DIRECTIVE Health Care Decision (hx) 06/19/2013 AD ANDREWS DIRECTIVE Health Care Decision (hx) 06/19/2013 AD ANDREWS DIRECTIVE Health Care Decision (hx) 06/19/2013 AD ANDREWS DIRECTIVE Health Care Decision (hx) 06/19/2013 AD ANDREWS DIRECTIVE Health Care Decision (hx) 06/19/2013 AD ANDREWS DIRECTIVE Health Care Decision (hx) 06/19/2013 AD ANDREWS DIRECTIVE Health Care Decision (hx) 06/19/2013 AD ANDREWS DIRECTIVE Health Care Decision (hx) 06/19/2013 AD ANDREWS DIRECTIVE Health Care Decision (hx) 06/19/2013 AD ANDREWS DIRECTIVE Health Care Decision (hx) 06/19/2013 AD ANDREWS DIRECTIVE Health Care Decision (hx) 06/19/2013 AD ANDREWS DIRECTIVE Health Care Decision (hx) 06/19/2013 AD ANDREWS DIRECTIVE Health Care Decision (hx) 06/19/2013 AD ANDREWS DIRECTIVE Health Care Decision (hx) 06/19/2013 AD ANDREWS DIRECTIVE Health Care Decision (hx) 06/19/2013 AD ANDREWS DIRECTIVE Health Care Decision (hx) 06/19/2013 AD ANDREWS DIRECTIVE Health Care Decision (hx) 06/19/2013 AD ANDREWS DIRECTIVE Health Care Decision (hx) 06/19/2013 AD ANDREWS DIRECTIVE Health Care Decision (hx) 06/19/2013 AD ANDREWS DIRECTIVE Health Care Decision (hx) 06/19/2013 AD ANDREWS DIRECTIVE * Full Code - Confirmed (Latest Code Status on File) Date Activated Date Inactivated Comments 04/05/2025 2:28 PM 04/07/2025 6:36 PM This code s tatus was ascertained in the following way: Code status discussion: discussion with patient To update the patient's code status, place a code status order. Do not modify or discontinue any currently active code status orders. * Full Code - Default Date Activated Date Inactivated Comments 04/05/2025 10:07 AM 04/05/2025 2:28 PM This is ord er is used when code status has not been discussed with the patient, or code status is otherwise unknown/unconfirmed To update the patient's code status, place a code status order. Do not modify or discontinue any currently active code status orders. Healthcare Agents on File Name Relationship [facility] Agent [facility] Sharla Carroll Relative Health Care Agent Care Teams E Learning Coordinator Relationship Specialty Start Date End Date Lu Ibrahim MD [address] [place] [phone] PCP - General Internal Medicine 04/02/25
--- OUTSIDE RECORDS SUMMARY | 2025-04-16 19:43 | XMS_ITS | Encounter Summary ---
Author Organization [facility] Address [address] [place] [address] Care Team Providers Care City Letter Carrier Name Role Phone Lu Ibrahim MD Primary Care Prov ider Encounter Details Date Type Department Care Team (Late st Contact Info) Description 04/10/2025 Results Follow-Up Gastroenterology - 299 [facility] [address] [phone] Tiara Doyle NP [address] [address] Social History Tobacco Use Types Packs/Day Years [...] care for your loved ones. For example, rn child or elderly care for an older adult? [...] Assessment Author No 04/04/2025 7:55 AM Sharla Gatuhier RN * Because of a physical, mental, [...] Info) Description 04/17/2025 9:30 AM EST Appointment [facility] [address] [place] [phone] 04/22/2025 10:30 AM EST Office Visit Adult Medicine [address] [phone] Lu Ibrahim MD [address] [place] [address] 07/01/2025 8:30 AM EST Office Visit Adult Medicine [address] [phone] Lu Ibrahim MD [address] [place] [address] 08/27/2025 8:45 AM EDT Office Visit [facility] Hematology Oncology [address] [place] [phone] Oswald Souza MD [address] [place] [address] documented as of this encounter Visit Diagnoses Not on filedocumented in this encounter Additional Health Concerns Assessment Noted Time PHQ-9 Depression Total Score: 9 03/30/20 11:48 AM EST documented as of this encounter Care Teams City Letter Carrier Relationship Specialty Start Date End Date Lu Ibrahim MD [address] [place] [phone] PCP - General Internal Medicine 04/02/25 documented as of this encounter
--- OUTSIDE RECORDS SUMMARY | 2025-04-16 19:43 | XMS_ITS | Encounter Summary ---
Author Organization [facility] Address [address] [place] [address] Care Team Providers Care Energy Conservation Representative Name Role Phone Lu Gomes MD Primary Care Prov ider Encounter Details Date Type Department Care Team Description 10/20/2021 Social Work [facility] Oncology Services [address] [place] [address] Fadi Morse [facility] Social History Tobacco Use Types Packs/Day Years [...] file Not on file Not on file documented as of this encounter Plan of Treatment Not on file documented as of this encounter Visit Diagnoses Not on filedocumented in this encounter Care Teams Energy Conservation Representative Relationship Specialty Start Date End Date Lu Gomes MD [address] [place] [address] PCP - General Internal Medicine 08/10/22 documented as of this encounter
--- OUTSIDE RECORDS SUMMARY | 2025-04-16 19:43 | XMS_ITS | Encounter Summary ---
Author Organization [employer] Address [address] [place] [address] Care Team Providers Care Fish Checker Name Role Phone Unavailable Primary Care Provider Unavailabl e Encounter Details Date Type Department Care Team (Late st Contact Info) Description 10/31/2022 Telephone [facility] ADULT DENTAL [address] [place] [address] Felicita Sun, BDS [address] [place] [address] Social History Tobacco Use Types Packs/Day Years Used Date Smoking Tobacco: Never Smokeless Tobacco: Never Comments Unknown Sex and Gender Information Value Date Recorded Sex Assigned at Female 09/26/2022 1:16 PM EDT Legal Sex Female 1:12 PM EDT Gender Identity Female 09/26/2022 1:16 PM EDT Sexual Orientation Choose not to disclose 2022 1:16 PM EDT COVID-19 Exposure Response Date Recorded In the last 10 days, have yo u been in contact with someone who was confirmed or suspected to have Coronavirus/COVID-19? No / Unsure 10/05/2022 3:09 PM EDT documented as of this encounter Plan of Treatment Not on file documented as of this encounter Visit Diagnoses Not on filedocumented in this encounter
--- OUTSIDE RECORDS SUMMARY | 2025-04-16 19:43 | XMS_ITS | Encounter Summary ---
Author Organization [facility], Address [address] [place] [address] Phone Care Team Providers Care Cyber Transport Systems Specialist Name Role Phone Lu Gomes MD Primary Care Provider + Encounter Details Date Type Department Care Team (Late st Contact Info) Description 03/09/2025 Documentation Only [facility], [address] [place] [address] Jammie Martinez [address] [place] [address] Social History Tobacco Use Types [...] on filedocumented in this encounter Care Teams Cyber Transport Systems Specialist Relationship Specialty Start Date End Date Lu Gomes MD [address] [place] [phone] PCP - General 11/27/24 documented as of this encounter
--- OUTSIDE RECORDS SUMMARY | 2025-04-16 19:43 | XMS_ITS ---
Author Organization [facility] Address [address] [place] [address] Phone Care Team Providers Care Building Services Engineer Name Role Phone Lu Ibrahim MD Primary Care Prov ider Active Problems Problem Noted Date Diagnosed Date Secondary malignant neoplasm of other specified sites ([facility] V24, [facility] V28) 04/15/2025 Assessment & Plan (04/15/2025 12:24 PM EST): Patient with advance left breast malignancy. Initially there was concerned for metastatic disease given her neurological symptoms, however no evidence of it. Moderate major depression ([facility]/HCC V24, [facility] V28) 04/15/2025 Assessment & Plan (04/15/2025 12:24 PM EST): Positive screening for depression. She is already established with and follows regularly. Continue Fluoxetine 10mg, Lorazepam as needed. Aphasia 04/06/2025 CVA (cerebral vascular accident) (CMS/HCC V24, C DC/HCC V28) 04/05/2025 History of recurrent deep vein thrombosis (DVT) 12/29/2024 Assessment & Plan (12/29/2024 3:26 PM EDT): Patient with a history of DVT, currently on Apixaban, with good tolerance. No bleedings. Will continue same medication. Anxiety 12/29/2024 Assessment & Plan (03/30/2025 3:53 PM EST): Follows regularly with . Continue Fluoxetine, Lorazepam. No SI,HI. Will continue [...] Luteinizing hormone; Future Follicle stimulating hormone; Future Current Treatment and Therapy Plans CENTRAL VENOUS ACCESS ( CVA ) MAINTENANCE / BLOOD DRAW / CATHETER CLEARANCE / DRESSING CHANGE / FLUSH* Plan Start Date:04/22/2024 Plan Provider:Oswald Souza MD Linked Problems Primary malignant neoplasm o f breast with metastasis (CMS/HCC V24, CMS/HCC V28) Treatment Medications No medications scheduled. Past Treatment and Therapy Plans No past plan information found.
--- OUTSIDE RECORDS SUMMARY | 2025-04-16 19:43 | XMS_ITS | Encounter Summary ---
Author Organization [employer] Address [address] [facility] 7[address] [place] [address] Care Team Providers Care Truss Builder Name Role Phone Unavailable Primary Care Provider Unavailabl e Reason for Visit * Reason Onset Date Comments upcoming appt 10/04/2022 Encounter Details Date Type Department Care Team (Late st Contact Info) Description 10/04/2022 Telephone [facility] DENTAL [address] [place], [place] [phone] Anastasiia Mackay [address] [place], [place] [phone] upcoming appt Social History Tobacco Use Types Packs/Day Years [...] PM EDT documented as of this encounter Miscellaneous Notes * Telephone Encounter - Judi Monet - 10/04/2022 2:13 PM EDT Pt stated that she did not want xrays because she had xrays done at [facility]. She insisted that she did not need a record release signed w/either office because medical care could not be withheld due to lack of records. I spoke w/Jason at [facility] dental and requested the recordss request. Jessestated pt had to go in and sign a release form in order to do so. I followed up with patient to inform that she must follow up with Jason at [facility]. She said she call and follow up DR documented in this encounter Plan of Treatment Not on file documented as of this encounter Visit Diagnoses Not on filedocumented in this encounter
--- OUTSIDE RECORDS SUMMARY | 2025-04-16 19:43 | XMS_ITS | Encounter Summary ---
Author Organization [facility], Address [address] [place] [address] Phone Care Team Providers Care Programmer Name Role Phone Lu Gomes MD Primary Care Provider + Encounter Details Date Type Department Care Team (Late st Contact Info) Description 12/26/2024 Documentation Only [facility], [address] [place] [address] [place], [place] [address] [place] [address] Social History Tobacco Use Types [...] on filedocumented in this encounter Care Teams Programmer Relationship Specialty Start Date [place] [phone] PCP - General 11/27/24 documented as of this encounter
--- OUTSIDE RECORDS SUMMARY | 2025-04-16 19:43 | XMS_ITS | Encounter Summary ---
Author Organization [facility] Address [address] [address] Phone Care Team Providers Care Correction Officer Name Role Phone Katrin Vivas MD Unavailable [phone] Oswald Souza MD Unavailable [phone] Cyndee Young MD, MPH Unavailable [phone] Rashida Weber MD Unavailable [phone] Oswald Souza MD Unavailable [phone] Shelia Rodríguez MD Primary Care Provider [phone] Katrin Mcgrath PACKAGE DYEING MACHINE OPERATOR Unavailable [phone] Lu Gomes MD Primary Care Prov ider Mary Ann Aiken MD Unavailable [phone] Sarina rC NUCLEAR POWER PLANT ENGINEER Unavailable [phone] Reed Barnett DMD Unavailable [phone] Pacheco Whatley MD Unavailable [phone] Ulices Santana MD Unavailable [phone] Encounter Details Date Type Department Care Team (Late st Contact Info) Description 01/27/2022 Procedure Pass [facility], Ct Scan - [address] [phone] Social History Tobacco Use Types Packs/Day Years [...] high school, GED, job training, learning the Israeli language, technical skills, or developing parenting skills)? [...] Upcoming Encounters Date Type Department Care Team ([facility] st Contact Info) Description 06/09/2025 10:00 AM EST Office Visit [facility] Urology [address] [facility] [address] [place] [phone] Karolnia Greco MD [address] [place] [phone] [email or web address] documented as of this encounter Visit Diagnoses Not on filedocumented in this encounter Care Teams Correction Officer Relationship Specialty Start Date End Date Shelia Rodríguez MD [address] [place] [phone] PCP - General Internal Medicine 01/27/22 03/28/22 Lu Gomes MD [address] [place] [address] PCP - General Unknown Provider Specialty 03/29/22 Katrin Vivas MD [address] [place] [phone] General Surgery 07/13/21 03/29/23 Oswald Souza MD [address] [address] [email or web address] 07/13/21 2 Cyndee Young MD, MPH [address] [place] [phone] [email or web address] Medical Oncology 07/13/21 Rashida Weber MD [address] [place] [phone] [email or web address] Surgeon Urology 07/21/21 Oswald Souza MD [address] [address] [email or web address] 10/21/21 Katrin Mcgrath CNP [address] [place] [phone] [email or web address] Nurse Practitioner Medical Oncology 03/08/22 Mary Ann Aiken MD [address] [place] [phone] Pulmonary Disease 10/16/22 Sarina Cr, [address] [address] [email or web address] Safety Attendant Medical Oncology 02/19/23 Reed Barnett DMD [address] [place] [phone] 03/30/23 Pacheco Whatley MD [address] [place] [phone] Cardiology 03/30/23 Ulices Santana MD [address] [place] [address] [place] [phone] [email or web address] Psychiatrist Psychiatry 04/09/23 documented as of this encounter Additional Source Comments The information contained in this document represents components of the legal health record. It is not the complete legal health record.[facility]
--- OUTSIDE RECORDS SUMMARY | 2025-04-16 19:43 | XMS_ITS | Clinical Summary ---
Author Organization [facility], Address [address] [place] [address] Phone Care Team Providers Care Hot Dog Vender Name Role Phone Lu Gomes MD Primary Care Provider + Allergies Active Allergy Reactions Criticality Noted Date Comments Denture Adhesive 08/19/2021 Hydrocodone Hives Low 09/20/2024 Hydrocodone-Acetaminophen Rash Low 08/19/2021 Penicillins Hives Low 12/28/2017 Sulfa Antibiotics Hives Low 12/28/2017 Medications Albuterol Sulfate 108 (90 Base) MCG/ACT aerosol powder Inhale 1 puff Active Calcium Carb-Cholecalci ferol 600-20 MG-MCG tablet Take 1 tablet by mouth 03/03/2025 Active apixaban (ELIQUIS) 2.5 MG tablet Take 2.5 mg by mouth in the morning and 2.5 mg in the evening. 12/11/2022 Active Ferrous Sulfate (IRON PO) Take by mouth Active FLUoxetine (PROzac) 10 MG capsule Take 10 mg by mouth in the morning. 06/30/2024 Active fluticasone-cindy meterol (Advair HFA) 230-21 MCG/ACT inhaler Inhale 2 puffs 12/19/2021 Active letrozole (FEMARA) 2.5 MG chemo tablet Take 2.5 mg by mouth in the morning. 12/01/2024 Active LORazepam (ATIVAN) 0.5 MG tablet Take 0.5 mg by mouth 2 times daily as needed 07/08/2021 Active oxyCODONE (ROXICODONE) 5 MG immediate release tablet Take 5 mg by mouth every 6 hours as needed 02/03/2025 Active Palbociclib 100 MG tablet Take 100 mg by mouth in the morning. 10/04/2022 Active rosuvastatin (CRESTOR) 10 MG tablet Take 10 mg by mouth in the morning. 02/24/2025 Active valACYclovir (VALTREX) 500 MG tablet Take 500 mg by mouth in the morning and 500 mg in the evening. 06/22/2021 Active Active Problems Problem Noted Date Diagnosed Date Left flank pain 03/13/2025 Acquired hydronephrosis due to ureteropelvic junction obstruction 03/13/2025 Other hydronephrosis 03/13/2025 Anxiety 12/29/2024 History of recurrent deep vein thrombosis 2024 Encounters Date Type Department Care Team Description 03/20/2025 Documentation Only [facility] [address] [place] [address] Michelle Mendieta MA 03/13/2025 2:30 PM EDT Office Visit [facility] [address] [place] [address] Arpit Ward DO Other hydronephrosis (Primary Dx); Left flank pain; Acquired hydronephrosis due to ureteropelvic junction obstruction 03/09/2025 Documentation Only [facility] [address] [place] [address] Jammie Martinez from Last 3 Months Immunizations Immunization Administration Dates Next Due Hepatitis A 07/22/2012,06/28/2009 Hepatitis B 06/28/2009,01/27/2009,11/17/2008 Influenza, Injectable, Madin [place] Canine Kidney, Preservative Free 02/11/2024 Influenza, MDCK, PF, Quadrivalent 02/08/2021 Influenza, Quadrivalent, Preservative Free 02/06,01/18/2022 Influenza, Unspecified 03/28/2017 Pneumococcal Polysaccharide 01/23/2022 Shingrix 12/31/2023,09/26/2023 Td 05/28/2001 Tdap 09/21/2020 Social History Tobacco Use Types Packs/Day Years Used Date Smoking Tobacco: Never Assessed Comments Unknown Sex and Gender Information Value Date Recorded Sex Assigned at Not on file Legal Sex Female 3:30 PM EDT Gender Identity Not on file Sexual Orientation Not on file Last Filed Vital Signs Vital Sign Reading Time Taken Comments Blood Pressure 120/74 03/13/2025 3:10 PM EDT Pulse 78 03/13/2025 3:10 PM EDT Temperature - - Respiratory Rate - - Oxygen Saturation - - Inhaled Oxygen Concentration - - Weight - - Height - - Body Mass Index - - Plan of Treatment Health Maintenance Due Date Last Done Comments Breast Cancer Screening 1960 Colorectal Cancer Screening: Annual FOBT 2011 Colorectal Cancer Screening: Colonoscopy 2011 Colorectal Cancer Screening: Sigmoidoscopy 2011 Pneumococcal Vaccine: 50+ Years (2 of 2 - PCV) 01/23/2023 01/23/2022 Hepatitis B Vaccine Aged Out 06/28/2009, 01/27/2009, 11/17/2008 No longer eligible based on patient's age to complete this topic Influenza Vaccine Completed 03/09/2025, , 02/06/2023, Additional history exists Insurance Medicare Medicaid [place] Care Teams Hot Dog Vender Relationship Specialty Start Date End Date Lu Gomes MD [address] [place] [id number] PCP - General 11/27/24
--- OUTSIDE RECORDS SUMMARY | 2025-04-16 19:43 | XMS_ITS | Encounter Summary ---
Author Organization [facility], Address [address] [place] [address] Phone Care Team Providers Care Compensation Associate Name Role Phone Lu Gomes MD Primary Care Provider + Encounter Details Date Type Department Care Team (Late st Contact Info) Description 03/20/2025 Documentation Only [facility], [address] [place] [address] [place], [place] [address] [place] [address] Social History Tobacco Use Types [...] on filedocumented in this encounter Care Teams Compensation Associate Relationship Specialty Start Date [place] [address] PCP - General 11/27/24 documented as of this encounter
--- OUTSIDE RECORDS SUMMARY | 2025-04-16 19:43 | XMS_ITS ---
Author Organization [facility] Address [address] [facility] [address] [place] [address] Phone Care Team Providers Care Wood Router Hand Name Role Phone Cyndee Young MD, MPH Unavailable [phone] Rashida Weber MD Unavailable [phone] Oswald Souza MD Unavailable [phone] Katrin Mcgrath W BRIDGE WORKER Unavailable [phone] Lu Gomes MD Primary Care Prov ider Mary Ann Aiken MD Unavailable Sarina Cr CUSTOMER ACQUISITION SPECIALIST Unavailable [phone] Reed Barnett DMD Unavailable Pacheco Whatley MD Unavailable [phone] Ulices Santana MD Unavailable Active Problems Patient Care Coordination No te [...] carcinoma of breast in female 0 07/13/2021 Current Treatment and Therapy Plans No current plan information found. Past Treatment and Therapy Plans Oncology Therapy Plan Plan Name Start Date Discontinue Date Treatment Medications Discontinue Reason Plan Provider ZOLEDRONIC ACID (ZOMETA) 03/29/2022 02/19/2025 No medications scheduled. m. Entered in error Katrin Mcgrath, BRIDGE WORKER
--- OUTSIDE RECORDS SUMMARY | 2025-04-16 19:43 | XMS_ITS ---
Author Organization [facility] Address [address] [place] [address] Care Team Providers Care Medical Office Assistant Instructor Name Role Phone Lu Gomes MD Primary Care Prov ider Active Problems Problem Noted Date Diagnosed Date Primary malignant neoplasm of breast with metast asis 12/13/2021 Overview: Inactive diagnosis replaced for August 2022 IMO Load Current Oncology Plans No current plan information found. Past Plans ONCOLOGY INFUSION THERAPY Plan Name Start Date Discontinue Date Treatment Medications Discontinue Reason Plan Provider [facility] ZOLEDRONIC ACID (ZOMETA) Q 6 MONTHS 04/25/2022 02/11/2024 zoledronic acid (ZOMETA) Therapy Complete Oswald Souza MD [facility] ZOLEDRONIC ACID (ZOMETA) Q 6 MONTHS 12/26/2021 04/25/2022 Saline Flush 0.9 %sodium chloride (NS) 0.9 %zoledronic acid (ZOMETA) Not Effective Oswald Souza MD [facility] DENOSUMAB 120MG (XGEVA) 01/03/2022 12/23/2021 denosumab (XGEVA) Entered in error Oswald Souza MD Radiation Treatments * No radiation treatments are documented for this [facility] in [facility]. Treatments may have been administered in another system.
--- OUTSIDE RECORDS SUMMARY | 2025-04-16 19:43 | XMS_ITS | Encounter Summary ---
Author Organization [employer] Address [address] [place] [address] Care Team Providers Care Hopper Filler Name Role Phone Unavailable Primary Care Provider Unavailabl e Reason for Visit * Reason Onset Date Comments Prior Authorization 10/31/2022 Encounter Details Date Type Department Care Team (Late st Contact Info) Description 10/31/2022 Telephone [facility] [address] [place], [place] [phone] Anastasiia Mackay [address] [place], [place] [phone] Prior Authorization Social History Tobacco Use Types Packs/Day Years [...] encounter Miscellaneous Notes * Telephone Encounter - Jennifer Bucio - 10/31/2022 10:57 AM EDT Trish called in to verify if prior authorization for [facility] had been cancelled so that Prior Authorization in [facility] could be come active for patient to be seen. Upon contacting [facility], it was explained to me by Lisa that the patient had been informed that she had to contact the insurance herself as the patient and let [facility] know that she was looking to get this treatment elsewhere. It was explained by Lisa that the patient was rude and told her that she, Lisa, had to contact the insurance herself. Lisa explained that she will contact the insurance again and will reach out to patient by with an update as to where the prior authorization and appt stand. Explained this to patient and she understood DR documented in this encounter Plan of Treatment Not on file documented as of this encounter Visit Diagnoses Not on filedocumented in this encounter
--- OUTSIDE RECORDS SUMMARY | 2025-04-16 19:44 | XMS_ITS | Encounter Summary ---
Author Organization [facility] Address [address] [address] Phone Care Team Providers Care Director Of Group Sales Name Role Phone Erin Marsh MD Primary Care Provider Katrin Vivas MD Unavailable Oswald Souza MD Unavailable Cyndee Young MD, MPH Unavailable Rashida Weber MD Unavailable Oswald Souza MD Unavailable Shelia Rodríguez MD Primary Care Provider [phone] Katrin Mcgrath MATTRESS FILLING MACHINE TENDER Unavailable [phone] Lu Gomes MD Primary Care Prov ider Mary Ann Aiken MD Unavailable Sarina Cr BORE MINER OPERATOR Unavailable Reed Barnett DMD Unavailable [phone] Pacheco Whatley MD Unavailable [phone] Ulices Santana MD Unavailable [phone] Encounter Details Date Type Department Care Team (Late st Contact Info) Description 11/26/2021 Transcribe Orders [facility] [address] [place] [address] Erin Marsh MD [address] [place] [address] Social History Tobacco Use Types Packs/Day Years [...] high school, GED, job training, learning the [place] language, technical skills, or developing parenting skills)? [...] Description 06/09/2025 10:00 AM EST Office Visit [facility] Urology [address] [place] [address] Karolina Greco MD [address] [place] [id number] [email or web address] documented as of this encounter Visit Diagnoses Not on filedocumented in this encounter Care Teams Director Of Group Sales Relationship Specialty Start Date End Date Erin Marsh MD [address] [place] [address] PCP - General Internal Medicine 07/13/21 01/26/22 Shelia Rodríguez MD [address] [place] [address] PCP - General Internal Medicine 01/27/22 03/28/22 Lu Gomes MD [address] [place] [address] PCP - General Unknown Provider Specialty 03/29/22 Katrin Vivas MD [address] [address] General Surgery 07/13/21 03/29/23 Oswald Souza MD [address] [address] [email or web address] Internal Medicine 07/13/21 Cyndee Brown MD, MPH [address] [place] [id number] [email or web address] 07/13/21 Rashida Weber MD [address] [place] [address] Surgeon Urology 07/21/21 Oswald Souza MD [address] [place] [address] [email or web address] Internal Medicine 10/21/21 Katrin Mcgrath CNP [address] [place] [phone] [email or web address] [email or web address] Medical Oncology 03/08/22 Mary Ann Aiken MD [address] [place] [address] Pulmonary Disease 10/16/22 Sarina Cr, [address] [address] [email or web address] Medical Oncology 02/19/23 Reed Barnett DMD [address] [place] [address] 03/30/23 Pacheco Whatley MD [address] [place] [address] Cardiology 03/30/23 Ulices Santana MD [address] [facility] [address] [place] [id number] [email or web address] Psychiatrist Psychiatry 04/09/23 documented as of this encounter Additional Source Comments The information contained in this document represents components of the legal health record. It is not the complete legal health record.[facility]
--- OUTSIDE RECORDS SUMMARY | 2025-04-16 19:44 | XMS_ITS ---
Author Name [facility] Organization Unknown Care Team Organization Name Specialty Phone Email Start Date End Da te [facility] 01/14/2025 [facility] Lu Gomes Primary Care 11/03/2022 01/14/2024 [facility] ALEX FRENCH Primary Care 04/04/20222023
--- OUTSIDE RECORDS SUMMARY | 2025-04-16 19:44 | XMS_ITS ---
Author Organization [facility] Address [address] [place] [address] Phone Care Team Providers Care Building Custodial Supervisor Name Role Phone Lu Ibrahim MD Primary Care Prov ider Transitional Care Management Status:Ongoing (Active) Start date:04/07/2025 Enrollment date:04/07/2025 Enrollment reason:Identified using hospital discharge data Case Team Name Relationship Phone Tavon Montana LPN(Responsible Staff) Pure Culture Operator Continued Care and Services Coordination
== END 2025-04-16 14:52 | disposition home or self-care (01) ==
LOC: HO.HSM 14:17
PROVIDERS: PCP Internal Medicine; Visit Provider Psychiatry & Neurology Neurology
DX: G56.03 Carpal tunnel syndrome, bilateral upper limbs (principal); F45.9 Somatoform disorder, unspecified; R47.9 Unspecified speech disturbances
CPT/HCPCS: 99214

== ENCOUNTER → 2025-04-16 14:17 | Outpatient (BNVA) | payer MEDICAID, SELFPAY | PROVIDERS: PCP Internal Medicine; Visit Provider Psychiatry & Neurology Neurology | DX: G56.03 Carpal tunnel syndrome, bilateral upper limbs (principal); F45.9 Somatoform disorder, unspecified; R47.9 Unspecified speech disturbances; A69.20 Lyme disease, unspecified | CPT/HCPCS: 99212 ==

== ENCOUNTER 2025-04-20 12:39 | Outpatient (RCR) | payer MEDICARE, MEDICAID, SELFPAY ==
--- NOTE | 2025-04-21 16:17 | MHC.SP.ADU ---
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 Per referral note; ?On 03/19, the patient went to the ER with symptoms of suspected heart attack, including left arm numbness and jaw pain, but a heart attack was ruled out; an EKG showed an anterolateral NC of undetermined age. Subsequently the patient was admitted to the ER on April 04 for vertigo and again on April 05 for dysarthria, which was concerning for a stroke. A comprehensive workup including a CT with contrast, MRI with contrast, and an EEG were all negative, ruling out stroke, brain metastases, and bulbar aphasia. An in-hospital neurology consultation suggested a diagnosis of migraine with aura. During the workup, the patient tested positive for lyme disease? Current symptoms include slurred speech that has not changed since 04/04, drooling, and intermittent episodes of numbness in the right fingers?.? Meenakshi with ?moderate speech problem that was fluctuating as we were talking. Sometime she was slurring and sometime she was missing words,? during her Neurology appointment. Neurology concludes that Meenakshi?s speech disturbances are a psychosomatic disorder vs physical due to all testing being negative. Meenakshi was encouraged to seek help from a psychiatrist. Meenakshi reports frustration with her current speech production. She reports that her production of speech worsens with fatigue. Meenakshi has been recently diagnosed with lyme disease and is currently on antibiotics. She reports heavily researching since her diagnosis and believes that she is in between Stage 2 and 3 for lyme disease and strongly believes lyme disease is the cause of her speech disturbances. Meenakshi currently lives by herself. Her children and grandchildren live close by. 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 Medical History: Acid Reflux Allergies Arthritis Asthma Cancer: other Cardiovascular Disease Hearing Loss Heart Attack Pneumonia Lyme disease Migraines with Aura Medication List: Recent Hospitalizations: Yes: [facility] for Stroke-like symptoms- all imaging (-) Respiratory Needs: Room Air Patient Orientation: Alert & Oriented x 4 Social History: Employment Status: Retired Highest level of education obtained: Completed Associate Deg. Current Living Situation: Meenakshi currently resides alone; her children and grandchildren are close by Assistive Devices in use: Glasses/Contacts Other Therapies Seen in Current Calendar Year: None Reported Speech, Language, Cognition difficulties: Speaking Comments: Meenakshi reports frustration with current speech production. Quality of Life: Meenakshi denies any changes in quality of life due to speech production. Reports fatigue limits her social activities. Patient Stated Goal of Speech-Language Therapy: Improve speech sound production Assessment Speech Production: Aphasic: Fluent Dysarthric Rapid Slurred Clinical Impression: Impaired Observations: Meenakshi?s speech was mildly fast and moderately slurred. Meenakshi?s SMR?s and AMR?s were slow and precise, except for /d/ which was fast and imprecise. Correct lingual placement for /d/, but impaired lingual movement. Meenakshi displayed gross symmetry at rest and with both labial retraction/protrusion. Meenakshi was able to puff her cheeks and maintain a labial seal. Lingual range of motion (ROM) was deemed within functional limits. No weakness noted with tongue protrusion into bilateral cheeks against pressure. Strength and ROM of the jaw is deemed to be within functional limits. Noted very mild drooling during conversational speech; Meenakshi reports that this is new since 04/04/25. Meenakshi?s intelligibility informally assessed during conversations and completion of language assessments. Noted articulation errors during naming test. Meenakshi with difficulties with consonant clusters, /d/, /l/, /f/, /v/. Noted imprecise stress and decrease in precision with multisyllabic words. Meenakshi was independently able to correct /improve intelligibility with slowing rate of speech, placing adequate pauses, and overt articulating. Intelligibility noted during conversation/evaluation ~60-70%. Informal Voice Assessment: Voice Loudness: Normal Voice Nasal Resonance: Normal Voice Oral Resonance: Normal Voice Phonatory-based Quality: Hoarse Voice Pitch: Normal Voice Other Observations: Disordered Intonation, Disordered Stress Pattern Clinical Impression: Intact Tests of Speech & Lang Adults: BNT Clinical Impression: Impaired Observations: Meenkashi completed the [place] Naming Test (BNT) Standard Form. She was presented with line drawing, which she was instructed to name in a confrontation naming task. Meenakshi spontaneously named 50 out of 60 images. Meenakshi was aware of mislabeling and attempted to correct herself, but still struggled to find the right word. When the clinician described the meaning of the words (semantic cues i.e. ?This is something on a door? for target word ?knocker?), Meenakshi named 3 additional images. Meenakshi was also responsive to sound cues (phonemic cues i.e. ?pal?? for target word ?palette?), Meenakshi named 5 additional images with this stimulus. Meenakshi was able to identify the target word from a choice of 4 written words in all trails, additionally labeling 2 more images. After different stimuli, Meenakshi was able to successfully label all 60 images. Based on these observations, Meenakshi presents with very mild anomia that is stimulable by all cueing methods, but more with phonemic cueing. Noted omission of small words (i.e. articles, prepositions, pronouns, conjunctions, etc) during conversational speech impacting understanding. Impressions and Recommendations Summary: Meenakshi is a 64 year old female presenting with mild-moderate dysarthria and very mild anomic aphasia. The etiology of these disorders is ambiguous. She is recommended outpatient speech therapy 1x weekly for 6-8 weeks to train strategies from improved speech intelligibility and word retrieval. Recommendation for Speech Therapy: Outpatient Speech Therapy Frequency/Duration: 1x weekly for 45 minutes Date Range for Service Requested: 6-8 weeks Time to Reassess: PRN Electrical Discharge Machine Operator Goals: LTG 1: Meenakshi will utilize a variety of word-finding strategies at conversational level with minimal assistance in >80% opportunities presented to her LTG 2: Meenakshi will participate in conversation at 80% intelligibility given minimal verbal cues to utilize clear speech strategies in order to communicate thoughts, feelings, and needs. Short Term Goals: Goal # : 1.1 Meenakshi will form verbal sentences without omissions of ?small words? (i.e. articles, prepositions, pronouns, conjunctions, etc) when given a visual or written prompt in 80% opportunities when provided with minimal verbal cues. Goal Status: New Goal Goal# : 2.1 Meenakshi will use at least two compensatory strategies (over articulation/ slow rate/ writing aleman word/increase respiratory support for speech) to improve speech intelligibility while engaging in a semi-structured conversation in 80% of opportunities when provided with minimal verbal cues 2.2 Meenakshi will over articulate words and short phrases with target sounds (consonant clusters,/d/, /l/, /f/, /v/) in 80% of opportunities when provided with minimal verbal cues Goal Status: New Goal Recommended Referrals to be Discussed with Primary Care Provider: Neuropsychological Eval Patient Education: Completed: Yes Patient/Caregiver Education: Described Results of Evaluation Patient expressed understanding of evaluation Patient agrees with goals and treatment plan Comments/Barriers to Learning: Web Machine Tender Clinican/Clinical Fellow: No Supervisory Statement: No Speech Language Pathologist: Sofía Cabral M.A., CCC-ARMORED CAR GUARD AND DRIVER
== END 2025-05-05 11:50 | disposition still patient (30) ==
LOC: HO.SH 12:39
PROVIDERS: PCP Internal Medicine; Visit Provider Psychiatry & Neurology Neurology
DX: F45.9 Somatoform disorder, unspecified (principal); R47.9 Unspecified speech disturbances
CPT/HCPCS: 92523